=== PATIENT | male | born 1950 | race Caucasian/White ===

== ENCOUNTER 2023-09-19 07:41 | Outpatient (OUT) | payer MEDICARE, SELFPAY | END 2023-09-19 07:42 | disposition home or self-care (01) | LOC: PST 07:42 | PROVIDERS: PCP Family Medicine; Visit Provider Surgery | DX: Z01.818 Encounter for other preprocedural examination (principal); Z12.11 Encounter for screening for malignant neoplasm of colon ==

== ENCOUNTER 2023-09-27 08:31 | Day surgery (SDC) | payer MEDICARE, SELFPAY ==
--- NOTE | 2023-09-27 | OP_ITS ---
OPERATION DATE: ??09/27/2023 PREOPERATIVE DIAGNOSIS:? Colorectal screening. POSTOPERATIVE DIAGNOSIS:? Severe sigmoid diverticulosis, 7 mm pedunculated sigmoid polyp and internal/external hemorrhoids. PROCEDURE:? Colonoscopy to cecum with hot snare polypectomy x1. SURGEON:? Darell Keys M.D. ANESTHESIA:? Monitored anesthesia care. ESTIMATED BLOOD LOSS:? Less than 1 mL. INDICATIONS AND CONSENT:? Patient is a 73-year-old male presents for colorectal screening.? Indications, risks, benefits, alternatives of proceeding with colonoscopy were explained extensively to the patient, including the risks of bleeding, colon perforation or anesthetic complications.? All of his questions were answered.? Informed consent was obtained. PROCEDURE:? Patient brought to the operating room, placed in the left lateral decubitus position.? Monitored anesthesia care was provided.? Rectal exam was performed which showed no masses or blood.? The scope was inserted into the anal canal.? Under direct visualization was advanced.? It was advanced to the cecum where cecal markings were clearly identified.? There was noted to be a good prep.? Upon withdrawal of the scope, mucosal surfaces were carefully examined.? There were no mass lesions or inflammatory changes.? There was severe sigmoid diverticulosis with large, wide mouth diverticula, without inflammatory changes or scarring.? In the distal sigmoid, there was noted to be a pedunculated, 7 mm, erythematous polyp that was removed with hot snare with good hemostasis.? The scope was retroflexed in the anal canal.? There was noted to be internal/external hemorrhoids without stigmata of recent bleeding, as well as prominent rectal veins.? Scope was then withdrawn.? Patient tolerated procedure well, was sent to recovery room in good condition. f/u colonoscopy likely in 3 years CC:? Aly Garrett
[2023-09-27 08:35] VITALS: PULSE 65; RESP 16; TEMP 36.2; O2SAT 99; BMI 27.4
[2023-09-27] MEDS: LACTATED RINGER'S SOLUTION 1,000 ML 50 ML IV (08:55)
[2023-09-27 11:15] VITALS: BP 100/58; PULSE 79; RESP 16; O2SAT 99
[2023-09-27 11:34] VITALS: BP 97/62; PULSE 67; RESP 16; O2SAT 96
--- NOTE | 2023-09-27 11:36 | PC.NURSE ---
small non-bleeding abrasion noted left medial cheek area
== END 2023-09-27 11:48 | disposition home or self-care (01) ==
PROVIDERS: PCP Family Medicine; Visit Provider Surgery
PROC: (CPT 45385; principal; 2023-09-27 09:30)
DX: Z12.11 Encounter for screening for malignant neoplasm of colon (principal); D12.5 Benign neoplasm of sigmoid colon; K64.4 Residual hemorrhoidal skin tags; K57.30 Diverticulosis of large intestine without perforation or abscess without bleeding; N40.1 Benign prostatic hyperplasia with lower urinary tract symptoms; N52.9 Male erectile dysfunction, unspecified; K21.9 Gastro-esophageal reflux disease without esophagitis; I10 Essential (primary) hypertension; E03.9 Hypothyroidism, unspecified; K64.8 Other hemorrhoids; E66.3 Overweight; Z68.29 Body mass index [BMI] 29.0-29.9, adult; Z95.5 Presence of coronary angioplasty implant and graft; Z79.82 Long term (current) use of aspirin; I25.10 Atherosclerotic heart disease of native coronary artery without angina pectoris
CPT/HCPCS: 45385; 88305; J2704

== ENCOUNTER 2024-11-11 10:42 | Emergency (ER) | payer MEDICARE, SELFPAY ==
[2024-11-11 10:47] VITALS: BP 158/88; PULSE 74; TEMP 36.8; O2SAT 98; BMI 26.6
[2024-11-11 10:48] VITALS: BP 158/88; O2SAT 99
--- OUTSIDE RECORDS SUMMARY | 2024-11-11 10:56 | XMS_ITS | CCD ---
Author Organization [facility] Care Team Providers Care Costing Manager Name Role Phone KARAN HERNANDES Unavailable Unavailable HOUSE, TYLER Unavailable Unavailable Unavailable Unavailable House, Tyler Kinsey Unavailable HOUSE, DR PHILLIPS Primary Care Unavailable HERNANDES, DR KARAN Molina Attending Unavailable HERNANDES, DR KARAN Molina Consulting Unavailable HERNANDES, DR KARAN Molina Admitting Unavailable HOUSE, DR PHILLIPS Attending Unavailable HOUSE, DR PHILLIPS Consulting Unavailable HOUSE, DR PHILLIPS Primary Care Unavailable HOUSE, DR PHILLIPS Admitting Unavailable Hernandes, Dr. Karan Hoffman Referring Janeth vailable House, Dr. Tyler Hernandez Primary Care Unava ilable Hernandes, Dr. Karan Hoffman Attending Janeth vailable Hernandes, Dr. Karan Hoffman Attending Janeth vailable Hernandes, Dr. Karan Hoffman Referring Janeth vailable House, Dr. Tyler Hernandez Primary Care Unava ilable Hernandes, Dr. Karan Hoffman Attending Janeth vailable Hernandes, Dr. Karan Hoffman Referring Janeth vailable [place], Dr. Tyler Hernandez Primary Care Unava ilable Juani Bishop Primary Care Physician Juani Bishop MD Primary Care Provider [phone] MD Karan Hernandes Attending Provider MD Juani Bishop Primary Care Provider MD Aníbal Nelson Emergency Provider Aníbal Nelson Admitting Unavailable Aníbal Nelson Attending Unavailable Juani Bishop Primary Care Unavailable Karan Hernandes Attending Unavailable Juani Bishop Primary Care Unavailable Karan Hernandes Admitting Unavailable KARAN HERNANDES Attending Unavailable JUANI BISHOP Primary Care Unavailable KARAN HERNANDES Attending Unavailable KARAN HERNANDES Referring Unavailable JUANI BISHOP Primary Care Unavailable Juani Bishop Attending Unavailable Juani Bishop Attending Unavailable Juani Bishop Attending Unavailable Juani Bishop Admitting Unavailable Juani Bishop Attending Unavailable Juani Bishop Attending Unavailable Juani Bishop Attending Unavailable Juani Bishop Attending Unavailable Juani Bishop Attending Unavailable Juani Bishop Attending Unavailable Juani Bishop Admitting Unavailable Juani Bishop Attending Unavailable Juani Bishop Attending Unavailable Allergies Allergy Classification Reported Allergen(s) Allergy Type Date of Onset Reaction(s) Facility (11 sources) Angiotensin Converting Enzyme (Chandrakant) Inhibitors; Translations: [CHANDRAKANT Inhibitors] Allergy to drug (finding) 3 [facility], Other [facility] 3 Repository (2 sources) Angiotensin-con verting enzyme inhibitor agent Drug Allergy 3 [facility] (3 sources) clopidogrel; Translations: [CLOPIDOGREL] Drug Allergy 4 [facility] Work Phone: (1 source) Angiotensin Converting Enzyme (Chandrakant) Inhibitors Drug allergy (disorder) 4 [facility] Repository (2 sources) No Known Medication Allergies; Translations: [No Known Medication Allergies] Propensity to adverse reactions (disorder) [facility] Repository Medications Current Medications Medication Drug Class(es) Dates Sig (Normalized) Sig (Original) allopurinol 300 mg oral tablet (12 sources) Xanthine Oxidase Inhibitor Start: 06-04-2024 take 1 tablet by mouth once daily allopurinol 300 mg Tab See Instructions, TAKE 1 TABLET BY MOUTH EVERY DAY, # 90 tab(s), Refills(s) 0, Pharmacy: [facility] #[id number], 171, cm, 04/25/24 9:36:00 EDT, Height/Length Dosing, 77.9, kg, 04/25/24 9:36:00 EDT, Weight Dosing Start Date: 06/04/24 Status: Ordered Start: 08-25-2023 take 300 mg by mouth once willian y Allopurinol Active 300 MG PO Daily January 15, 2024 1:00am amLODIPine 5 mg oral tablet (16 sources) Dihydropyridine Calcium Channel Baldemar Start: 05-26-2022 End: 05-14-2025 take 1 tablet by mouth once daily amLODIPine (Norvasc) 5 mg tablet Indications: Benign essential hypertension Take 1 tablet (5 mg) by mouth once daily. 90 tablet 3 05/14/2024 05/14/2025 Active aspirin 81 mg delayed release oral tablet (17 sources) Platelet Aggregation Inhibitor, Nonsteroidal Anti-inflammatory Drug Start: 10-25-2024 End: 10-25-2025 take 1 tablet by mouth three times weekly aspirin 81 mg EC tablet Indications: Atherosclerosis of [place] coronary artery of [place] heart without angina pectoris Take 1 tablet (81 mg) by mouth 3 (three) times a week. 36 tablet 3 10/25/2024 10/25/2025 Active Start: 08-25-2023 take 1 tablet by elke th once daily Aspirin Low Dose 81 mg oral enteric coated tablet TAKE 1 TABLET BY MOUTH DAILY Start Date: 08/25/23 Status: Ordered Start: 06-10-2022 End: 10-24-2024 take 1 tablet by mouth once daily aspirin 81 mg EC tablet Indications: Atherosclerosis of [place] coronary artery of [place] heart without angina pectoris TAKE 1 TABLET BY MOUTH DAILY 90 tablet 3 10/18/2023 10/24/2024 Discontinued (Reorder) atenolol 50 mg oral tablet (17 sources) beta-Adrenergic Baldemar Start: 08-12-2024 take 1 tablet by mouth once daily atenolol (Tenormin) 50 mg tablet Indications: Benign essential hypertension TAKE 1 TABLET BY MOUTH EVERY DAY 90 tablet 3 08/12/2024 Active Start: 08-25-2021 take 50 mg by mouth once daily Atenolol Active 50 MG PO Daily January 15, 2024 1:00am atorvastatin 40 mg oral tablet (16 sources) HMG-CoA Reductase Inhibitor Start: 05-26-2022 End: 05-14-2025 take 1 tablet by mouth once daily atorvastatin (Lipitor) 40 mg tablet Indications: Mixed hyperlipidemia Take 1 tablet (40 mg) by mouth once daily. 90 tablet 3 05/14/2024 05/14/2025 Active clopidogrel 75 mg oral tablet (1 source) P2Y12 Platelet Inhibitor Start: 01-15-2024 take 75 mg by mouth once daily Clopidogrel Active 75 MG PO Daily January 15, 2024 1:00am escitalopram 10 mg oral tablet (1 source) Serotonin Reuptake Inhibitor Start: 06-13-2024 take 1 tablet by mouth once daily escitalopram 10 mg Tab See Instructions, TAKE 1 TABLET BY MOUTH DAILY, # 30 tab(s), Refills(s) 0, Pharmacy: [facility] #[id number], 171, cm, 04/25/24 9:36:00 EDT, Height/Length Dosing, 77.9, kg, 04/25/24 9:36:00 EDT, Weight Dosing Start Date: 06/13/24 Status: Ordered lamoTRIgine 100 mg oral tablet (12 sources) Mood Stabilizer, Anti-epileptic Agent Start: 08-25-2023 take 1 tablet by mouth once daily lamotrigine 100 mg Tab See Instructions, TAKE 1 TABLET BY MOUTH DAILY, # 90 tab(s), Refills(s) 0, Pharmacy: [facility] #[id number], 171, cm, 04/25/24 9:36:00 EDT, Height/Length Dosing, 77.9, kg, 04/25/24 9:36:00 EDT, Weight Dosing Start Date: 06/13/24 Status: Ordered take 1 tablet by mouth once willian y lamoTRIgine ER 100 MG Oral Tablet Extended Release 24 Hour Take 1 tablet daily Quantity: 0 Refills: 0 Ordered: 21-Sep-2022 DO Active levothyroxine sodium 0.075 mg oral tablet (12 sources) l-Thyroxine Start: 06-13-2024 take 1 tablet by mouth once daily levothyroxine 75 mcg (0.075 mg) Tab See Instructions, TAKE 1 TABLET BY MOUTH DAILY, # 90 tab(s), Refills(s) 0, Pharmacy: [facility] #[id number], 171, cm, 04/25/24 9:36:00 EDT, Height/Length Dosing, 77.9, kg, 04/25/24 9:36:00 EDT, Weight Dosing Start Date: 06/13/24 Status: Ordered Start: 01-15-2024 take 75 ug by mouth once daily Levothyroxine Active 75 MCG PO Daily January 15, 2024 1:00am Start: 08-25-2023 take 1 tablet by elke once daily levothyroxine 75 mcg (0.075 mg) Tab 75 mcg = 1 tab(s), Oral, Daily, # 90 tab(s), Refills(s) 0 Start Date: 08/25/23 Status: Ordered nitroglycerin 0.4 mg sublingual tablet (3 sources) Nitrate Vasodilator Start: 08-25-2023 nitroglycerin 0.4 mg sublingual Tab 0.4 mg = 1 tab(s), SubLingual, q5min, PRN for chest pain, # 100 tab(s), Refills(s) 0 Start Date: 08/25/23 Status: Ordered pantoprazole 40 mg delayed release oral tablet (11 sources) Proton Pump Inhibitor Start: 09-12-2024 End: 09-12-2025 take 1 tablet by mouth once daily before mealtime pantoprazole (ProtoNix) 40 mg EC tablet Indications: Other chest pain Take 1 tablet (40 mg) by mouth once daily in the morning. Take before meals. 90 tablet 3 09/12/2024 09/12/2025 Active Start: 09-21-2022 take 40 mg by mouth once daily Pantoprazole Active 40 MG PO Daily January 15, 2024 1:00am sildenafil 100 mg oral tablet (12 sources) Phosphodiesterase 5 Inhibitor Start: 08-25-2023 take 1 tablet by mouth once daily as needed sildenafil 100 mg Tab 100 mg = 1 tab(s), Oral, Daily, PRN for erectile dysfunction, Refills(s) 0 Start Date: 08/25/23 Status: Ordered tamsulosin hydrochloride 0.4 mg oral capsule (2 sources) alpha-Adrenergic Baldemar Start: 08-25-2023 take 1 capsule by mouth once daily Flomax 0.4 mg Cap 0.4 mg = 1 cap(s), Oral, Daily, # 90 cap(s), Refills(s) 0, Pharmacy: [facility] #[id number], 166, cm, 08/25/23 8:58:00 EDT, Height/Length Dosing, 80, kg, 08/25/23 8:58:00 EDT, Weight Dosing Start Date: 08/25/23 Status: Ordered ticagrelor 90 mg oral tablet (3 sources) Start: 03-15-2024 End: 03-15-2025 take 1 tablet by mouth twice daily ticagrelor (Brilinta) 90 mg tablet Indications: Status post coronary angioplasty Take 1 tablet (90 mg) by mouth 2 times a day. 180 tablet 3 03/15/2024 03/15/2025 Active valsartan 80 mg oral tablet (12 sources) Angiotensin 2 Receptor Baldemar Start: 08-12-2024 take 1 tablet by mouth once daily valsartan (Diovan) 80 mg tablet Indications: Benign essential hypertension TAKE 1 TABLET BY MOUTH DAILY 90 tablet 3 08/12/2024 Active Start: 09-21-2022 take 80 mg by mouth once daily Valsartan Active 80 MG PO Daily January 15, 2024 1:00am Completed/Discontinued Medications Medication Drug Class(es) Dates Sig (Normalized) Sig (Original) bifidobacterium animalis [id number] unt / lactobacillus acidophilus [id number] unt oral capsule (6 sources) Probiotic CAPS T CONCEPCIÓN 1 CAPSULE Daily Quantity: 0 Refills: 0 Ordered: 21-Sep-2022 DO Active Problems Active Problems Problem Classification Problem Date Documented Da te Episodic/Chronic Anxiety disorders (1 source) Anxiety attack 02-22-2024 Chronic Coronary atherosclerosis and other heart disease (20 sources) Atherosclerotic heart disease of [place] coronary artery without angina pectoris; Translations: [Coronary atherosclerosis] Onset: 8 04-02-2024 Chronic Coronary atherosclerosis and other heart disease (1 source) Coronary atherosclerosis and other heart disease Onset: 8 Disorders of lipid metabolism (17 sources) Mixed hyperlipidemia; Translations: [Mixed hyperlipidemia] Onset: 2 04-02-2024 Chronic Diverticulosis and diverticulitis (1 source) Diverticulosis of sigmoid colon 10-17-2023 Chronic Esophageal disorders (3 sources) Gastroesophageal reflux disease without esophagitis 08-25-2023 Chronic Essential hypertension (20 sources) Benign essential hypertension; Translations: [Benign essential hypertension] Onset: 2 Chronic Essential hypertension (1 source) Essential hypertension Onset: 8 Gout and other crystal arthropathies (20 sources) Gout; Translations: [Gout, unspecified] Onset: 2 Chronic Hyperplasia of prostate (4 sources) Benign prostatic hyperplasia without lower urinary tract symptoms; Translations: [Benign prostatic hypertrophy with outflow obstruction] Onset: 2 08-25-2023 Chronic Other and unspecified benign neoplasm (1 source) Benign neoplasm of sigmoid colon 10-17-2023 Episodic Other diseases of kidney and ureters (1 source) Urinary tract obstruction; Translations: [Other obstructive and reflux uropathy] Onset: 3 Episodic Other gastrointestinal disorders (3 sources) Constipation 08-25-2023 Episodic Other male genital disorders (3 sources) Impotence 08-25-2023 Chronic Other male genital disorders (1 source) Pain in testicle 11-21-2023 Episodic Other nutritional; endocrine; and metabolic disorders (17 sources) Overweight in adulthood with body mass index of 25 or more but less than 30; Translations: [Body Mass Index 27.0-27.9, adult] Onset: 4 08-25-2023 Episodic Other screening for suspected conditions (not mental disorders or infectious disease) (1 source) Screening for malignant neoplasm of colon done; Translations: [Encounter for screening for malignant neoplasm of colon] Onset: 3 Episodic Thyroid disorders (19 sources) Hypothyroidism; Translations: [Unspecified acquired hypothyroidism] Onset: 2 08-25-2023 Chronic Unclassified (2 sources) Athscl heart disease of [place] coronary artery w/o ang pctrs / I25.10(ICD-9) Onset: 8 Unclassified (5 sources) Patient encounter status 08-25-2023 Past or Other Problems Problem Classification Problem Date Documented Da te Episodic/Chronic Coronary atherosclerosis and other heart disease (17 sources) Past history of procedure; Translations: [Percutaneous transluminal coronary angioplasty status] Onset: 10-18-2023 04-02-2024 Episodic Nonspecific chest pain (4 sources) Chest pain; Translations: [Other chest pain] Onset: 01-12-2024 01-12-2024 Episodic Other nutritional; endocrine; and metabolic disorders (8 sources) Overweight; Translations: [Overweight] Onset: 04-02-2024 08-25-2023 Episodic Other nutritional; endocrine; and metabolic disorders (1 source) Overweight; Translations: [Overweight] Onset: 04-02-2024 Episodic Other nutritional; endocrine; and metabolic disorders (2 sources) Body mass index (BMI) 26.0-26.9, adult; Translations: [Body mass index (BMI) 26.0-26.9, adult] Onset: 04-02-2024 Episodic Residual codes; unclassified (3 sources) Never smoked tobacco; Translations: [Other specified health status] Onset: 04-02-2024 04-02-2024 Episodic Residual codes; unclassified (2 sources) Other specified health status; Translations: [Other specified health status] Onset: 04-02-2024 Episodic Unclassified (6 sources) Never smoked tobacco; Translations: [Never a smoker] Unclassified (2 sources) Onset: 04-02-2024 04-02-2024 Results Test Name Value Interpretation Reference Range Facil ity Ambulatory Visit Summaryon 1 12-31-2023 Ambulatory Visit Summary Ambulatory Visit Summary GARETH MENJIVAR :1950 Visit Date:10/30/2024 Ambulatory Visit Instructions Your Diagnosis HTN (hypertension) BMI 26.0-26.9,adult Over weight Nonsmoker Anxiety attack GERD without esophagitis Acquired hypothyroidism ED (erectile dysfunction) Gout Your Care Team Attending Physician - Juani Bishop MD Primary Care Physician - Juani Bishop MD This Is Your Medications List sildenafil (sildenafil 100 mg Tab) Contact prescribing physician if questions or concerns allopurinol (allopurinol 300 mg Tab) amlodipine (amLODIPine 5 mg Tab) aspirin (Aspirin Low Dose 81 mg oral enteric coated tablet) atenolol (atenolol 50 mg Tab) atorvastatin (atorvastatin 40 mg Tab) escitalopram (escitalopram 10 mg Tab) lamotrigine (lamotrigine 100 mg Tab) levothyroxine (levothyroxine 75 mcg (0.075 mg) Tab) nitroglycerin (nitroglycerin 0.4 mg sublingual Tab) pantoprazole (Pantoprazole [address] Tab) ticagrelor (ticagrelor 90 mg oral tablet) valsartan (valsartan 80 mg Tab) Procedures Performed Cardiac catheterization (01/15/2024), Colonoscopy (09/27/2023), Coronary artery stent (2015), Amputation of finger of left hand, Arthroscopy of wrist, Colonoscopy, Repair of umbilical hernia, Tonsillectomy. Discharge Vitals Temperature (Temporal Artery) 36.2 ???C Heart Rate (Peripheral) 60 Respiratory Rate 16 Blood Pressure 118/76 Height 171 cm Height 67 in Weight 77.9 kg Weight 171.74 lb BMI 26.64 What to do next Scheduled Follow-Up Appointments Monday 1:00 PM EST With: Where: [address] [address]- Monday 10:45 AM EDT With: Fransisco DAMON, Juani Sorto Where: [address] [address]- Medications What How Much When Instructions Unchanged sildenafil (sildenafil 100 mg Tab) 1 Tablets By Mouth Every day as needed for for erectile dysfunction Pickup at [facility] #[id number] Unchanged allopurinol (allopurinol 300 mg Tab) See instructions TAKE 1 TABLET BY MOUTH EVERY DAY Contact prescribing physician if questions or concerns Unchanged amlodipine (amLODIPine 5 mg Tab) 1 Tablets By Mouth Every day Contact prescribing physician if questions or concerns Unchanged aspirin (Aspirin Low Dose 81 mg oral enteric coated tablet) TAKE 1 TABLET BY MOUTH DAILY Contact prescribing physician if questions or concerns Unchanged atenolol (atenolol 50 mg Tab) 1 Tablets By Mouth Every day Contact prescribing physician if questions or concerns Unchanged atorvastatin (atorvastatin 40 mg Tab) 1 Tablets By Mouth Every day Contact prescribing physician if questions or concerns Unchanged escitalopram (escitalopram 10 mg Tab) See instructions TAKE 1 TABLET BY MOUTH DAILY Contact prescribing physician if questions or concerns Unchanged lamotrigine (lamotrigine 100 mg Tab) See instructions TAKE 1 TABLET BY MOUTH DAILY Contact prescribing physician if questions or concerns Unchanged levothyroxine (levothyroxine 75 mcg (0.075 mg) Tab) See instructions TAKE 1 TABLET BY MOUTH DAILY Contact prescribing physician if questions or concerns Unchanged nitroglycerin (nitroglycerin 0.4 mg sublingual Tab) 1 Tablets Sublingual Every 5 minutes as needed for for chest pain Contact prescribing physician if questions or concerns Unchanged pantoprazole (Pantoprazole [address] Tab) 1 Tablets By Mouth Every day TAKE 1 TABLET BY MOUTH 30 MINUTES BEFORE A MEAL Contact prescribing physician if questions or concerns Unchanged ticagrelor (ticagrelor 90 mg oral tablet) 1 Tablets By Mouth 2 times a day Contact prescribing physician if questions or concerns Unchanged valsartan (valsartan 80 mg Tab) 1 Tablets By Mouth Every day Contact prescribing physician if questions or concerns Pharmacy Information [facility] #[id number]: [address], [place] [phone] Allergies No Known Allergies No Known Medication Allergies Problems Ongoing - Any problem that you are currently receiving treatment for. Acquired hypothyroidism Anemia Anxiety attack Benign neoplasm of sigmoid colon Body mass index (BMI) of 29.0-29.9 in adult BPH with urinary obstruction CAD in [place] artery Constipation ED (erectile dysfunction) GERD without esophagitis Gout HTN (hypertension) Overweight Screening for skin cancer Screening PSA (prostate specific antigen) Sigmoid diverticulosis Testicular pain Patient Survey You may receive a survey via text or e-mail asking about your office visit. Please share your experience with us by completing your survey. We appreciate your feedback and thank you for choosing us for your care. Normal [facility] Family Medicine Office/Clini c Noteon 10-30-2024 Family Medicine Office/Clinic Note Family Medicine Office/Clinic Note HPI Staff Gaerth is a 74 year old male presenting for 6 month follow up htn, anxeity Please ask the patient why they are on Lamictal. Patient says Dr Bhatia put him on this for anxiety Patient is here for follow up on hypertension. How often are you checking your blood pressure? Doesnt check BP at home What are your average readings? N/A, Not checking at home Yearly BMP: 06/19/24_ Follow up for Mental Status: Medication adherence- Yes, takes medication as prescribed Medication refill needed: _ Suicidal thoughts-Not at this time Most recent RAMOS: 6 Most recent PHQ: 0 questions/concerns: none History of Present Illness Patient presents for his 6-month follow-up. Patient has no concerns today outside of staff HPI. Patient needs a refill on his ED medication. Patient believes all of his medical issues are stable without any concerns. Review of Systems PHQ Score Initial Depression Screen Score: 0 SCORE Physical Exam Vitals & Measurements T: 36.2 ???C(Temporal Artery) HR: 60(Peripheral) RR: 16 BP: 118/76 SpO2: 99% HT: 67 in HT: 171 cm WT: 77.9 kg WT: 171.74 lb BMI: 26.64 General: alert, no acute distress ENMT: oral mucosa moist, Cardiovascular: regular rate and rhythm, normal peripheral perfusion Respiratory: Lungs CTA, respirations non labored Extremities: no deformity, no trauma Neurological: oriented x 4, LOC appropriate for age, CN II-XII intact, motor strength equal & normal bilaterally, speech normal Abdomen: Soft, Nontender, Non-distended, + BS Assessment/Plan 1. HTN (hypertension) (I10: Essential (primary) hypertension) At goal today. Will review patient's labs and send them to cardiology. Ordered: Body Mass Index (BMI) documented 3008F Current tobacco non-user 1036F Depression Screening Negative 3352F Most recent diastolic blood pressure <80 mm Hg 3078F Patient screen for fall risk: no falls in last year or 1 fall with no injury in last year 1101F Systolic BP <130 mm Hg (Most Recent) 3074F 2. BMI 26.0-26.9,adult (Z68.26: Body mass index [BMI] 26.0-26.9, adult) BMI education added Ordered: Body Mass Index (BMI) documented 3008F Current tobacco non-user 1036F Depression Screening Negative 3352F Most recent diastolic blood pressure <80 mm Hg 3078F Patient screen for fall risk: no falls in last year or 1 fall with no injury in last year 1101F Systolic BP <130 mm Hg (Most Recent) 3074F 3. Over weight (E66.3: Overweight) Diet and exercise advised Ordered: Body Mass Index (BMI) documented 3008F Current tobacco non-user 1036F Depression Screening Negative 3352F Most recent diastolic blood pressure <80 mm Hg 3078F Patient screen for fall risk: no falls in last year or 1 fall with no injury in last year 1101F Systolic BP <130 mm Hg (Most Recent) 3074F 4. Nonsmoker (Z78.9: Other specified health status) Please continue not to smoke Ordered: Body Mass Index (BMI) documented 3008F Current tobacco non-user 1036F Depression Screening Negative 3352F Most recent diastolic blood pressure <80 mm Hg 3078F Patient screen for fall risk: no falls in last year or 1 fall with no injury in last year 1101F Systolic BP <130 mm Hg (Most Recent) 3074F 5. Anxiety attack (F41.0: Panic disorder [episodic paroxysmal anxiety]) Patient states he uses the Lamictal to help with the anxiety. Patient states it works well for him. Patient states his anxiety is well-controlled. 6. GERD without esophagitis (K21.9: Gastro-esophageal reflux disease without esophagitis) Continue PPI 7. Acquired hypothyroidism (E03.9: Hypothyroidism, unspecified) No symptoms of hypo or hyperthyroidism. Will do labs in a few months to recheck TSH. 8. ED (erectile dysfunction) (N52.9: Male erectile dysfunction, unspecified) Patient would like a refill on his ED medication. Patient states it works well for him. Precautions on the use of nitroglycerin if you have had sildenafil in the last 24 to 48 hours. 9. Gout (M10.9: Gout, unspecified) Will check a uric acid level. Recommended the use of naproxen at the first signs of an attack. Orders: sildenafil, 100 mg = 1 tab(s), Oral, Daily, PRN for erectile dysfunction, # 15 tab(s), Refills(s) 0, Pharmacy: [facility] #[id number], 171, cm, 10/30/24 13:04:00 EST, Height/Length Dosing, 77.9, kg, 10/30/24 13:04:00 EST, Weight Dosing Follow-up No qualifying data available Patient Education BMI for Adults Problem List/Past Medical History Ongoing Acquired hypothyroidism Anemia Anxiety attack Benign neoplasm of sigmoid colon Body mass index (BMI) of 29.0-29.9 in adult BPH with urinary obstruction CAD in [place] artery Constipation ED (erectile dysfunction) GERD without esophagitis Gout HTN (hypertension) Overweight Screening for skin cancer Screening PSA (prostate specific antigen) Sigmoid diverticulosis Testicular pain Historical No qualifying data Procedure/Surgical His (more content not included)... Normal [facility] Comment on above: Result Comment: Elec tronically Signed By: Juani Bishop MD\.br\Date and Time Signed: 10/30/24 13:27 EST Pre-Visit Planningon 024 Pre-Visit Planning Pre-Visit Planning - From: Prudence Horton To: Juani Bishop MD; Sent: 10/29/2024 09:28:41 EST Subject: Pre-Visit Planning Due Date/Time: 10/29/2024 09:28:00 EST Caller Name: GARETH MENJIVAR; Caller Number: , Cory Bishop. During a pre-visit planning chart review, I noted the following medication documented in the medical record: lamotrigine 100 mg PO daily. Based on your medical judgement, can you please indicate what conditions indicate the necessity of the medication/treatment ? I can update the Chronic Problem List with your response if you would like. -Additional comments: In responding to this request, please exercise your independent professional judgement. The fact that a question is asked does not imply that any particular answer is desired or expected. If you have any questions, please feel free to contact me at extension [phone]. Thank you! Prudence Horton LPN Clinical Runstitching Machine Operator [place] [id number] Extension: [phone] [email or web address] - From: Fransisco DAMON, Juani Sorto To: Prudence Horton; Sent: 10/29/2024 12:24:06 EST Subject: RE: Pre-Visit Planning Caller Name: GARETH MENJIVAR; Caller Number: Gerald , Tracy Will ask tomorrow. Normal [facility] CBC w/ Auto Diffon 4 Basophils/100 WBC (Bld) 0.3 % Normal 0.0-2.0 [facility] Comment on above: Performed By: #### 2 [id number] #### [facility] [address] [place] [address] Basophils/Leukocytes Auto (Bld) [Pure # fraction] 0.0 E9/L Normal 0.0-0.2 [facility] Comment on above: Performed By: #### 2 [id number] #### [facility] [address] [place] [address] Eosinophils (Bld) [#/Vol] 0.0 E9/L Normal 0.0-0.5 [facility] Comment on above: Performed By: #### 2 [id number] #### [facility] [address] [place] [address] Eosinophils/100 WBC (Bld) 1.0 % Normal 0.0-8.0 [facility] Comment on above: Performed By: #### 2 [id number] #### [facility] [address] [place] [address] Erythrocyte distribution width (RBC) [Ratio] 13.9 % Normal 10.9-14.2 [facility] Comment on above: Performed By: #### 2 [id number] #### [facility] [address] [place] [address] Hematocrit (Bld) [Volume fraction] 35.5 % Low 37.7-49.0 [facility] Comment on above: Performed By: #### 2 [id number] #### [facility] [address] [place] [address] Hemoglobin (Bld) [Mass/Vol] 11.9 g/dL Low 13.5-17.5 [facility] Comment on above: Performed By: #### 2 [id number] #### [facility] [address] [place] [address] Lymphocytes (Bld) [#/Vol] 1.5 E9/L Normal 1.0-4.0 [facility] Comment on above: Performed By: #### 2 210861 #### [facility] [address] [place] [address] Lymphocytes/100 WBC (Bld) 37.8 % Normal 14.0-50.0 [facility] Comment on above: Performed By: #### 2 [id number] #### [facility] [address] [place] [address] MCH (RBC) [Entitic mass] 31.6 pg Normal 27.0-34.0 [facility] Comment on above: Performed By: #### 2 [id number] #### [facility] [address] [place] [address] MCHC (RBC) [Mass/Vol] 33.6 g/dL Normal 31.4-36.0 [facility] Comment on above: Performed By: #### 2 [id number] #### [facility] [address] [place] [address] MCV (RBC) [Entitic vol] 93.8 fL Normal 80.0-100.0 [facility] Comment on above: Performed By: #### 2 097346 #### [facility] [address] [place] [address] Monocytes (Bld) [#/Vol] 0.2 E9/L Normal 0.2-1.0 [facility] Comment on above: Performed By: #### 2 [id number] #### [facility] [address] [place] [address] Neutrophils (Bld) [#/Vol] 2.3 E9/L Normal 2.0-7.5 [facility] Comment on above: Performed By: #### 2 [id number] #### [facility] [address] [place] [address] Neutrophils/100 WBC (Bld) 55.1 % Normal 36.0-75.0 [facility] Comment on above: Performed By: #### 2 337891 #### [facility] [address] [place] [address] Platelet 149.0 E9/L Low 150.0-500.0 [facility] Comment on above: Performed By: #### 2 551591 #### [facility] [address] [place] [address] Platelet mean volume (Bld) [Entitic vol] 9.3 fL Normal 6.4-10.8 [facility] Comment on above: Performed By: #### 2 [id number] #### [facility] [address] [place] [address] RBC (Bld) [#/Vol] 3.8 E12/L Low 4.3-5.9 [facility] Comment on above: Performed By: #### 2 [id number] #### [facility] [address] [place] [address] WBC corrected for nucl RBC Auto (Bld) [#/Vol] 4.1 E9/L Normal 4.0-11.0 [facility] Comment on above: Performed By: #### 2 235169 #### [facility] [address] [place] [address] CHEMISTRYOrdered By: SYSTEM SYSTEM on 06-19-2024 Albumin [Mass/Vol] 4.5 g/dL Normal 3.3 - 5.0 gm/dL R emisol Chem Albumin/Globulin [Mass ratio] 2.0 {ratio} Normal 1.1 - 2.2 [facility] ALP [Catalytic activity/Vol] 73 [iU]/d Normal 21 - 98 Int._Unit/L [facility] ALT No additional P-5'-P [Catalytic activity/Vol] 19 [iU]/d Normal 6 - 46 Int._Unit/L [facility] Anion gap [Moles/Vol] 13 mmol/L Normal 6 - 16 mEq/L [facility] AST [Catalytic activity/Vol] 22 [iU]/d Normal 5 - 43 Int._Unit/L [facility] Bilirubin [Mass/Vol] 0.9 mg/dL Normal 0.0 - 1.1 mg/dL [facility] Calcium [Mass/Vol] 8.9 mg/dL Normal 8.9 - 11.1 mg/dL [facility] Chloride [Moles/Vol] 102 mmol/L Normal 101 - 111 mmol/ L [facility] Cholesterol [Mass/Vol] 108 mg/dL Low 120 - 200 mg/dL [facility] Cholesterol in HDL [Mass/Vol] 41 mg/dL Invalid Interpretation Code [facility] Comment on above: Result Comment: '>= 60 LOW RISK' '<= 40 HIGH RISK' Cholesterol in LDL [Mass/Vol] 52 mg/dL Normal <=129mg/dL [facility] Cholesterol in VLDL [Mass/Vol] 16 mg/dL Normal 7 - 40 mg/dL [facility] CO2 [Moles/Vol] 25 mmol/L Normal 21 - 31 mmol/L [facility] Creatinine [Mass/Vol] 0.9 mg/dL Normal 0.5 - 1.3 mg/dL [facility] eGFR 91 mL/min/1.73 m2 Normal >=59mL/min/1.73 m2 [facility] Globulin (S) [Mass/Vol] 2.2 g/dL Normal 1.4 - 4.0 gm/dL [facility] Glucose [Mass/Vol] 100 mg/dL Normal 55 - 199 mg/dL Re misol Chem Potassium [Moles/Vol] 4.5 mmol/L Normal 3.5 - 5.3 mmol/L [facility] Prostate specific Ag [Mass/Vol] 1.5 ng/mL Normal 0.1 - 3.5 ng/mL [facility] Comment on above: Interpretive Data: T he concentration of PSA determined by different manufacturers can vary due to differences in assay methods and reagent specificity. Values obtained from different assay methods cannot be used interchangeably. The methodology used for this result was chemiluminescence using [employer]'s Access Hybritech PSA reagent. Protein [Mass/Vol] 6.7 g/dL Normal 6.0 - 7.8 gm/dL R em[facility] Chem Sodium [Moles/Vol] 135 mmol/L Normal 135 - 145 mmol/L [facility] Triglyceride [Mass/Vol] 80 mg/dL Normal <=149mg/dL [facility] TSH Qn 1.85 m[IU]/L Normal 0.34 - 5.60 mcIU/mL Rem [facility] Urate (U) [Mass/Vol] 4.4 mg/dL Normal 2.2 - 7.4 mg/dL [facility] Urea nitrogen [Mass/Vol] 16 mg/dL Normal 5 - 21 mg/dL [facility] Urea nitrogen/Creatinine [Mass ratio] 18 mg/mg Normal 10 - 20 [facility] CMPon 06-19-2024 Albumin [Mass/Vol] 4.5 g/dL Normal 3.3-5.0 [facility] Comment on above: Performed By: #### 2 [id number] #### [facility] [address] [place] [address] Albumin/Globulin (S) [Mass conc ratio] 2.0 Normal 1.1-2.2 [facility] Comment on above: Performed By: #### 2 139416 #### [facility] [address] [place] [address] ALP [Catalytic activity/Vol] 73 Int._Unit/L Normal 21-98 [facility] Comment on above: Performed By: #### 2 606291 #### [facility] [address] [place] [address] ALT No additional P-5'-P [Catalytic activity/Vol] 19 Int._Unit/L Normal 6-46 [facility] Comment on above: Performed By: #### 2 992584 #### [facility] [address] [place] [address] Anion gap [Moles/Vol] 13 mmol/L Normal 6-16 [facility] Comment on above: Performed By: #### 2 710260 #### [facility] [address] [place] [address] AST [Catalytic activity/Vol] 22 Int._Unit/L Normal 5-43 [facility] Comment on above: Performed By: #### 2 053344 #### [facility] [address] [place] [address] Bilirubin [Mass/Vol] 0.9 mg/dL Normal 0.0-1.1 [facility] Comment on above: Performed By: #### 2 451221 #### [facility] [address] [place] [address] Calcium [Mass/Vol] 8.9 mg/dL Normal 8.9-11.1 [facility] Comment on above: Performed By: #### 2 716826 #### [facility] [address] [place] [address] Chloride [Moles/Vol] 102 mmol/L Normal 101-111 [facility] Comment on above: Performed By: #### 2 350749 #### [facility] [address] [place] [address] CO2 [Moles/Vol] 25 mmol/L Normal 21-31 [facility] Comment on above: Performed By: #### 2 331305 #### [facility] [address] [place] [address] Creatinine [Mass/Vol] 0.9 mg/dL Normal 0.5-1.3 [facility] Comment on above: Performed By: #### 2 [id number] #### [facility] [address] [place] [address] Globulin (S) [Mass/Vol] 2.2 g/dL Normal 1.4-4.0 [facility] Comment on above: Performed By: #### 2 001793 #### [facility] [address] [place] [address] Glucose [Mass/Vol] 100 mg/dL Normal 55-199 [facility] Comment on above: Performed By: #### 2 668675 #### [facility] [address] [place] [address] Potassium [Moles/Vol] 4.5 mmol/L Normal 3.5-5.3 [facility] Comment on above: Performed By: #### 2 739697 #### [facility] [address] [place] [address] Protein [Mass/Vol] 6.7 g/dL Normal 6.0-7.8 [facility] Comment on above: Performed By: #### 2 416791 #### [facility] [address] [place] [address] Sodium [Moles/Vol] 135 mmol/L Normal 135-145 [facility] Comment on above: Performed By: #### 2 886956 #### [facility] [address] [place] [address] Urea nitrogen [Mass/Vol] 16 mg/dL Normal 5-21 [facility] Comment on above: Performed By: #### 2 021186 #### [facility] [address] [place] [address] Urea nitrogen/Creatinine [Mass ratio] 18 No Units Normal 10-20 [facility] Comment on above: Performed By: #### 2 [id number] #### [facility] [address] [place] [address] HEMATOLOGYOrdered By: SYSTEM SYSTEM on 06-19-2024 Basophils/100 WBC (Bld) 0.3 % Normal 0.0 - 2.0 % [facility] Basophils/Leukocytes Auto (Bld) [Pure # fraction] 0.0 E9/L Normal 0.0 - 0.2 E9/L [facility] Eosinophils (Bld) [#/Vol] 0.0 E9/L Normal 0.0 - 0.5 E9/L [facility] Eosinophils/100 WBC (Bld) 1.0 % Normal 0.0 - 8.0 % [facility] Erythrocyte distribution width (RBC) [Ratio] 13.9 % Normal 10.9 - 14.2 % [facility] Hematocrit (Bld) [Volume fraction] 35.5 % Low 37.7 - 49.0 % [facility] Hemoglobin (Bld) [Mass/Vol] 11.9 g/dL Low 13.5 - 17.5 gm/dL [facility] Lymphocytes (Bld) [#/Vol] 1.5 E9/L Normal 1.0 - 4.0 E9/L [facility] Lymphocytes/100 WBC (Bld) 37.8 % Normal 14.0 - 50.0 % [facility] MCH (RBC) [Entitic mass] 31.6 pg Normal 27.0 - 34.0 pg [facility] MCHC (RBC) [Mass/Vol] 33.6 g/dL Normal 31.4 - 36.0 gm/dL [facility] MCV (RBC) [Entitic vol] 93.8 fL Normal 80.0 - 100.0 fL [facility] Monocytes (Bld) [#/Vol] 0.2 E9/L Normal 0.2 - 1.0 E9/L [facility] Monocytes/100 WBC (Bld) 5.8 % Normal 4.0 - 14.0 % [facility] Neutrophils (Bld) [#/Vol] 2.3 E9/L Normal 2.0 - 7.5 E9/L [facility] Neutrophils/100 WBC (Bld) 55.1 % Normal 36.0 - 75.0 % [facility] Platelet 149.0 E9/L Low 150.0 - 500.0 E9/L [facility] Platelet mean volume (Bld) [Entitic vol] 9.3 fL Normal 6.4 - 10.8 fL [facility] RBC (Bld) [#/Vol] 3.8 E12/L Low 4.3 - 5.9 E12/L Re misol Heme WBC corrected for nucl RBC Auto (Bld) [#/Vol] 4.1 E9/L Normal 4.0 - 11.0 E9/L [facility] Lipid Panelon 06-19-2024 Cholesterol [Mass/Vol] 108 mg/dL Low 120-200 [facility] Comment on above: Performed By: #### 2 [id number] #### [facility] [address] [place] [address] Cholesterol in HDL [Mass/Vol] 41 mg/dL Invalid Interpretation Code [facility] Comment on above: Result Comment: '>= 60 LOW RISK' '<= 40 HIGH RISK' Performed By: #### 2 [id number] #### [facility] [address] [place] [address] Cholesterol in LDL [Mass/Vol] 52 mg/dL Normal <=129 [facility] Comment on above: Performed By: #### 2 238996 #### [facility] [address] [place] [address] Cholesterol in VLDL [Mass/Vol] 16 mg/dL Normal 7-40 [facility] Comment on above: Performed By: #### 2 880394 #### [facility] [address] [place] [address] Triglyceride [Mass/Vol] 80 mg/dL Normal <=149 [facility] Comment on above: Performed By: #### 2 996110 #### [facility] [address] [place] [address] PSA Screen, Totalon 06-19-20 24 Prostate specific Ag [Mass/Vol] 1.5 ng/mL Normal 0.1-3.5 [facility] Comment on above: Result Comment: The concentration of PSA determined by different manufacturers can vary due to differences in assay methods and reagent specificity. Values obtained from different assay methods cannot be used interchangeably. The methodology used for this result was chemiluminescence using [employer]'s Access Hybritech PSA reagent. Performed By: #### 1 [id number] #### [facility] [address] [place] [address] TSH With T4fr Reflexon 06-19 TSH Qn 1.85 m[IU]/L Normal 0.34-5.60 [facility] Comment on above: Performed By: #### 1 [id number] #### [facility] [address] [place] [address] Uric Acidon 06-19-2024 Urate (U) [Mass/Vol] 4.4 mg/dL Normal 2.2-7.4 [facility] Comment on above: Performed By: #### 2 610484 #### [facility] [address] [place] [address] eGFRon 06-19-2024 eGFR 91 mL/min/1.73 m2 Normal >=59 [facility] Comment on above: Order Comment: Order added by Discern Expert. Performed By: #### 1 [id number] #### [facility] [address] [place] [address] Ambulatory Visit Summaryon 0 04-25-2024 Ambulatory Visit Summary GARETH MENJIVAR :1950 Visit Date:04/25/2024 Ambulatory Visit Instructions Your Diagnosis HTN (hypertension) BMI 26.0-26.9,adult Overweight Nonsmoker Screening for skin cancer Acquired hypothyroidism Anxiety attack Your Care Team Attending Physician - Juani Bishop MD Primary Care Physician - Juani Bishop MD This Is Your Medications List escitalopram (Lexapro 10 mg Tab) Contact prescribing physician if questions or concerns allopurinol (allopurinol 300 mg Tab) amlodipine (amLODIPine 5 mg Tab) aspirin (Aspirin Low Dose 81 mg oral enteric coated tablet) atenolol (atenolol 50 mg Tab) atorvastatin (atorvastatin 40 mg Tab) lamotrigine (lamotrigine 100 mg Tab) levothyroxine (levothyroxine 75 mcg (0.075 mg) Tab) nitroglycerin (nitroglycerin 0.4 mg sublingual Tab) pantoprazole (Pantoprazole [address] Tab) sildenafil (sildenafil 100 mg Tab) ticagrelor (ticagrelor 90 mg oral tablet) valsartan (valsartan 80 mg Tab) [Image Removed: STOP]Stop taking these medications buPROPion (Wellbutrin XL 150 mg/24 hours Tab-ER) Procedures Performed Cardiac catheterization (01/15/2024), Colonoscopy (09/27/2023), Coronary artery stent (2015), Amputation of finger of left hand, Arthroscopy of wrist, Colonoscopy, Repair of umbilical hernia, Tonsillectomy. Discharge Vitals Temperature (Oral) 36.6 ?C Heart Rate (Peripheral) 68 Respiratory Rate 16 Blood Pressure 120/72 Height 171 cm Height 67 in Weight 77.9 kg Weight 171.38 lb BMI 26.64 What to do next Scheduled Follow-Up Appointments Monday 8:20 AM EDT With: Where: [facility] Invalid Interpretation Code [address] [place] [address]- \.br\ Monday 1:00 PM EST \.br\ With:\.br\ Where: [facility] Office/Clini c Noteon 04-25-2024 Family Medicine Office/Clinic Note HPI Staff Gareth is a 73 year old male presenting for 2 month follow up htn Patient is here for follow up on hypertension. How often are you checking your blood pressure? occasionally What are your average readings? normal _ Yearly BMP:08/25/23_ questions/concerns: check spot on right leg by ankle, just appeared and it's itchy History of Present Illness - See staff HPI. - Seen in the ER for an anxiety attack. - Pt not on meds outside of lamictal. - No other concerns. Review of Systems PHQ Score Initial Depression Screen Score: 0 SCORE Physical Exam Vitals & Measurements T: 36.6 ?C(Oral) HR: 68(Peripheral) RR: 16 BP: 120/72 SpO2: 99% HT: 67 in HT: 171 cm WT: 77.9 kg WT: 171.38 lb BMI: 26.64 General: alert, no acute distress ENMT: oral mucosa moist, Cardiovascular: regular rate and rhythm, normal peripheral perfusion Respiratory: Lungs CTA, respirations non labored Extremities: no deformity, no trauma, Erythematous circular rash at the base of his L leg. Possibly dips. Very itchy. Neurological: oriented x 4, LOC appropriate for age, CN II-XII intact, motor strength equal & normal bilaterally, speech normal Abdomen: Soft, Nontender, Non-distended, + BS Assessment/Plan 1. HTN (hypertension) (I10: Essential (primary) hypertension) - At goal today. - NO issues - Follow up with cardiology Ordered: tamsulosin, 0.4 mg = 1 cap(s), Oral, Daily, # 90 cap(s), Refills(s) 0, Pharmacy: [facility] #[id number], 166, cm, 08/25/23 8:58:00 EDT, Height/Length Dosing, 80, kg, 08/25/23 8:58:00 EDT, Weight Dosing Body Mass Index (BMI) documented 3008F CBC w/ Auto Diff Comprehensive Metabolic Panel Current tobacco non-user 1036F Depression Screening Negative 3352F Lipid Panel Most recent diastolic blood pressure <80 mm Hg 3078F Patient screen for fall risk: no falls in last year or 1 fall with no injury in last year 1101F PSA Screen, Total Systolic BP <130 mm Hg (Most Recent) 3074F TSH With T4fr Reflex 2. BMI 26.0-26.9,adult (Z68.26: Body mass index [BMI] 26.0-26.9, adult) - BMI education uploaded Ordered: Body Mass Index (BMI) documented 3008F CBC w/ Auto Diff Comprehensive Metabolic Panel Current tobacco non-user 1036F Depression Screening Negative 3352F Lipid Panel Most recent diastolic blood pressure <80 mm Hg 3078F Patient screen for fall risk: no falls in last year or 1 fall with no injury in last year 1101F PSA Screen, Total Systolic BP <130 mm Hg (Most Recent) 3074F TSH With T4fr Reflex 3. Overweight (E66.3: Overweight) - Diet and exercise advised Ordered: tamsulosin, 0.4 mg = 1 cap(s), Oral, Daily, # 90 cap(s), Refills(s) 0, Pharmacy: [facility] #[id number], 166, cm, 08/25/23 8:58:00 EDT, Height/Length Dosing, 80, kg, 08/25/23 8:58:00 EDT, Weight Dosing Body Mass Index (BMI) documented 3008F CBC w/ Auto Diff Comprehensive Metabolic Panel Current tobacco non-user 1036F Depression Screening Negative 3352F Lipid Panel Most recent diastolic blood pressure <80 mm Hg 3078F Patient screen for fall risk: no falls in last year or 1 fall with no injury in last year 1101F PSA Screen, Total Systolic BP <130 mm Hg (Most Recent) 3074F TSH With T4fr Reflex 4. Nonsmoker (Z78.9: Other specified health status) - Please continue to not smoke Ordered: Body Mass Index (BMI) documented 3008F CBC w/ Auto Diff Comprehensive Metabolic Panel Current tobacco non-user 1036F Depression Screening Negative 3352F Lipid Panel Most recent diastolic blood pressure <80 mm Hg 3078F Patient screen for fall risk: no falls in last year or 1 fall with no injury in last year 1101F PSA Screen, Total Systolic BP <130 mm Hg (Most Recent) 3074F TSH With T4fr Reflex 5. Screening for skin cancer (Z12.83: Encounter for screening for malignant neoplasm of skin) - Pt should have derm do a skin check on the patient. - Unsure what the spot on his legs are from. Ordered: CBC w/ Auto Diff Comprehensive Metabolic Panel Lipid Panel PSA Screen, Total TSH With T4fr Reflex 6. Acquired hypothyroidism (E03.9: Hypothyroidism, unspecified) - Will check labs - Adjust meds as needed - Follow up PRN Ordered: tamsulosin, 0.4 mg = 1 cap(s), Oral, Daily, # 90 cap(s), Refills(s) 0, Pharmacy: [facility] #[id number], 166, cm, 08/25/23 8:58:00 EDT, Height/Length Dosing, 80, kg, 08/25/23 8:58:00 EDT, Weight Dosing CBC w/ Auto Diff Comprehensive Metabolic Panel Lipid Panel PSA Screen, Total TSH With T4fr Reflex 7. Anxiety attack (F41.0: Panic disorder [episodic paroxysmal anxiety]) - Seen in the ER. - Stopped his wellbutrin. - Will add Lexapro. - Pt to call if its working. Ordered: CBC w/ Auto Diff Comprehensive Metabolic Panel Lipid Panel PSA Screen, Total TSH With T4fr Reflex 8. Screening PSA (prostate specific antigen) (Z12.5: Encounter for screening for malignant neoplasm of prostate) Ordered: CBC w/ Auto Diff Comprehensive Met (more content not included)... Normal [facility] Comment on above: Result Comment: Elec tronically Signed By: Fransisco DAMON, Juani Watts.hansel\Date and Time Signed: 04/25/24 09:56 EDT ED Note-Physicianon 04-11-20 ED Note-Physician [id number] #1.00TIFF Normal [facility] Activated partial thrombopla stin time (aPTT) in platelet poor plasma by coagulation aOrdered By: Aníbal Nelson on 04-10-2024 aPTT Coag (PPP) [Time] 27.2 s 25.1-36.5 [facility] Comment on above: A hematocrit value g reater than 55% may lead to inaccurate results in coagulation testing. Patients having hematocrit values >55% require a special collection tube for coagulation studies. Please contact the laboratory at [phone] for redraw instructions. Alanine aminotransferase [En zymatic activity/volume] in Serum or PlasmaOrdered By: Aníbal Nelson on 04-10-2024 ALT [Catalytic activity/Vol] 25 U/L Normal 7-52 [facility] Comment on above: Performed By: #### C MP, BNP, PT, HS TROP, PTT, DIFF CBC, CK #### [facility] [address] [place] [address] [place] Albumin [Mass/volume] in Ser um or Plasma by Bromocresol green (BCG) dye binding methoOrdered By: Aníbal Nelson on 04-10-2024 Albumin BCG dye [Mass/Vol] 5.0 g/dL 3.5-5.7 [facility] Alkaline phosphatase [Enzyma tic activity/volume] in Serum or PlasmaOrdered By: Aníbal Nelson on 04-10-2024 ALP [Catalytic activity/Vol] 72 U/L Normal 34-104 [facility] Comment on above: Performed By: #### C MP, BNP, PT, HS TROP, PTT, DIFF CBC, CK #### [facility] [address] [place] [id number] [place] Aspartate aminotransferase [ Enzymatic activity/volume] in Serum or PlasmaOrdered By: Aníbal Nelson on 04-10-2024 AST [Catalytic activity/Vol] 24 U/L Normal 13-39 [facility] Comment on above: Performed By: #### C MP, BNP, PT, HS TROP, PTT, DIFF CBC, CK #### [address] BNP ser/plasOrdered By: Aníbal Nelson on 04-10-2024 Natriuretic peptide B (Bld) [Mass/Vol] 45.0 pg/mL Normal 5-100 [facility] Comment on above: Result Comment: PERF ORMED BY: [place] [address] PATHOLOGIST AUTOMOTIVE [employer]LLISION REPAIR INSTRUCTOR MELITON MCKAY M.D. Performed By: #### C MP, BNP, PT, HS TROP, PTT, DIFF CBC, CK #### [address] Bilirubin.total [Mass/volume ] in Serum or PlasmaOrdered By: Aníbal Nelson on 04-10-2024 Bilirubin [Mass/Vol] 1.3 mg/dL High 0.3-1.0 [facility] Comment on above: Samples from patient s who have taken Naproxen have shown spurious elevation in Total Bilirubin levels. A metabolite of Naproxen, O-desmethylnaproxen, has been shown to interfere with the Jendrassik-Grof method for measuring Total Bilirubin. Result Comment: Samp les from patients who have taken Naproxen have shown spurious elevation in Total Bilirubin levels. A metabolite of Naproxen, O-desmethylnaproxen, has been shown to interfere with the Jendrassik-Grof method for measuring Total Bilirubin. Performed By: #### C MP, BNP, PT, HS TROP, PTT, DIFF CBC, CK #### [address] Calcium [Mass/volume] in Ser um or PlasmaOrdered By: Aníbal Nelson on 04-10-2024 Calcium [Mass/Vol] 9.5 mg/dL Normal 8.6-10.[address] [facility] Comment on above: Performed By: #### C MP, BNP, PT, HS TROP, PTT, DIFF CBC, CK #### [address] Carbon dioxide, total [Moles /volume] in Serum or PlasmaOrdered By: Aníbal Nelson on 04-10-2024 CO2 [Moles/Vol] 24.9 mmol/L Normal 21.0-31.0 [facility] Comment on above: Performed By: #### C MP, BNP, PT, HS TROP, PTT, DIFF CBC, CK #### [facility] [address] Chloride [Moles/volume] in S janis or PlasmaOrdered By: Aníbal Nelson on 04-10-2024 Chloride [Moles/Vol] 95 mmol/L Low 98-107 [facility] [facility] Comment on above: Performed By: #### C MP, BNP, PT, HS TROP, PTT, DIFF CBC, CK #### [address] Comprehensive Metabolic Pane beronica 04-10-2024 Albumin [Mass/Vol] 5.0 g/dL Normal 3.5-5.7 [facility] Comment on above: Performed By: #### C MP, BNP, PT, HS TROP, PTT, DIFF CBC, CK #### [facility] [address] Creatinine Clr Calc Pharmacy 67.39 Normal [facility] Comment on above: Result Comment: PERF ORMED BY: [place] [address] PATHOLOGIST AUTOMOTIVE COLLISION REPAIR INSTRUCTOR MELITON MCKAY M.D. Performed By: #### C MP, BNP, PT, HS TROP, PTT, DIFF CBC, CK #### [address] GFR/1.73 sq M.predicted MDRD (S/P/Bld) [Vol rate/Area] mL/min/{1.73_m2} Normal [facility] Comment on above: Performed By: #### C MP, BNP, PT, HS TROP, PTT, DIFF CBC, CK #### [facility] [address] Creatine kinase [Enzymatic a ctivity/volume] in Serum or PlasmaOrdered By: Aníbal Nelson on 04-10-2024 CK [Catalytic activity/Vol] 63 U/L Normal 30-223 [facility] Comment on above: Performed By: #### C MP, BNP, PT, HS TROP, PTT, DIFF CBC, CK #### [address] Creatinine [Mass/volume] in Serum or PlasmaOrdered By: Aníbal Nelson on 04-10-2024 Creatinine [Mass/Vol] 0.94 mg/dL Normal 0.70-1.30 [facility] Comment on above: Performed By: #### C MP, BNP, PT, HS TROP, PTT, DIFF CBC, CK #### [address] Diff and CBCon 04-10-2024 Acanthocytes Slight Normal [facility] Comment on above: Performed By: #### C MP, BNP, PT, HS TROP, PTT, DIFF CBC, CK #### [address] Anisocytosis Ql (Bld) Slight Normal [facility] Comment on above: Performed By: #### C MP, BNP, PT, HS TROP, PTT, DIFF CBC, CK #### [address] Giant Platelet Tally 2 /100{WBC} Normal [facility] Comment on above: Performed By: #### C MP, BNP, PT, HS TROP, PTT, DIFF CBC, CK #### [address] Lymphocytes/100 WBC (Bld) 23 % Normal 18-42 [facility] Comment on above: Performed By: #### C MP, BNP, PT, HS TROP, PTT, DIFF CBC, CK #### [place] [address] [place] Mean Corpuscular HGB Conc 33.3 g/dL Normal 32.5-35.6 [facility] Comment on above: Performed By: #### C MP, BNP, PT, HS TROP, PTT, DIFF CBC, CK #### [place] [address] [place] Microcytosis Slight Normal [facility] Comment on above: Performed By: #### C MP, BNP, PT, HS TROP, PTT, DIFF CBC, CK #### [address] Monocytes/100 WBC (Bld) 21.72 % High 0.00-20.00 [facility] Comment on above: Result Comment: For adults in ED, MDW > 20.0 may be associated with a higher risk of sepsis during the first 12 hrs of hospital admission Performed By: #### C MP, BNP, PT, HS TROP, PTT, DIFF CBC, CK #### [address] Monocytes/100 WBC (Bld) 8 % Normal 2-11 [facility] Comment on above: Performed By: #### C MP, BNP, PT, HS TROP, PTT, DIFF CBC, CK #### [address] Ovalocytes Slight Normal [facility] Comment on above: Performed By: #### C MP, BNP, PT, HS TROP, PTT, DIFF CBC, CK #### [address] Platelet Estimate Normal Normal Normal [facility] Comment on above: Performed By: #### C MP, BNP, PT, HS TROP, PTT, DIFF CBC, CK #### [address] Platelet Morphology Normal Normal Normal [facility] Comment on above: Result Comment: PERF ORMED BY: [place] [address] PATHOLOGIST AUTOMOTIVE [employer]LLISION REPAIR INSTRUCTOR MELITON MCKAY M.D. Performed By: #### C MP, BNP, PT, HS TROP, PTT, DIFF CBC, CK #### [address] Polychromasia Slight Normal [facility] Comment on above: Performed By: #### C MP, BNP, PT, HS TROP, PTT, DIFF CBC, CK #### [address] Schistocytes Slight Normal [facility] Comment on above: Performed By: #### C MP, BNP, PT, HS TROP, PTT, DIFF CBC, CK #### [address] Segmented neutrophils/100 WBC (Bld) 69 % Normal 50-70 [facility] Comment on above: Performed By: #### C MP, BNP, PT, HS TROP, PTT, DIFF CBC, CK #### [address] ECG 12 lead ECGon 04-10-2024 ECG 12 lead ECG [facility] Main [place] [address] [place] [address] Electrocardiograph Report Signed Patient: Gareth Menjivar MR#: [id number] : 1950 Acct:[id number] Age/Sex: 73 / M ADM Date: 04/10/24 Loc: ER Room: Type: [facility] ER Attending Dr: Ordering Provider: Tamanna Mujica APRN Date of Service: 04/10/24 ECG/ECG 12 lead ECG: Chest Pain Copies to: Test Reason : Blood Pressure : 184/076 mmHG Vent. Rate : 063 BPM Atrial Rate : 063 BPM P-R Int : 228 ms QRS Dur : 076 ms QT Int : 426 ms P-R-T Axes : 084 036 058 degrees QTc Int : 435 ms Sinus rhythm with 1st degree AV block Otherwise normal ECG When compared with ECG of 15-JAN-2024 12:53, No significant change was found Confirmed by ANÍBAL NELSON MD ([id number]) on 04/10/2024 5:46:05 PM Referred By: Electronically Signed By:ANÍBAL NELSON MD Transcribed By: MUS Signed By Aníbal Nelson MD 04/10/24 1746 Normal [facility] Erythrocyte distribution wid th [Ratio] by Automated countOrdered By: Aníbal Nelson on 04-10-2024 Erythrocyte distribution width (RBC) [Ratio] 13.4 % Normal 12.0-14.8 [facility] Comment on above: Performed By: #### C MP, BNP, PT, HS TROP, PTT, DIFF CBC, CK #### [address] Erythrocytes [#/volume] in B lood by Automated countOrdered By: Aníbal Nelson on 04-10-2024 RBC (Bld) [#/Vol] 3.95 10*6/uL Normal 3.90-5.60 [facility] Comment on above: Performed By: #### C MP, BNP, PT, HS TROP, PTT, DIFF CBC, CK #### [facility] [address] Glucose [Mass/volume] in Ser um or PlasmaOrdered By: Aníbal Nelson on 04-10-2024 Glucose [Mass/Vol] 94 mg/dL Normal 70-[address] [facility] Comment on above: ADA recommended refe rence rangeRandom Glucose Reference Range is dependent on time and content of last meal. Glucose of more than 200 mg/dL in a nonstressed, ambulatory subject supports the diagnosis of Diabetes Mellitus. Result Comment: [place] om Glucose Reference Range is dependent on time and content of last meal. Glucose of more than 200 mg/dL in a nonstressed, ambulatory subject supports the diagnosis of Diabetes Mellitus. ADA recommended reference range Performed By: #### C MP, BNP, PT, HS TROP, PTT, DIFF CBC, CK #### [facility] [address] Hematocrit [Volume Fraction] of Blood by Automated countOrdered By: Aníbal Nelson on 04-10-2024 Hematocrit (Bld) [Volume fraction] 36.4 % Low 38.8-50.0 [facility] Comment on above: Performed By: #### C MP, BNP, PT, HS TROP, PTT, DIFF CBC, CK #### [facility] [address] [place] [address] [place] Hemoglobin [Mass/volume] in BloodOrdered By: Aníbal Nelson on 04-10-2024 Hemoglobin (Bld) [Mass/Vol] 12.1 g/dL Low 13.0-17.0 [facility] Comment on above: Performed By: #### C MP, BNP, PT, HS TROP, PTT, DIFF CBC, CK #### [facility] [address] [place] [address] [place] INR in Platelet poor plasma by Coagulation assayOrdered By: Aníbal Nelson on 04-10-2024 INR Coag (PPP) [Relative time] 1.0 {INR} Normal [facility] Comment on above: INR Therapeutic Rang e A) Pre- and Peroperative OAT started two weeks before surgery. NOT HIP SURGERY: 1.5 - 2.5 HIP SURGERY: 2 - 3B) Primary and secondary prevention of venous THROMBOSIS: 2 - 3C) Active venous thrombosis, pulmonary embolismand prevention of recurrent venous thrombosis: 2 - 3D) Prevention of arterial thromboembolismincluding patients with mechanical heart valves: 3 - 4.5 Result Comment: INR Therapeutic Range A) Pre- and Peroperative OAT started two weeks before surgery. NOT HIP SURGERY: 1.5 - 2.5 HIP SURGERY: 2 - 3 B) Primary and secondary prevention of venous THROMBOSIS: 2 - 3 C) Active venous thrombosis, pulmonary embolism and prevention of recurrent venous thrombosis: 2 - 3 D) Prevention of arterial thromboembolism including patients with mechanical heart valves: 3 - 4.5 Performed By: #### C MP, BNP, PT, HS TROP, PTT, DIFF CBC, CK #### [facility] [address] Leukocytes [#/volume] correc rosie for nucleated erythrocytes in Blood by Automated counOrdered By: Aníbal Nelson on 04-10-2024 WBC corrected for nucl RBC Auto (Bld) [#/Vol] 5.5 10*3/uL 4.1-10.5 [facility] Leukocytes [#/volume] in Blo od by Automated countOrdered By: Aníbal Nelson on 04-10-2024 WBC (Bld) [#/Vol] 5.5 10*3/uL Normal 4.1-10.[address] [facility] Comment on above: Performed By: #### C MP, BNP, PT, HS TROP, PTT, DIFF CBC, CK #### [facility] [address] MCH [Entitic mass] by Automa rosie countOrdered By: Aníbal Nelson on 04-10-2024 MCH (RBC) [Entitic mass] 30.7 pg Normal 27.5-35.2 [facility] Comment on above: Performed By: #### C MP, BNP, PT, HS TROP, PTT, DIFF CBC, CK #### [facility] [address] MCHC Auto (RBC) [Mass/Vol]Or dered By: Aníbal Nelson on 04-10-2024 MCHC (RBC) [Mass/Vol] 33.3 g/dL 32.5-35.6 [facility] MCV [Entitic volume] by Auto mated countOrdered By: Aníbal Nelson on 04-10-2024 MCV (RBC) [Entitic vol] 92.2 fL Normal 83.5-101 [facility] Comment on above: Performed By: #### C MP, BNP, PT, HS TROP, PTT, DIFF CBC, CK #### [facility] [address] No Panel InformationOrdered By: Aníbal Nelson on 04-10-2024 Estimated GFR (CKD-EPI) > 60.0 mL/Min [facility] Creatinine Clearance (Chem 67.39 [facility] Partial Thromboplastin Timeo n 04-10-2024 aPTT Coag (Bld) [Time] 27.2 s Normal 25.1-36.5 [facility] Comment on above: Result Comment: A he matocrit value greater than 55% may lead to inaccurate results in coagulation testing. Patients having hematocrit values >55% require a special collection tube for coagulation studies. Please contact the laboratory at [phone] for redraw instructions. PERFORMED BY: [place] [address] PATHOLOGIST AUTOMOTIVE COLLISION REPAIR INSTRUCTOR MELITON MCKAY M.D. Performed By: #### C MP, BNP, PT, HS TROP, PTT, DIFF CBC, CK #### [facility] [address] [place] [id number] [facility] Platelet mean volume [Entiti c volume] in Blood by Automated countOrdered By: Aníbal Nelson on 04-10-2024 Platelet mean volume (Bld) [Entitic vol] 8.3 fL Normal 6.6-10.1 [facility] Comment on above: Result Comment: PERF ORMED BY: [place] [id number] PATHOLOGIST AUTOMOTIVE COLLISION REPAIR INSTRUCTOR MELITON MCKAY M.D. Performed By: #### C MP, BNP, PT, HS TROP, PTT, DIFF CBC, CK #### [facility] [address] Platelets [#/volume] in Bloo d by Automated countOrdered By: Aníbal Nelson on 04-10-2024 Platelets (Bld) [#/Vol] 237 10*3/uL Normal 150-450 [facility] Comment on above: Performed By: #### C MP, BNP, PT, HS TROP, PTT, DIFF CBC, CK #### [facility] [address] Potassium [Moles/volume] in Serum or PlasmaOrdered By: Aníbal Nelson on 04-10-2024 Potassium [Moles/Vol] 4.5 mmol/L Normal 3.5-5.1 [facility] Comment on above: Performed By: #### C MP, BNP, PT, HS TROP, PTT, DIFF CBC, CK #### [address] Protein [Mass/volume] in Ser um or PlasmaOrdered By: Aníbal Nelson on 04-10-2024 Protein [Mass/Vol] 7.1 g/dL Normal 6.4-8.[address] [facility] Comment on above: Performed By: #### C MP, BNP, PT, HS TROP, PTT, DIFF CBC, CK #### [address] Prothrombin time (PT)Ordered By: Aníbal Nelson on 04-10-2024 PT Coag (PPP) [Time] 11.6 s Normal 9.0-12.9 [facility] Comment on above: A hematocrit value g reater than 55% may lead to inaccurate results in coagulation testing. Patients having hematocrit values >55% require a special collection tube for coagulation studies. Please contact the laboratory at [phone] for redraw instructions. Result Comment: A he matocrit value greater than 55% may lead to inaccurate results in coagulation testing. Patients having hematocrit values >55% require a special collection tube for coagulation studies. Please contact the laboratory at [phone] for redraw instructions. Performed By: #### C MP, BNP, PT, HS TROP, PTT, DIFF CBC, CK #### [address] Serum globulin measurement b y calculation (mass/volume)Ordered By: Aníbal Nelson on 04-10-2024 Globulin (S) [Mass/Vol] 2.1 g/dL [facility] Comment on above: Performed By: #### C MP, BNP, PT, HS TROP, PTT, DIFF CBC, CK #### [address] Serum or plasma albumin/glob ulin mass ratioOrdered By: Aníbal Nelson on 04-10-2024 Albumin/Globulin [Mass ratio] 2.4 {ratio} [facility] Comment on above: Performed By: #### C MP, BNP, PT, HS TROP, PTT, DIFF CBC, CK #### [address] Serum or plasma anion gap de terminationOrdered By: Aníbal Nelson on 04-10-2024 Anion gap [Moles/Vol] 11.6 mmol/L Normal 6.0-15.0 [facility] Comment on above: Performed By: #### C MP, BNP, PT, HS TROP, PTT, DIFF CBC, CK #### [address] Sodium [Moles/volume] in Ser um or PlasmaOrdered By: Aníbal Nelson on 04-10-2024 Sodium [Moles/Vol] 127 mmol/L Low 136-[address] [facility] Comment on above: Performed By: #### C MP, BNP, PT, HS TROP, PTT, DIFF CBC, CK #### [address] Troponin I High Sensitivityo n 04-10-2024 Troponin I High Sensitivity < 2.3 Normal 0.0-20.0 [facility] Comment on above: Result Comment: PERF ORMED BY: [place] [address] PATHOLOGIST AUTOMOTIVE COLLISION REPAIR INSTRUCTOR MELITON MCKAY M.D. Performed By: #### C MP, BNP, PT, HS TROP, PTT, DIFF CBC, CK #### [facility] [address] Troponin I.cardiac [Mass/vol ume] in Serum or Plasma by Detection limit <= 0.01 ng/Ordered By: Aníbal Nelson on 04-10-2024 Troponin I.cardiac DL <= 0.01 ng/mL [Mass/Vol] < 2.3 pg/mL 0.0-20.0 [facility] Urea nitrogen [Mass/volume] in Serum or PlasmaOrdered By: Aníbal Nelson on 04-10-2024 Urea nitrogen [Mass/Vol] 13 mg/dL Normal 7-25 [facility] Comment on above: Performed By: #### C MP, BNP, PT, HS TROP, PTT, DIFF CBC, CK #### [facility] [address] XR chest 1V portableon 04-10 XR chest 1V portable [facility] Main [place] [address] [place] [address] XRay Report Signed Patient: Gareth Menjivar MR#: [id number] : 1950 Acct:[id number] Age/Sex: 73 / M ADM Date: 04/10/24 Loc: ER Room: Type: [facility] ER Attending Dr: Copies to: Aníbal Nelson MD Ordering Provider: Aníbal Nelson MD Date of Service: 04/10/24 XR/XR chest 1V portable: Chest Pain PORTABLE AP ERECT CHEST 1518 hours CLINICAL HISTORY: Midsternal chest pain, dizziness and heartburn. Hypertension. COMPARISON: None The heart is within normal limits. There is no vascular congestion. The lungs, as visualized, are clear. There is no effusion or pneumothorax. The osseous structures are intact. There is slight levoscoliotic curvature and endplate spurring spine. XR/XR chest 1V portable IMPRESSION: NO ACUTE FINDINGS Impression dictated by: Mireya Leger M.D.04/10/2024 1:35 PM Dictation Location: [place] [address] Transcribed By: [facility] 04/10/24 133 Dictated By: Mireya Leger MD 04/10/24 1333 Signed By: 04/10/24 1335 Normal [facility] Ambulatory Visit Summaryon 0 02-22-2024 Ambulatory Visit Summary GARETH MENJIVAR :1950 Visit Date:02/22/2024 Ambulatory Visit Instructions Your Diagnosis HTN (hypertension) Hypothyroid BMI 27.0-27.9,adult Over weight Nonsmoker Anxiety attack CAD in [place] artery Your Care Team Attending Physician - Juani Bishop MD Primary Care Physician - Juani Bishop MD This Is Your Medications List allopurinol (allopurinol 300 mg Tab) amlodipine (amLODIPine 5 mg Tab) aspirin (Aspirin Low Dose 81 mg oral enteric coated tablet) atenolol (atenolol 50 mg Tab) atorvastatin (atorvastatin 40 mg Tab) clopidogrel (clopidogrel 75 mg Tab) lamotrigine (lamotrigine 100 mg Tab) levothyroxine (levothyroxine 75 mcg (0.075 mg) Tab) lorazepam (LORazepam 0.5 mg Tab) nitroglycerin (nitroglycerin 0.4 mg sublingual Tab) pantoprazole (Pantoprazole [address] Tab) sildenafil (sildenafil 100 mg Tab) tamsulosin (Flomax 0.4 mg Cap) valsartan (valsartan 80 mg Tab) Procedures Performed Cardiac catheterization (01/15/2024), Colonoscopy (09/27/2023), Coronary artery stent (2015), Amputation of finger of left hand, Arthroscopy of wrist, Colonoscopy, Repair of umbilical hernia, Tonsillectomy. Discharge Vitals Temperature (Oral) 36.6 ?C Heart Rate (Peripheral) 72 Respiratory Rate 16 Blood Pressure 128/74 Height 171 cm Height 67 in Weight 80.5 kg Weight 177.1 lb BMI 27.53 What to do next Scheduled Follow-Up Appointments 2023 9:30 AM EDT With: Juani Bishop MD Where: [facility] [place] Normal [address] [place] [address]- \.br\ Medications\.br\ What How Much When Why Instructions\.br\ Unchanged allopurinol (allopurinol 300 mg Tab) 1 Tablets By Mouth Every day\.br\ Unchanged amlodipine (amLODIPine 5 mg Tab) 1 Tablets By Mouth Every day\.br\ Unchanged aspirin (Aspirin Low Dose 81 mg oral enteric coated tablet) TAKE 1 TABLET BY MOUTH DAILY \.br\ Unchanged atenolol (atenolol 50 mg Tab) 1 Tablets By Mouth Every day\.br\ Unchanged atorvastatin (atorvastatin 40 mg Tab) 1 Tablets By Mouth Every day\.br\ Unchanged clopidogrel (clopidogrel 75 mg Tab) 1 Tablets By Mouth Every day\.br\ Unchanged lamotrigine (lamotrigine 100 mg Tab) 1 Tablets By Mouth Every day\.br\ Unchanged levothyroxine (levothyroxine 75 mcg (0.075 mg) Tab) 1 Tablets By Mouth Every day\.br\ Unchanged lorazepam (LORazepam 0.5 mg Tab) 1 Tablets By Mouth 2 times a day\.br\ Unchanged nitroglycerin (nitroglycerin 0.4 mg sublingual Tab) 1 Tablets Sublingual Every 5 minutes as needed for for chest pain\.br\ Unchanged pantoprazole (Pantoprazole [address] Tab) TAKE 1 TABLET BY MOUTH 30 MINUTES BEFORE A MEAL \.br\ Unchanged sildenafil (sildenafil 100 mg Tab) 1 Tablets By Mouth Every day as needed for for erectile dysfunction\.br\ Unchanged tamsulosin (Flomax 0.4 mg Cap) 1 Capsules By Mouth Every day BPH with urinary obstruction Constipation HTN (hypertension) Gout GERD without esophagitis ED (erectile dysfunction) Hypothyroid Body mass index (BMI) of 29.0-29.9 in adult Overweight\.br\ Unchanged valsartan (valsartan 80 mg Tab) 1 Tablets By Mouth Every day\.br\ Allergies\.br\ No Known Allergies\.br\ No Known Medication Allergies\.br\ Problems\.br\ Ongoing - Any problem that you are currently receiving treatment for.\.br\ Anxiety attack\.br\ Benign neoplasm of sigmoid colon\.br\ Body mass index (BMI) of 29.0-29.9 in adult\.br\ BPH with urinary obstruction\.br\ CAD in [place] artery\.br\ Constipation\.br\ ED (erectile dysfunction)\.br\ GERD without esophagitis\.br\ Gout\.br\ HTN (hypertension)\.br\ Hypothyroid\.br\ Overweight\.br\ Screening for skin cancer\.br\ Sigmoid diverticulosis\.br\ Testicular pain\.br\ Patient Survey\.br\ You may receive a survey via text or e-mail asking about your office visit. Please share your experience with us by completing your survey. We appreciate your feedback and thank you for choosing us for your care.\.br\ \.br\ [facility] Medicine Office/Clini c Noteon 02-22-2024 Family Medicine Office/Clinic Note HPI Staff Servin is a 73 year old male presenting for 6 month follow up htn, thyroid Patient is here for follow up on hypertension. How often are you checking your blood pressure? hasn't recently checked it What are your average readings? week after the stents was perfect Yearly BMP: 08/25/23 Patient is here for follow up on Thyroid Disease. Do you have any of the following symptoms? Change in energy level? no Weight change? no Heat/cold intolerance? yes on blood thinners gets cold easier Hair/skin/nail changes? no Change in bowels? no Last TSH: TSH: 1.15 mcIU/mL (08/25/23 09:47:00) questions/concerns: wants to discuss the lorazepam, had in past from Dr Bhatia but with recent stents anxiety is flared. 2 stents placed January 14, Bertha Hogue is his canvas goods supervisor who did the cath, Red did the stents RAMOS: 14 History of Present Illness Here for follow up. - Two stents placed - Plavix was added. - Pt had a hx of 3 stents placed 8 years ago. - NO CP today. - Has some anxiety because of this. Review of Systems PHQ Score Initial Depression Screen Score: 0 SCORE Physical Exam Vitals & Measurements T: 36.6 ?C(Oral) HR: 72(Peripheral) RR: 16 BP: 128/74 SpO2: 97% HT: 67 in HT: 171 cm WT: 80.5 kg WT: 177.1 lb BMI: 27.53 General: alert, no acute distress ENMT: oral mucosa moist, Cardiovascular: regular rate and rhythm, normal peripheral perfusion Respiratory: CTABL, respirations non labored Extremities: no deformity, no trauma Neurological: oriented x 4, LOC appropriate for age, CN II-XII intact, motor strength equal & normal bilaterally, speech normal Abdomen: Soft, Nontender, Non-distended, + BS Assessment/Plan 1. HTN (hypertension) (I10: Essential (primary) hypertension) - Well controlled - No issues - Continue on meds as before. Ordered: Body Mass Index (BMI) documented 3008F Current tobacco non-user 1036F Depression Screening Negative 3352F Influenza immunization status assessed 1030F Most recent diastolic blood pressure <80 mm Hg 3078F Patient screen for fall risk: no falls in last year or 1 fall with no injury in last year 1101F Systolic BP <130 mm Hg (Most Recent) 3074F 2. Hypothyroid (E03.9: Hypothyroidism, unspecified) - Well controlled Ordered: Body Mass Index (BMI) documented 3008F Current tobacco non-user 1036F Depression Screening Negative 3352F Influenza immunization status assessed 1030F Most recent diastolic blood pressure <80 mm Hg 3078F Patient screen for fall risk: no falls in last year or 1 fall with no injury in last year 1101F Systolic BP <130 mm Hg (Most Recent) 3074F 3. BMI 27.0-27.9,adult (Z68.27: Body mass index [BMI] 27.0-27.9, adult) - BMI education given Ordered: Body Mass Index (BMI) documented 3008F Current tobacco non-user 1036F Depression Screening Negative 3352F Influenza immunization status assessed 1030F Most recent diastolic blood pressure <80 mm Hg 3078F Patient screen for fall risk: no falls in last year or 1 fall with no injury in last year 1101F Systolic BP <130 mm Hg (Most Recent) 3074F 4. Over weight (E66.3: Overweight) - Diet and exercise advised. Ordered: Body Mass Index (BMI) documented 3008F Current tobacco non-user 1036F Depression Screening Negative 3352F Influenza immunization status assessed 1030F Most recent diastolic blood pressure <80 mm Hg 3078F Patient screen for fall risk: no falls in last year or 1 fall with no injury in last year 1101F Systolic BP <130 mm Hg (Most Recent) 3074F 5. Nonsmoker (Z78.9: Other specified health status) - Please continue to not smoke. Ordered: Body Mass Index (BMI) documented 3008F Current tobacco non-user 1036F Depression Screening Negative 3352F Influenza immunization status assessed 1030F Most recent diastolic blood pressure <80 mm Hg 3078F Patient screen for fall risk: no falls in last year or 1 fall with no injury in last year 1101F Systolic BP <130 mm Hg (Most Recent) 3074F 6. Anxiety attack (F41.0: Panic disorder [episodic paroxysmal anxiety]) - Will start Wellbutrin 7. 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 Normal [facility] Comment on above: Result Comment: Elec tronically Signed By: Fransisco DAMON, Juani Sorto\.br\Date and Time Signed: 02/22/24 09:57 EDT Patient Educationon 02-22-20 24 Patient Education Nutrition BMI for Adults What is BMI? Body mass index (BMI) is a number that is calculated from a person's weight and height. BMI can help estimate how much of a person's weight is composed of fat. BMI does not measure body fat directly. Rather, it is an alternative to procedures that directly measure body fat, which can be difficult and expensive. BMI can help identify people who may be at higher risk for certain medical problems. What are BMI measurements used for? BMI is used as a screening tool to identify possible weight problems. It helps determine whether a person is obese, overweight, a healthy weight, or underweight. BMI is useful for: ? Identifying a weight problem that may be related to a medical condition or may increase the risk for medical problems. ? Promoting changes, such as changes in diet and exercise, to help reach a healthy weight. BMI screening can be repeated to see if these changes are working. How is BMI calculated? BMI involves measuring your weight in relation to your height. Both height and weight are measured, and the BMI is calculated from those numbers. This can be done either in [place] or metric measurements. Note that charts and online BMI calculators are available to help you find your BMI quickly and easily without having to do these calculations yourself. To calculate your BMI in [place] measurements: 1. Measure your weight in pounds (lb). 2. Multiply the number of pounds by 703. ? For example, for a person who weighs 180 lb, multiply that number by 703, which equals 126,540. 3. Measure your height in inches. Then multiply that number by itself to get a measurement called inches squared. ? For example, for a person who is 70 inches tall, the inches squared measurement is 70 inches x 70 inches, which equals 4,900 inches squared. 4. Divide the total from step 2 (number of lb x 703) by the total from step 3 (inches squared): 126,540 ? 4,900 = 25.8. This is your BMI. To calculate your BMI in metric measurements: 1. Measure your weight in kilograms (kg). 2. Measure your height in meters (m). Then multiply that number by itself to get a measurement called meters squared. ? For example, for a person who is 1.75 m tall, the meters squared measurement is 1.75 m x 1.75 m, which is equal to 3.1 meters squared. 3. Divide the number of kilograms (your weight) by the meters squared number. In this example: 70 ? 3.1 = 22.6. This is your BMI. What do the results mean? BMI charts are used to identify whether you are underweight, normal weight, overweight, or obese. The following guidelines will be used: ? Underweight: BMI less than 18.5. ? Normal weight: BMI between 18.5 and 24.9. ? Overweight: BMI between 25 and 29.9. ? Obese: BMI of 30 or above. Keep these notes in mind: ? Weight includes both fat and muscle, so someone with a muscular build, such as an athlete, may have a BMI that is higher than 24.9. In cases like these, BMI is not an accurate measure of body fat. ? To determine if excess body fat is the cause of a BMI of 25 or higher, further assessments may need to be done by a health care provider. ? BMI is usually interpreted in the same way for men and women. Where to find more information For more information about BMI, including tools to quickly calculate your BMI, go to these websites: ? Centers for Disease Control and Prevention: www.cdc.gov ? [place] [employer]: www.heart.org ? National Heart, Lung, and Blood [place]: www.nhlbi.nih.gov Summary ? Body mass index (BMI) is a number that is calculated from a person's weight and height. ? BMI may help estimate how much of a person's weight is composed of fat. BMI can help identify those who may be at higher risk for certain medical problems. ? BMI can be measured using Pryde[place] measurements or metric measurements. ? BMI charts are used to identify whether you are underweight, normal weight, overweight, or obese. This information is not intended to replace advice given to you by your health care provider. Make sure you discuss any questions you have with your health care provider. Document Revised: 07/22/2020 Document Reviewed: 05/29/2020 [employer] Patient Education ? 2022 [employer] Normal [facility] Activated partial thrombopla stin time (aPTT) in platelet poor plasma by coagulation aOrdered By: Karan Hernandes on 01-15-2024 aPTT Coag (PPP) [Time] 29.2 s 25.1-36.5 [facility] Comment on above: A hematocrit value g reater than 55% may lead to inaccurate results in coagulation testing. Patients having hematocrit values >55% require a special collection tube for coagulation studies. Please contact the laboratory at [phone] for redraw instructions. Automated basophil %Ordered By: Karan Hernandes on 01-15-2024 Basophils/100 WBC (Bld) 0.4 % Normal . [facility] Comment on above: Performed By: #### B UN, PP, CBC, CREAT, LIPID, LYTES #### [address] Automated basophil countOrde red By: Karan Hernandes on 01-15-2024 Basophils (Bld) [#/Vol] 0.0 10*3/uL Normal 0.0-0.2 [facility] Comment on above: Result Comment: PERF ORMED BY: [place] [address] PATHOLOGIST AUTOMOTIVE COLLISION REPAIR INSTRUCTOR MELITON MCKAY M.D. Performed By: #### B UN, PP, CBC, CREAT, LIPID, LYTES #### [address] Automated blood monocyte cou ntOrdered By: Karan Hernandes on 01-15-2024 Monocytes (Bld) [#/Vol] 0.3 10*3/uL Normal 0.0-0.8 [facility] Comment on above: Performed By: #### B UN, PP, CBC, CREAT, LIPID, LYTES #### [address] Automated eosinophil %Ordere d By: Karan Hernandes on 01-15-2024 Eosinophils/100 WBC (Bld) 0.8 % Normal . [facility] Comment on above: Performed By: #### B UN, PP, CBC, CREAT, LIPID, LYTES #### [address] Automated eosinophil countOr dered By: Karan Hernandes on 01-15-2024 Eosinophils (Bld) [#/Vol] 0.0 10*3/uL Normal 0.0-0.45 [facility] Comment on above: Performed By: #### B UN, PP, CBC, CREAT, LIPID, LYTES #### [address] Automated monocyte %Ordered By: Karan Hernandes on 01-15-2024 Monocytes/100 WBC (Bld) 8.3 % Normal . [facility] Comment on above: Performed By: #### B UN, PP, CBC, CREAT, LIPID, LYTES #### [address] Automated neutrophil %Ordere d By: Karan Hernandes on 01-15-2024 Neutrophils/100 WBC (Bld) 55.8 % Normal . [facility] Comment on above: Performed By: #### B UN, PP, CBC, CREAT, LIPID, LYTES #### [facility] [address] [place] [address] [place] Carbon dioxide, total [Moles /volume] in Serum or PlasmaOrdered By: Karan Hernandes on 01-15-2024 CO2 [Moles/Vol] 27.5 mmol/L Normal 21.0-31.0 [facility] Comment on above: Order Comment: FASTI NG Y Performed By: #### B UN, PP, CBC, CREAT, LIPID, LYTES #### [facility] [address] [place] [address] [place] Chloride [Moles/volume] in S janis or PlasmaOrdered By: Karan Hernandes on 01-15-2024 Chloride [Moles/Vol] 100 mmol/L Normal 98-107 [facility] Comment on above: Order Comment: FASTI NG Y Performed By: #### B UN, PP, CBC, CREAT, LIPID, LYTES #### [facility] [address] [place] [address] [place] Cholesterol [Mass/volume] in Serum or PlasmaOrdered By: Karan Hernandes on 01-15-2024 Cholesterol [Mass/Vol] 101 mg/dL Low 140-200 [facility] Comment on above: Chol less than 200 m g/dl low riskChol 201-239 mg/dl borderline riskChol 240 mg/dl and greater high risk Order Comment: FASTI NG Y Result Comment: Chol less than 200 mg/dl low risk Chol 201-239 mg/dl borderline risk Chol 240 mg/dl and greater high risk Performed By: #### C MP, BNP, PT, HS TROP, PTT, DIFF CBC, CK #### [facility] [address] [place] [address] [place] Cholesterol in LDL Calc [Mas s/Vol]Ordered By: Karan Hernandes on 01-15-2024 Cholesterol in LDL [Mass/Vol] 47 mg/dL 0-100 [facility] Comment on above: LDL ATP III CLASSIFI CATIONLDL less than 100 mg/dL OptimalLDL 100-129 mg/dL Near or above optimalLDL 130-159 mg/dL Borderline highLDL 160-189 mg/dL HighLDL greater than 189 mg/dL Very high Cholesterol in VLDL Calc [Ma ss/Vol]Ordered By: Karan Hernandes on 01-15-2024 Cholesterol in VLDL [Mass/Vol] 13 mg/dL [facility] Coagulation Profileon 2023 aPTT Coag (Bld) [Time] 29.2 s Normal 25.1-36.5 [facility] Comment on above: Result Comment: A he matocrit value greater than 55% may lead to inaccurate results in coagulation testing. Patients having hematocrit values >55% require a special collection tube for coagulation studies. Please contact the laboratory at [phone] for redraw instructions. PERFORMED BY: [place] [address] PATHOLOGIST AUTOMOTIVE COLLISION REPAIR INSTRUCTOR MELITON MCKAY M.D. Performed By: #### C MP, BNP, PT, HS TROP, PTT, DIFF CBC, CK #### [address] Complete Blood Count Auto Di ffon 01-15-2024 Mean Corpuscular HGB Conc 33.9 g/dL Normal 32.5-35.6 [facility] Comment on above: Performed By: #### B UN, PP, CBC, CREAT, LIPID, LYTES #### [address] NRBC% 0.1 /100{WBC} Normal 0-0.5 [facility] Comment on above: Performed By: #### B UN, PP, CBC, CREAT, LIPID, LYTES #### [address] Creatinineon 01-15-2024 Creatinine Clr Calc Pharmacy 74.39 Normal [facility] Comment on above: Order Comment: FASTI NG Y Performed By: #### C MP, BNP, PT, HS TROP, PTT, DIFF CBC, CK #### [address] GFR/1.73 sq M.predicted MDRD (S/P/Bld) [Vol rate/Area] mL/min/{1.73_m2} Normal [facility] Comment on above: Order Comment: FASTI NG Y Performed By: #### C MP, BNP, PT, HS TROP, PTT, DIFF CBC, CK #### [place] [id number] [facility] Creatinine [Mass/volume] in Serum or PlasmaOrdered By: Karan Hernandes on 01-15-2024 Creatinine [Mass/Vol] 0.92 mg/dL Normal 0.70-1.30 [facility] Comment on above: Order Comment: FASTI NG Y Performed By: #### C MP, BNP, PT, HS TROP, PTT, DIFF CBC, CK #### [facility] [address] [place] [address] [facility] ECG 12 lead ECGon 01-15-2024 ECG 12 lead ECG [facility] [place] [address] Electrocardiograph Report Signed Patient: Gareth Menjivar MR#: [id number] : 1950 Acct:[id number] Age/Sex: 73 / M ADM Date: 01/15/24 Loc: Room: Type: [facility] Attending Dr: Karan Hernandes MD Ordering Provider: Arik Cabrales MD Date of Service: 01/15/2403/06/1225 ECG/ECG 12 lead ECG: Post Angioplasty Procedure Copies to: Test Reason : Blood Pressure : / mmHG Vent. Rate : 059 BPM Atrial Rate : 059 BPM P-R Int : 266 ms QRS Dur : 082 ms QT Int : 420 ms P-R-T Axes : 077 039 055 degrees QTc Int : 415 ms Sinus bradycardia with 1st degree AV block Otherwise normal ECG No previous ECGs available Confirmed by Rigoberto Cuellar ([id number]) on 01/16/2024 11:08:31 PM Referred By: KATE Electronically Signed By:Rigoberto Cuellar Transcribed By: MUS Signed By Rigoberto Cuellar MD 01/16/24 8946 Normal [facility] ECG 12 lead ECG [facility] [address] [place] [address] [place] [address] Electrocardiograph Report Signed Patient: Gareth Menjivar MR#: [id number] : 1950 Acct:[id number] Age/Sex: 73 / M ADM Date: 01/15/24 Loc: Room: Type: [facility] Attending Dr: Karan Hernandes MD Ordering Provider: Karan Hernandes MD, [facility] Date of Service: 01/15/2403/06/921 ECG/ECG 12 lead ECG: pre cath Copies to: Test Reason : Blood Pressure : / mmHG Vent. Rate : 070 BPM Atrial Rate : 070 BPM P-R Int : 238 ms QRS Dur : 080 ms QT Int : 396 ms P-R-T Axes : 066 013 043 degrees QTc Int : 427 ms Sinus rhythm with 1st degree AV block Otherwise normal ECG When compared with ECG of 14-APR-2016 06:38, No significant change was found Confirmed by Rigoberto Cuellar ([id number]) on 01/16/2024 11:08:28 PM Referred By: Electronically Signed By:Rigoberto Cuellar Transcribed By: MUS Signed By Rigoberto Cuellar MD 01/16/24 2308 Normal [facility] Erythrocyte distribution wid th [Ratio] by Automated countOrdered By: Karan Hernandes on 01-15-2024 Erythrocyte distribution width (RBC) [Ratio] 13.8 % Normal 12.0-14.8 [facility] Comment on above: Performed By: #### B UN, PP, CBC, CREAT, LIPID, LYTES #### [facility] [address] [place] [address] Erythrocytes [#/volume] in B lood by Automated countOrdered By: Karan Hernandes on 01-15-2024 RBC (Bld) [#/Vol] 4.13 10*6/uL Normal 3.90-5.60 [facility] Comment on above: Performed By: #### B UN, PP, CBC, CREAT, LIPID, LYTES #### [facility] [address] [place] [address] Hematocrit [Volume Fraction] of Blood by Automated countOrdered By: Karan Hernandes on 01-15-2024 Hematocrit (Bld) [Volume fraction] 37.3 % Low 38.8-50.0 [facility] Comment on above: Performed By: #### B UN, PP, CBC, CREAT, LIPID, LYTES #### [facility] [address] Hemoglobin [Mass/volume] in BloodOrdered By: Karan Hernandes on 01-15-2024 Hemoglobin (Bld) [Mass/Vol] 12.7 g/dL Low 13.0-17.0 [facility] Comment on above: Performed By: #### B UN, PP, CBC, CREAT, LIPID, LYTES #### [facility] [address] INR in Platelet poor plasma by Coagulation assayOrdered By: Karan Hernandes on 01-15-2024 INR Coag (PPP) [Relative time] 1.0 {INR} Normal [facility] Comment on above: INR Therapeutic Rang e A) Pre- and Peroperative OAT started two weeks before surgery. NOT HIP SURGERY: 1.5 - 2.5 HIP SURGERY: 2 - 3B) Primary and secondary prevention of venous THROMBOSIS: 2 - 3C) Active venous thrombosis, pulmonary embolismand prevention of recurrent venous thrombosis: 2 - 3D) Prevention of arterial thromboembolismincluding patients with mechanical heart valves: 3 - 4.5 Result Comment: INR Therapeutic Range A) Pre- and Peroperative OAT started two weeks before surgery. NOT HIP SURGERY: 1.5 - 2.5 HIP SURGERY: 2 - 3 B) Primary and secondary prevention of venous THROMBOSIS: 2 - 3 C) Active venous thrombosis, pulmonary embolism and prevention of recurrent venous thrombosis: 2 - 3 D) Prevention of arterial thromboembolism including patients with mechanical heart valves: 3 - 4.5 Performed By: #### C MP, BNP, PT, HS TROP, PTT, DIFF CBC, CK #### [address] Leukocytes [#/volume] correc rosie for nucleated erythrocytes in Blood by Automated counOrdered By: Karan Hernandes on 01-15-2024 WBC corrected for nucl RBC Auto (Bld) [#/Vol] 4.1 10*3/uL 4.1-10.5 [facility] Leukocytes [#/volume] in Blo od by Automated countOrdered By: Karan Hernandes on 01-15-2024 WBC (Bld) [#/Vol] 4.1 10*3/uL Normal 4.1-10.[address] [facility] Comment on above: Performed By: #### B UN, PP, CBC, CREAT, LIPID, LYTES #### [facility] [address] Lipid Panelon 01-15-2024 LDL Cholesterol,Calculat ed 47 mg/dL Normal 0-100 [facility] Comment on above: Order Comment: BRYANT Burger Result Comment: LDL ATP III CLASSIFICATION LDL less than 100 mg/dL Optimal LDL 100-129 mg/dL Near or above optimal LDL 130-159 mg/dL Borderline high LDL 160-189 mg/dL High LDL greater than 189 mg/dL Very high Performed By: #### C MP, BNP, PT, HS TROP, PTT, DIFF CBC, CK #### [facility] [address] Triglyceride w/Reflex 65 mg/dL Normal 0-149 [facility] Comment on above: Order Comment: BRYANT Burger Result Comment: TRIG ATP III CLASSIFICATION TRIG less than 150 mg/dL Normal TRIG 150-199 mg/dL Borderline high TRIG 200-500 mg/dL High TRIG greater than 500 mg/dL Very high Standard traceable to the Center for Disease Conrtrol and Prevention (CDC) test method. Performed By: #### C MP, BNP, PT, HS TROP, PTT, DIFF CBC, CK #### [facility] [address] VLDL CHOLESTEROL 13 mg/dL Normal [facility] Comment on above: Order Comment: BRYANT Burger Performed By: #### C MP, BNP, PT, HS TROP, PTT, DIFF CBC, CK #### [facility] [address] Lymphocytes [#/volume] in Bl ood by Automated countOrdered By: Karan Hernandes on 01-15-2024 Lymphocytes (Bld) [#/Vol] 1.4 10*3/uL Normal 1.00-4.8 [facility] Comment on above: Performed By: #### B UN, PP, CBC, CREAT, LIPID, LYTES #### [address] Lymphocytes/100 leukocytes i n Blood by Automated countOrdered By: Karan Hernandes on 01-15-2024 Lymphocytes/100 WBC (Bld) 34.7 % Normal . [facility] Comment on above: Performed By: #### B UN, PP, CBC, CREAT, LIPID, LYTES #### [address] MCH [Entitic mass] by Automa rosie countOrdered By: Karan Hernandes on 01-15-2024 MCH (RBC) [Entitic mass] 30.6 pg Normal 27.5-35.2 [facility] Comment on above: Performed By: #### B UN, PP, CBC, CREAT, LIPID, LYTES #### [address] MCHC Auto (RBC) [Mass/Vol]Or dered By: Karan Hernandes on 01-15-2024 MCHC (RBC) [Mass/Vol] 33.9 g/dL 32.5-35.6 [facility] MCV [Entitic volume] by Auto mated countOrdered By: Karan Hernandes on 01-15-2024 MCV (RBC) [Entitic vol] 90.3 fL Normal 83.5-101 [facility] Comment on above: Performed By: #### B UN, PP, CBC, CREAT, LIPID, LYTES #### [address] Neutrophils [#/volume] in Bl ood by Automated countOrdered By: Karan Hernandes on 01-15-2024 Neutrophils (Bld) [#/Vol] 2.3 10*3/uL Normal 1.8-7.7 [facility] Comment on above: Performed By: #### B UN, PP, CBC, CREAT, LIPID, LYTES #### [address] [place] [address] [place] No Panel InformationOrdered By: Karan Hernandes on 01-15-2024 Estimated GFR (CKD-EPI) > 60.0 mL/Min [facility] Creatinine Clearance (Chem 74.39 [facility] Nucleated erythrocytes [Pres ence] in Blood by Automated countOrdered By: Karan Hernandes on 01-15-2024 Nucleated RBC Auto Ql (Bld) 0.1 /100{WBC} 0-0.5 [facility] Platelet mean volume [Entiti c volume] in Blood by Automated countOrdered By: Karan Hernandes on 01-15-2024 Platelet mean volume (Bld) [Entitic vol] 8.7 fL Normal 6.6-10.1 [facility] Comment on above: Performed By: #### B UN, PP, CBC, CREAT, LIPID, LYTES #### [facility] [address] [place] [address] Platelets [#/volume] in Bloo d by Automated countOrdered By: Karan Hernandes on 01-15-2024 Platelets (Bld) [#/Vol] 256 10*3/uL Normal 150-450 [facility] Comment on above: Performed By: #### B UN, PP, CBC, CREAT, LIPID, LYTES #### [address] Potassium [Moles/volume] in Serum or PlasmaOrdered By: Karan Hernandes on 01-15-2024 Potassium [Moles/Vol] 4.2 mmol/L Normal 3.5-5.1 [facility] Comment on above: Order Comment: FASTI NG Y Performed By: #### B UN, PP, CBC, CREAT, LIPID, LYTES #### [facility] [address] [place] [address] Prothrombin time (PT)Ordered By: Karan Hernandes on 01-15-2024 PT Coag (PPP) [Time] 11.2 s Normal 9.0-12.9 [facility] Comment on above: A hematocrit value g reater than 55% may lead to inaccurate results in coagulation testing. Patients having hematocrit values >55% require a special collection tube for coagulation studies. Please contact the laboratory at [phone] for redraw instructions. Result Comment: A he matocrit value greater than 55% may lead to inaccurate results in coagulation testing. Patients having hematocrit values >55% require a special collection tube for coagulation studies. Please contact the laboratory at [phone] for redraw instructions. Performed By: #### C MP, BNP, PT, HS TROP, PTT, DIFF CBC, CK #### [address] Serum or plasma anion gap de terminationOrdered By: Karan Hernandes on 01-15-2024 Anion gap [Moles/Vol] 9.7 mmol/L Normal 6.0-15.0 [facility] Comment on above: Order Comment: FASTI NG Y Performed By: #### B UN, PP, CBC, CREAT, LIPID, LYTES #### [address] Serum or plasma high density lipoprotein (HDL) cholesterol measurementOrdered By: Karan Hernandes on 01-15-2024 Cholesterol in HDL [Mass/Vol] 41 mg/dL Normal 23-92 [facility] Comment on above: HDL CHOL ATP-III CLA SSIFICATION Cardiovascular RiskHDL > or equal to 60 mg/dL LOWHDL < 40 mg/dL HIGH Order Comment: FASTI NG Y Result Comment: HDL CHOL ATP-III CLASSIFICATION Cardiovascular Risk HDL > or equal to 60 mg/dL LOW HDL < 40 mg/dL HIGH Performed By: #### C MP, BNP, PT, HS TROP, PTT, DIFF CBC, CK #### [address] Serum or plasma total choles terol/high density lipoprotein (HDL) cholesterol mass ratOrdered By: Karan Hernandes on 01-15-2024 Cholesterol.total/Ch olesterol in HDL [Mass ratio] 2.5 {ratio} Normal <5.0 [facility] Comment on above: Order Comment: FASTI NG Y Result Comment: PERF ORMED BY: [place] [address] PATHOLOGIST AUTOMOTIVE COLLISION REPAIR INSTRUCTOR MELITON MCKAY M.D. Performed By: #### C MP, BNP, PT, HS TROP, PTT, DIFF CBC, CK #### [facility] [address] Sodium [Moles/volume] in Ser um or PlasmaOrdered By: Karan Hernandes on 01-15-2024 Sodium [Moles/Vol] 133 mmol/L Low 136-[address] [facility] Comment on above: Order Comment: FASTI NG Y Performed By: #### B UN, PP, CBC, CREAT, LIPID, LYTES #### [facility] [address] Triglyceride [Mass/volume] i n Serum or PlasmaOrdered By: Karan Hernandes on 01-15-2024 Triglyceride [Mass/Vol] 65 mg/dL 0-149 [facility] Comment on above: TRIG ATP III CLASSIF ICATIONTRIG less than 150 mg/dL NormalTRIG 150-199 mg/dL Borderline highTRIG 200-500 mg/dL High TRIG greater than 500 mg/dL Very highStandard traceable to the Center for Disease Conrtrol and Prevention (CDC) test method. Urea nitrogen [Mass/volume] in Serum or PlasmaOrdered By: Karan Hernandes on 01-15-2024 Urea nitrogen [Mass/Vol] 13 mg/dL Normal 7-25 [facility] Comment on above: Order Comment: FASTI NG Y Performed By: #### B UN, PP, CBC, CREAT, LIPID, LYTES #### [facility] [address] [place] [id number] [facility] Family Medicine Office/Clini c Noteon 11-29-2023 Family Medicine Office/Clinic Note Chief Complaint Subsequent Medicare Wellness Vist History of Present Illness I was in the office and available for consultation and to provide direct supervision at the time of this visit. I have provided supervision of the care team and have reviewed this chart and office note and agree with the plan of care. Covid-19, MERS, Ebola Screen *Contact With Person With Highly Contagious Disease Like Ebola/MERS/COVID-19 AND Have One or More of the Symptoms Below : No *Travel to a Country With Wide-Spread Ebola/MERS/COVID-19 in the Past 21 Days AND Have One or More of the Symptoms Below : No Patient Reported Covid-19 Testing : No *Verify Droplet, Contact Precautions for Ebola (Reference for CDC) : N/A *Verify Airborne, Droplet Precautions for MERS/COVID-19 : N/A Manjeet Crook Lainey - 11/27/2023 13:01 EST Medicare/Medicaid Summary Systolic Blood Pressure : 120 mmHg Diastolic Blood Pressure : 64 mmHg Blood Pressure Location : Left arm O2 Sat Resting/Exertion Alpha : Resting Peripheral Pulse Rate : 70 bpm SpO2 : 99 % Numeric Rating Pain Score : 7 Manjeet Crook R - 11/27/2023 13:31 EST Chief Complaint : Subsequent Medicare Wellness Vist Patient Counseled : Nutrition Height/Length Measured : 171 cm(Converted to: 5 ft 7 in, 67.32 in) Weight Measured : 81.3 kg(Converted to: 179 lb 4 Ounces, 179.236 lb) Body Mass Index Measured : 27.8 kg/m2 Height in Inches : 67 in Weight in Pounds : 178.86 lb Waist Measurement : 96 cm(Converted to: 38 in) Blood Pressure Position : Sitting Pain Present : Yes actual or suspected pain Numeric Rating Pain Scale : 4 Primary Pain Comments : improvement from one week prior OV with PCP Primary Pain Location : Abdomen lower Manjeet Crook R - 11/27/2023 13:01 EST Patient Preferred Method of Communication No Preference Hearing and Vision Screening FT FT Whisper Test Comments : no issues or concerns Vision Screen Comments : wears corrective lenses, follows with [facility] as needed Jarrett Crookin R - 11/27/2023 13:01 EST Advance Directive FT Advance Directive : No Patient Wishes to Receive Further Information on Advance Directives : Yes Organ Donation Consent : No Jarrett Crookkoko Retana - 11/27/2023 13:01 EST Procedures / Surgeries FT - Procedure History (As Of: 11/27/2023 13:32:29 EST) Anesthesia Minutes: 0 ; Procedure Name: Colonoscopy ; Procedure Minutes: 0 ; Comments: 08/25/2023 10:34 Julienne Calvin LPN [address] [place] [address] ; Last Reviewed Dt/Tm: 11/27/2023 13:05:33 EST Anesthesia Minutes: 0 ; Procedure Name: Tonsillectomy ; Procedure Minutes: 0 ; Comments: 08/25/2023 10:34 Julienne Calvin LPN [address] [place] [address] ; Last Reviewed Dt/Tm: 11/27/2023 13:05:33 EST Procedure Dt/Tm: 2015 ; Anesthesia Minutes: 0 ; Procedure Name: Coronary artery stent ; Procedure Minutes: 0 ; Last Reviewed Dt/Tm: 11/27/2023 13:05:33 EST Anesthesia Minutes: 0 ; 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 ; Procedure Minutes: 0 ; Last Reviewed Dt/Tm: 11/27/2023 13:05:33 EST Anesthesia Minutes: 0 ; Procedure Name: Arthroscopy of wrist ; Procedure Minutes: 0 ; Last Reviewed Dt/Tm: 11/27/2023 13:05:33 EST Anesthesia Minutes: 0 ; Procedure Name: Repair of umbilical hernia ; Procedure Minutes: 0 ; Last Reviewed Dt/Tm: 11/27/2023 13:05:33 EST Procedure Dt/Tm: 09/27/2023 ; Provider: Darell STEPHEN MD; Anesthesia Minutes: 0 ; Procedure Name: Colonoscopy ; Procedure Minutes: 0 ; Last Reviewed Dt/Tm: 11/27/2023 13:05:33 EST Family History Family History (As Of: 11/27/2023 13:32:29 EST) Father: Relation: Father ; Gender: Male ; Nomenclature: Cardiac arrest ; Value: Positive Mother: Relation: Mother ; Gender: Female ; Nomenclature: Depression ; Value: Positive Nomenclature: Anxiety ; Value: Positive Nomenclature: Hypertension ; Value: Positive Nomenclature: Stroke ; Value: Positive Medicare/Medicaid Social History FT Social History (As Of: 11/27/2023 13:32:29 EST) Alcohol: Current, 1-2 times per week, 1 drinks/episode average. 2.00 drinks/episode maximum. Household alcohol concerns: No. (Last Updated: 11/27/2023 13:05:51 EST by Manjeet Crook) Tobacco: Denies Tobacco Use Never (less than 100 in lifetime) Tobacco Use:. Never Smokeless Tobacco Use:. Household tobacco concerns: No. Comments: 11/27/2023 13:06 - Manjeet Crook: denies use (Last Updated: 11/27/2023 13:30:42 EST by Anali Iqbal LPN) Substance Abuse: Denies Substance Abuse (Last Updated: 08/25/2023 10:35:19 EDT by Julienne Landeros LPN ) Employment/School: Retired, Highest education level: High school. (Last Updated: 08/25/2023 10:35:39 EDT by Julienne Landeros LPN) Home/Environment: Lives with Spouse. (Last Updated: 08/25/2023 10:35:51 EDT by Julienne Landeros LPN) Exercise: Exercise duration: 20. Exercise frequency: 3-4 times/week. (Last Updated: 08/25/2023 10:36:05 EDT by Julienne Landeros LPN) Health Risk Assessment FT (more content not included)... [facility] Comment on above: Result Comment: Elec tronically Signed By: Juani Bishop MD\.br\Date and Time Signed: 11/29/23 09:48 EST\.br\Electronically Co-Signed By: Manjeet Crook\.br\Date and Time Co-Signed: 11/27/23 13:56 EST Ambulatory Visit Summaryon 0 11-27-2023 Ambulatory Visit Summary GARETH MENJIVAR :1950 Visit Date:11/27/2023 Ambulatory Visit Instructions Your Diagnosis Annual visit for general adult medical examination without abnormal findings Encounter for screening for other disorder HTN (hypertension) Hypothyroid GERD without esophagitis Overweight Your Care Team Attending Physician - Juani Bishop MD Primary Care Physician - Juani Bishop MD This Is Your Medications List allopurinol (allopurinol 300 mg Tab) amlodipine (amLODIPine 5 mg Tab) aspirin (Aspirin Low Dose 81 mg oral enteric coated tablet) atenolol (atenolol 50 mg Tab) atorvastatin (atorvastatin 40 mg Tab) lamotrigine (lamotrigine 100 mg Tab) levothyroxine (levothyroxine 75 mcg (0.075 mg) Tab) lorazepam (LORazepam 0.5 mg Tab) methylPREDNISolone (Medrol Dosepack 4 mg Tab) nitroglycerin (nitroglycerin 0.4 mg sublingual Tab) pantoprazole (Pantoprazole [address] Tab) sildenafil (sildenafil 100 mg Tab) sulfamethoxazole-tri methoprim (Bactrim D.S. 800 mg-160 mg Tab) tamsulosin (Flomax 0.4 mg Cap) valsartan (valsartan 80 mg Tab) Procedures Performed Colonoscopy (09/27/2023), Coronary artery stent (2015), Amputation of finger of left hand, Arthroscopy of wrist, Colonoscopy, Repair of umbilical hernia, Tonsillectomy. Discharge Vitals Heart Rate (Peripheral) 70 Blood Pressure 120/64 Height 171 cm Height 67 in Weight 81.3 kg Weight 178.86 lb BMI 27.8 What to do next Scheduled Follow-Up Appointments 2023 9:15 AM EDT With: Fransisco DAMON, Juani Sorto Where: [place] [address]- \.br\ Medications\.br\ What How Much When Why Instructions\.br\ Unchanged allopurinol (allopurinol 300 mg Tab) 1 Tablets By Mouth Every day\.br\ Unchanged amlodipine (amLODIPine 5 mg Tab) 1 Tablets By Mouth Every day\.br\ Unchanged aspirin (Aspirin Low Dose 81 mg oral enteric coated tablet) TAKE 1 TABLET BY MOUTH DAILY \.br\ Unchanged atenolol (atenolol 50 mg Tab) 1 Tablets By Mouth Every day\.br\ Unchanged atorvastatin (atorvastatin 40 mg Tab) 1 Tablets By Mouth Every day\.br\ Unchanged lamotrigine (lamotrigine 100 mg Tab) 1 Tablets By Mouth Every day\.br\ Unchanged levothyroxine (levothyroxine 75 mcg (0.075 mg) Tab) 1 Tablets By Mouth Every day\.br\ Unchanged lorazepam (LORazepam 0.5 mg Tab) 1 Tablets By Mouth 2 times a day\.br\ Unchanged methylPREDNISolone (Medrol Dosepack 4 mg Tab) 1 Packets By Mouth As Directed Constipation Testicular pain Duration: 6 Days as directed on package labeling \.br\ Unchanged nitroglycerin (nitroglycerin 0.4 mg sublingual Tab) 1 Tablets Sublingual Every 5 minutes as needed for for chest pain\.br\ Unchanged pantoprazole (Pantoprazole [address] Tab) TAKE 1 TABLET BY MOUTH 30 MINUTES BEFORE A MEAL \.br\ Unchanged sildenafil (sildenafil 100 mg Tab) 1 Tablets By Mouth Every day as needed for for erectile dysfunction\.br\ Unchanged sulfamethoxazole-tr imethoprim (Bactrim D.S. 800 mg-160 mg Tab) 1 Tablets By Mouth 2 times a day Duration: 10 Days\.br\ Unchanged tamsulosin (Flomax 0.4 mg Cap) 1 Capsules By Mouth Every day BPH with urinary obstruction Constipation HTN (hypertension) Gout GERD without esophagitis ED (erectile dysfunction) Hypothyroid Body mass index (BMI) of 29.0-29.9 in adult Overweight\.br\ Unchanged valsartan (valsartan 80 mg Tab) 1 Tablets By Mouth Every day\.br\ Allergies\.br\ No Known Allergies\.br\ No Known Medication Allergies\.br\ Problems\.br\ Ongoing - Any problem that you are currently receiving treatment for.\.br\ Anxiety attack\.br\ Benign neoplasm of sigmoid colon\.br\ Body mass index (BMI) of 29.0-29.9 in adult\.br\ BPH with urinary obstruction\.br\ Constipation\.br\ ED (erectile dysfunction)\.br\ GERD without esophagitis\.br\ Gout\.br\ HTN (hypertension)\.br\ Hypothyroid\.br\ Overweight\.br\ Screening for skin cancer\.br\ Sigmoid diverticulosis\.br\ Testicular pain\.br\ Patient Survey\.br\ You may receive a survey via text or e-mail asking about your office visit. Please share your experience with us by completing your survey. We appreciate your feedback and thank you for choosing us for your care.\.br\ Education Materials\.br\ Fall Prevention in the Home, Adult\.br\ Falls can cause injuries and affect people of all ages. There are many simple things that you can do to make your home safe and to help prevent falls. Ask for help when making these changes, if needed.\.br\ What actions can I take to prevent falls?\.br\ General instructions\.br\ ? \.br\ Use good lighting in all rooms. Replace any light bulbs that burn out, turn on lights if it is dark, and use night-lights.\.br\ ? \.br\ Place frequently used items in [id number] places. Lower the shelves around your home if necessary.\.br\ ? \.br\ Set up furniture so that there are clear paths around it. Avoid moving your furniture around.\.br\ ? \.br\ Remove throw rugs and other tripping hazards from the floor.\.br\ ? \.br\ Avoid walking on wet floors.\.br\ ? \.br\ Fix any uneven floor surfaces.\.br\ ? \.br\ Add color or contrast paint or tape to grab bars and handrails in your home. Place contrasting color strips on the first and last steps of staircases.\.br\ ? \.br\ When you use a stepladder, make sure that it is completely opened and that the sides and supports are firmly locked. Have someone hold the ladder while you are using it. Do not climb a closed stepladder.\.br\ ? \.br\ Know where your pets are when moving through your home.\.br\ What can I do in the bathroom?\.br\ \.br\ \.br\ ? \.br\ Keep the floor dry. Immediately clean up any water that is on the floor.\.br\ ? \.br\ Remove soap buildup in the tub or shower regularly.\.br\ ? \.br\ Use nonskid mats or decals on the floor of the tub or shower.\.br\ ? \.br\ Attach bath mats securely with double-sided, nonslip rug tape.\.br\ ? \.br\ If you need to sit down while you are in the shower, use a plastic, nonslip stool.\.br\ ? \.br\ Install grab bars by the toilet and in the tub and shower. Do not use towel bars as grab bars.\.br\ What can I do in the bedroom?\.br\ ? \.br\ Make sure that a bedside light is easy to reach.\.br\ ? \.br\ Do not use oversized bedding that reaches the floor.\.br\ ? \.br\ Have a firm chair that has side arms to use for getting dressed.\.br\ What can I do in the kitchen?\.br\ ? \.br\ Clean up any spills right away.\.br\ ? \.br\ If you need to reach for something above you, use a sturdy step stool that has a grab bar.\.br\ ? \.br\ Keep electrical cables out of the way.\.br\ ? \.br\ Do not use floor tajik or wax that makes floors slippery. If you must use wax, make sure that it is non-skid floor wax.\.br\ What can I do with my stairs?\.br\ ? \.br\ Do not leave any items on the stairs.\.br\ ? \.br\ Make sure that you have a light switch at the top and the bottom of the stairs. Have them installed if you do not have them.\.br\ ? \.br\ Make sure that there are handrails on both sides of the stairs. Fix handrails that are broken or loose. Make sure that handrails are as long as the staircases.\.br\ ? \.br\ Install non-slip stair treads on all stairs in your home.\.br\ ? \.br\ Avoid having throw rugs at the top or bottom of stairs, or secure the rugs with carpet tape to prevent them from moving.\.br\ ? \.br\ Choose a carpet design that does not hide the edge of steps on the stairs.\.br\ ? \.br\ Check any carpeting to make sure that it is firmly attached to the stairs. Fix any carpet that is loose or worn.\.br\ What can I do on the outside of my home?\.br\ ? \.br\ Use bright outdoor lighting.\.br\ ? \.br\ Regularly repair the edges of walkways and driveways and fix any cracks.\.br\ ? \.br\ Remove high doorway thresholds.\.br\ ? \.br\ Trim any shrubbery on the main path into your home.\.br\ ? \.br\ Regularly check that handrails are securely fastened and in good repair. Both sides of all steps should have handrails.\.br\ ? \.br\ Install guardrails along the edges of any raised decks or porches.\.br\ ? \.br\ Clear walkways of debris and clutter, including tools and rocks.\.br\ ? \.br\ Have leaves, snow, and ice cleared regularly.\.br\ ? \.br\ Use sand or salt on walkways during winter months.\.br\ ? \.br\ In the garage, clean up any spills right away, including grease or oil spills.\.br\ What other actions can I take?\.br\ ? \.br\ Wear closed-toe shoes that fit well and support your feet. Wear shoes that have rubber soles or low heels.\.br\ ? \.br\ Use mobility aids as needed, such as canes, walkers, scooters, and crutches.\.br\ ? \.br\ Review your medicines with your health care provider. Some medicines can cause dizziness or changes in blood pressure, which increase your risk of falling.\.br\ Talk with your health care provider about other ways that you can decrease your risk of falls. This may include working with a physical therapist or epic trainer to improve your strength, luis eduardo [facility] Ambulatory Visit Summary GARETH MENJIVAR :1950 Visit Date:11/27/2023 Ambulatory Visit Instructions Your Care Team Attending Physician - Juani Bishop MD Primary Care Physician - Juani Bishop MD. This Is Your Medications List allopurinol (allopurinol 300 mg Tab) amlodipine (amLODIPine 5 mg Tab) aspirin (Aspirin Low Dose 81 mg oral enteric coated tablet) atenolol (atenolol 50 mg Tab) atorvastatin (atorvastatin 40 mg Tab) lamotrigine (lamotrigine 100 mg Tab) levothyroxine (levothyroxine 75 mcg (0.075 mg) Tab) lorazepam (LORazepam 0.5 mg Tab) nitroglycerin (nitroglycerin 0.4 mg sublingual Tab) pantoprazole (Pantoprazole [address] Tab) sildenafil (sildenafil 100 mg Tab) sulfamethoxazole-tri methoprim (Bactrim D.S. 800 mg-160 mg Tab) tamsulosin (Flomax 0.4 mg Cap) valsartan (valsartan 80 mg Tab) Procedures Performed Colonoscopy (09/27/2023), Coronary artery stent (2016), Amputation of finger of left hand, Arthroscopy of wrist, Colonoscopy, Repair of umbilical hernia, Tonsillectomy. Discharge Vitals Temperature (Temporal Artery) 36.8 ?C Heart Rate (Peripheral) 70 Blood Pressure 120/64 Height 171 cm Height 67 in Weight 81.3 kg Weight 178.86 lb BMI 27.8 What to do next Scheduled Follow-Up Appointments 2023 9:15 AM EDT With: Frasnisco DAMON, Juani Sorto Where: [facility] Normal [address] [place] [address]- \.br\ Medications\.br\ What How Much When Why Instructions\.br\ Unchanged allopurinol (allopurinol 300 mg Tab) 1 Tablets By Mouth Every day\.br\ Unchanged amlodipine (amLODIPine 5 mg Tab) 1 Tablets By Mouth Every day\.br\ Unchanged aspirin (Aspirin Low Dose 81 mg oral enteric coated tablet) TAKE 1 TABLET BY MOUTH DAILY \.br\ Unchanged atenolol (atenolol 50 mg Tab) 1 Tablets By Mouth Every day\.br\ Unchanged atorvastatin (atorvastatin 40 mg Tab) 1 Tablets By Mouth Every day\.br\ Unchanged lamotrigine (lamotrigine 100 mg Tab) 1 Tablets By Mouth Every day\.br\ Unchanged levothyroxine (levothyroxine 75 mcg (0.075 mg) Tab) 1 Tablets By Mouth Every day\.br\ Unchanged lorazepam (LORazepam 0.5 mg Tab) 1 Tablets By Mouth 2 times a day\.br\ Unchanged nitroglycerin (nitroglycerin 0.4 mg sublingual Tab) 1 Tablets Sublingual Every 5 minutes as needed for for chest pain\.br\ Unchanged pantoprazole (Pantoprazole [address] Tab) TAKE 1 TABLET BY MOUTH 30 MINUTES BEFORE A MEAL \.br\ Unchanged sildenafil (sildenafil 100 mg Tab) 1 Tablets By Mouth Every day as needed for for erectile dysfunction\.br\ Unchanged sulfamethoxazole-tr imethoprim (Bactrim D.S. 800 mg-160 mg Tab) 1 Tablets By Mouth 2 times a day Duration: 10 Days\.br\ Unchanged tamsulosin (Flomax 0.4 mg Cap) 1 Capsules By Mouth Every day BPH with urinary obstruction Constipation HTN (hypertension) Gout GERD without esophagitis ED (erectile dysfunction) Hypothyroid Body mass index (BMI) of 29.0-29.9 in adult Overweight\.br\ Unchanged valsartan (valsartan 80 mg Tab) 1 Tablets By Mouth Every day\.br\ Allergies\.br\ No Known Allergies\.br\ No Known Medication Allergies\.br\ Problems\.br\ Ongoing - Any problem that you are currently receiving treatment for.\.br\ Anxiety attack\.br\ Benign neoplasm of sigmoid colon\.br\ Body mass index (BMI) of 29.0-29.9 in adult\.br\ BPH with urinary obstruction\.br\ Constipation\.br\ ED (erectile dysfunction)\.br\ GERD without esophagitis\.br\ Gout\.br\ HTN (hypertension)\.br\ Hypothyroid\.br\ Overweight\.br\ Screening for skin cancer\.br\ Sigmoid diverticulosis\.br\ Testicular pain\.br\ Patient Survey\.br\ You may receive a survey via text or e-mail asking about your office visit. Please share your experience with us by completing your survey. We appreciate your feedback and thank you for choosing us for your care.\.br\ \.br\ [facility] Office/Clini c Noteon 11-27-2023 Family Medicine Office/Clinic Note HPI Staff Gareth is a 73 year old male presenting for follow up testicular pain IRMA rxed bactrim DS TO refer to urology INB by today The testicular pain has improved some nothing to brag about. flu: refused. questions/concerns: none History of Present Illness - Doing better - Still in pain - Has not had regular BMs lately. Review of Systems PHQ Score Initial Depression Screen Score: 0 SCORE Physical Exam Vitals & Measurements T: 36.8 ?C(Temporal Artery) HR: 70(Peripheral) BP: 120/64 SpO2: 99% HT: 67 in HT: 171 cm WT: 81.3 kg WT: 178.86 lb BMI: 27.8 General: alert, no acute distress ENMT: oral mucosa moist, Cardiovascular: normal peripheral perfusion Respiratory: , respirations non labored Extremities: no deformity, no trauma Neurological: oriented x 4, LOC appropriate for age, CN II-XII intact, motor strength equal & normal bilaterally, speech normal Abdomen: Soft, Nontender, Non-distended, + BS Assessment/Plan 1. Constipation (K59.00: Constipation, unspecified) - Likely the cause of the belly pain. - Advised miralax. Ordered: methylPREDNISolone, = 1 packet(s), Oral, As Directed, as directed on package labeling, X 6 day(s), # 21 tab(s), Refills(s) 0, Pharmacy: [facility] #[id number], 171, cm, 11/27/23 13:36:00 EST, Height/Length Dosing, 81.3, kg, 11/27/23 13:36:00 EST, Weight Dosing 2. Testicular pain (N50.819: Testicular pain, unspecified) Likely 2/2 strain. - Will use medrol - Urology referral already placed Ordered: methylPREDNISolone, = 1 packet(s), Oral, As Directed, as directed on package labeling, X 6 day(s), # 21 tab(s), Refills(s) 0, Pharmacy: [facility] #[id number], 171, cm, 11/27/23 13:36:00 EST, Height/Length Dosing, 81.3, kg, 11/27/23 13:36:00 EST, Weight Dosing Orders: 1125F Pain severity quantified; pain present Advance Care Planning discussed and documented 1123F Annual alcohol misuse screening, 15 min G0442 Annual Depression Screening 15 min G0444 Body Mass Index (BMI) documented 3008F Colorectal CA screening results documented and reviewed 3017F Current tobacco non-user 1036F Depression Screening Negative 3352F Functional status assessed 1170F Influenza immunization administered or previously received 4274F Medicare Subsequent Visit G0439 Medication list documented in medical record 1159F Most recent diastolic blood pressure <80 mm Hg 3078F Patient screen for fall risk: no falls in last year or 1 fall with no injury in last year 1101F Pneumonia Vax administered or previously received 4040F Review of all meds by a prescribing practitioner or clinical pharmacist documented in EHR 1160F Systolic BP <130 mm Hg (Most Recent) 3074F Follow-up No qualifying data available Problem List/Past Medical History Ongoing Anxiety attack Benign neoplasm of sigmoid colon Body mass index (BMI) of 29.0-29.9 in adult BPH with urinary obstruction Constipation ED (erectile dysfunction) GERD without esophagitis Gout HTN (hypertension) Hypothyroid Overweight Screening for skin cancer Sigmoid diverticulosis Testicular pain Historical No qualifying data Procedure/Surgical History Colonoscopy (09/27/2023), Coronary artery stent (2016), Amputation of finger of left hand, Arthroscopy of wrist, Colonoscopy, Repair of umbilical hernia, Tonsillectomy. Medications allopurinol 300 mg Tab, 300 mg= 1 tab(s), Oral, Daily amLODIPine 5 mg Tab, 5 mg= 1 tab(s), Oral, Daily Aspirin Low Dose 81 mg oral enteric coated tablet atenolol 50 mg Tab, 50 mg= 1 tab(s), Oral, Daily atorvastatin 40 mg Tab, 40 mg= 1 tab(s), Oral, Daily Bactrim D.S. 800 mg-160 mg Tab, 1 tab(s), Oral, BID Flomax 0.4 mg Cap, 0.4 mg= 1 cap(s), Oral, Daily, Not taking lamotrigine 100 mg Tab, 100 mg= 1 tab(s), Oral, Daily levothyroxine 75 mcg (0.075 mg) Tab, 75 mcg= 1 tab(s), Oral, Daily LORazepam 0.5 mg Tab, 0.5 mg= 1 tab(s), Oral, BID Medrol Dosepack 4 mg Tab, 1 packet(s), Oral, As Directed nitroglycerin 0.4 mg sublingual Tab, 0.4 mg= 1 tab(s), SubLingual, q5min, PRN Pantoprazole [address] Tab sildenafil 100 mg Tab, 100 mg= 1 tab(s), Oral, Daily, PRN valsartan 80 mg Tab, 80 mg= 1 tab(s), Oral, Daily Allergies No Known Allergies No Known Medication Allergies Social History Alcohol Current, 1-2 times per week, 1 drinks/episode average. 2.00 drinks/episode maximum. Household alcohol concerns: No., 11/27/2023 Employment/School Retired, Highest education level: High school., 08/25/2023 Exercise Exercise duration: 20. Exercise frequency: 3-4 times/week., 08/25/2023 Home/Environment Lives with Spouse., 08/25/2023 Substance Abuse - Denies Substance Abuse, 08/25/2023 Tobacco - Denies Tobacco Use, 11/27/2023 Never (less than 100 in lifetime) Tobacco Use:. Never Smokeless Tobacco Use:. Household tobacco concerns: No., 11/27/2023 Family History Anxiety: Mother. Cardiac arrest: Father. Depression: Mother. Hypertension: Mother. Stroke: Mother. (more content not included)... [facility] Comment on above: Result Comment: Elec tronically Signed By: Fransisco DAMON, Juani Sorto\.br\Date and Time Signed: 11/27/23 13:55 EST [employer] 11-27-2023 Forms [id number] [facility] Patient Educationon 11-27-19 24 Patient Education Cardiovascular Hypertension, Adult High blood pressure (hypertension) is when the force of blood pumping through the arteries is too strong. The arteries are the blood vessels that carry blood from the heart throughout the body. Hypertension forces the heart to work harder to pump blood and may cause arteries to become narrow or stiff. Untreated or uncontrolled hypertension can lead to a heart attack, heart failure, a stroke, kidney disease, and other problems. A blood pressure reading consists of a higher number over a lower number. Ideally, your blood pressure should be below 120/80. The first ( top ) number is called the systolic pressure. It is a measure of the pressure in your arteries as your heart beats. The second ( bottom ) number is called the diastolic pressure. It is a measure of the pressure in your arteries as the heart relaxes. What are the causes? The exact cause of this condition is not known. There are some conditions that result in high blood pressure. What increases the risk? Certain factors may make you more likely to develop high blood pressure. Some of these risk factors are under your control, including: ? Smoking. ? Not getting enough exercise or physical activity. ? Being overweight. ? Having too much fat, sugar, calories, or salt (sodium) in your diet. ? Drinking too much alcohol. Other risk factors include: ? Having a personal history of heart disease, diabetes, high cholesterol, or kidney disease. ? Stress. ? Having a family history of high blood pressure and high cholesterol. ? Having obstructive sleep apnea. ? Age. The risk increases with age. What are the signs or symptoms? High blood pressure may not cause symptoms. Very high blood pressure (hypertensive crisis) may cause: ? Headache. ? Fast or irregular heartbeats (palpitations). ? Shortness of breath. ? Nosebleed. ? Nausea and vomiting. ? Vision changes. ? Severe chest pain, dizziness, and seizures. How is this diagnosed? This condition is diagnosed by measuring your blood pressure while you are seated, with your arm resting on a flat surface, your legs uncrossed, and your feet flat on the floor. The cuff of the blood pressure monitor will be placed directly against the skin of your upper arm at the level of your heart. Blood pressure should be measured at least twice using the same arm. Certain conditions can cause a difference in blood pressure between your right and left arms. If you have a high blood pressure reading during one visit or you have normal blood pressure with other risk factors, you may be asked to: ? Return on a different day to have your blood pressure checked again. ? Monitor your blood pressure at home for 1 week or longer. If you are diagnosed with hypertension, you may have other blood or imaging tests to help your health care provider understand your overall risk for other conditions. How is this treated? This condition is treated by making healthy lifestyle changes, such as eating healthy foods, exercising more, and reducing your alcohol intake. You may be referred for counseling on a healthy diet and physical activity. Your health care provider may prescribe medicine if lifestyle changes are not enough to get your blood pressure under control and if: ? Your systolic blood pressure is above 130. ? Your diastolic blood pressure is above 80. Your personal target blood pressure may vary depending on your medical conditions, your age, and other factors. Follow these instructions at home: Eating and drinking ? Eat a diet that is high in fiber and potassium, and low in sodium, added sugar, and fat. An example of this eating plan is called the DASH diet. DASH stands for Dietary Approaches to Stop Hypertension. To eat this way: ? Eat plenty of fresh fruits and vegetables. Try to fill one half of your plate at each meal with fruits and vegetables. ? Eat whole grains, such as whole-wheat pasta, brown rice, or whole-grain bread. Fill about one fourth of your plate with whole grains. ? Eat or drink low-fat dairy products, such as skim milk or low-fat yogurt. ? Avoid fatty cuts of meat, processed or cured meats, and poultry with skin. Fill about one fourth of your plate with lean proteins, such as fish, chicken without skin, beans, eggs, or tofu. ? Avoid pre-made and processed foods. These tend to be higher in sodium, added sugar, and fat. ? Reduce your daily sodium intake. Many people with hypertension should eat less than 1,500 mg of sodium a day. ? Do not drink alcohol if: ? Your health care provider tells you not to drink. ? You are , may be , or are planning to become . ? If you drink alcohol: ? Limit how much you have to: ? 0?1 drink a day for women. ? 0?2 drinks a day for men. ? Know how much alcohol is in your drink. In the [place] one drink equals one 12 oz bottle of beer (355 mL), one 5 oz glass of wine (148 mL), or one 1? oz glass (more content not included)... Normal [facility] Family Medicine Office/Clini c Noteon 11-23-2023 Family Medicine Office/Clinic Note HPI Staff Gareth is a 73 year old male presenting for acute visit Acute: lower abd pain and testicular pain Abdominal Pain: Duration: 11 days Location: lower abdomen, testicles Quality/Character: not addressed Severity: mild flu: due History of Present Illness Gareth Menjivar is a 73-year-old male who presents today for an evaluation of testicular pain. The patient reports that he has been experiencing pain in the suprapubic region for 2 days. He thought he had a bladder infection after 2 days of pain. He took an at-home test at the drug store to the for infection. The pain started 20 hours after having a sexual intercourse with his , along with some abdominal pain. He states that he is not in pain right now. He has constant pain depending of what he is doing and sleeping position. The patient is aggravated with side-lying position and relieves with supine position. He states that he quit wearing underwear to relieve the pressure. Physical Exam Vitals & Measurements HR: 74(Peripheral) BP: 140/76 SpO2: 98% HT: 65 in HT: 166 cm WT: 82.1 kg WT: 180.62 lb BMI: 29.79 General: alert, no acute distress Extremities: no deformity, no trauma Neurological: oriented x 4, LOC appropriate for age, CN II-XII intact, motor strength equal & normal bilaterally, speech normal Abdomen: soft, nontender, nondistended. Genitourinary: Testicles are within normal limits. Minimal discomfort with palpation of the right testicle. Minimal pain with palpation to the suprapubic area. No hernias felt. Assessment/Plan 1. Testicular pain (N50.819: Testicular pain, unspecified) Unsure if this is related to epididymitis or just trauma. We will try Bactrim DS twice a day for 10 days. If patient has no improvement by 11/27/2023, we will refer to urology. If pain gets worse, patient is to go to the ER. Patient understands and this has been discussed in detail. We will try to reach out to the urologist for further help with this. 2. BMI 29.0-29.9,adult (Z68.29: Body mass index [BMI] 29.0-29.9, adult) BMI education given. 3. Non-smoker (Z78.9: Other specified health status) Please continue not to smoke. Portions of this record may have been created with voice recognition artificial intelligence software, specifically [employer], [employer] and or [employer]. Substitutions may have occurred due to the inherent limitations of voice recognition and artificial intelligence software. ATTESTATION: Documentation services were performed after patient or guardian consented to allow [employer] to record this visit. FAUSTINO client account specialist and provider reviewed before signing. FAUSTINO: Cori Nieto Follow-up No qualifying data available Patient Education BMI for Adults Problem List/Past Medical History Ongoing Anxiety attack Benign neoplasm of sigmoid colon Body mass index (BMI) of 29.0-29.9 in adult BPH with urinary obstruction Constipation ED (erectile dysfunction) GERD without esophagitis Gout HTN (hypertension) Hypothyroid Overweight Screening for skin cancer Sigmoid diverticulosis Testicular pain Historical No qualifying data Procedure/Surgical History Colonoscopy (09/27/2023), Coronary artery stent (2016), Amputation of finger of left hand, Arthroscopy of wrist, Colonoscopy, Repair of umbilical hernia, Tonsillectomy. Medications allopurinol 300 mg Tab, 300 mg= 1 tab(s), Oral, Daily amLODIPine 5 mg Tab, 5 mg= 1 tab(s), Oral, Daily Aspirin Low Dose 81 mg oral enteric coated tablet atenolol 50 mg Tab, 50 mg= 1 tab(s), Oral, Daily atorvastatin 40 mg Tab, 40 mg= 1 tab(s), Oral, Daily Bactrim D.S. 800 mg-160 mg Tab, 1 tab(s), Oral, BID Flomax 0.4 mg Cap, 0.4 mg= 1 cap(s), Oral, Daily, Not taking lamotrigine 100 mg Tab, 100 mg= 1 tab(s), Oral, Daily levothyroxine 75 mcg (0.075 mg) Tab, 75 mcg= 1 tab(s), Oral, Daily LORazepam 0.5 mg Tab, 0.5 mg= 1 tab(s), Oral, BID nitroglycerin 0.4 mg sublingual Tab, 0.4 mg= 1 tab(s), SubLingual, q5min, PRN Pantoprazole [address] Tab sildenafil 100 mg Tab, 100 mg= 1 tab(s), Oral, Daily, PRN valsartan 80 mg Tab, 80 mg= 1 tab(s), Oral, Daily Allergies No Known Allergies No Known Medication Allergies Social History Alcohol Current, 1-2 times per week, 1 drinks/episode average. 2.00 drinks/episode maximum., 08/25/2023 Employment/School Retired, Highest education level: High school., 08/25/2023 Exercise Exercise duration: 20. Exercise frequency: 3-4 times/week., 08/25/2023 Home/Environment Lives with Spouse., 08/25/2023 Substance Abuse - Denies Substance Abuse, 08/25/2023 Tobacco Never (less than 100 in lifetime) Tobacco Use:. Never Smokeless Tobacco Use:., 11/21/2023 Family History Anxiety: Mother. Cardiac arrest: Father. Depression: Mother. Hypertension: Mother. Stroke: Mother. Immunizations Vaccine Date Status Comments influenza virus vaccine, inactivated - Not Given Patient Refuses SARS-CoV-2 (more content not included)... Normal [facility] Comment on above: Result Comment: Elec tronically Signed By: Juani Bishop MD\.br\Date and Time Signed: 11/23/23 11:23 EST\.br\Electronically Co-Signed By: Pavan Sanz\.br\Date and Time Co-Signed: 11/21/23 18:53 EST Ambulatory Visit Summaryon 0 11-21-2023 Ambulatory Visit Summary GARETH MENJIVAR :1950 Visit Date:11/21/2023 Ambulatory Visit Instructions Your Diagnosis Testicular pain BMI 29.0-29.9,adult Non-smoker Your Care Team Attending Physician - Juani Bishop MD Primary Care Physician - Juani Bishop MD This Is Your Medications List sulfamethoxazole-tri methoprim (Bactrim D.S. 800 mg-160 mg Tab) Contact prescribing physician if questions or concerns allopurinol (allopurinol 300 mg Tab) amlodipine (amLODIPine 5 mg Tab) aspirin (Aspirin Low Dose 81 mg oral enteric coated tablet) atenolol (atenolol 50 mg Tab) atorvastatin (atorvastatin 40 mg Tab) lamotrigine (lamotrigine 100 mg Tab) levothyroxine (levothyroxine 75 mcg (0.075 mg) Tab) lorazepam (LORazepam 0.5 mg Tab) nitroglycerin (nitroglycerin 0.4 mg sublingual Tab) pantoprazole (Pantoprazole [address] Tab) sildenafil (sildenafil 100 mg Tab) tamsulosin (Flomax 0.4 mg Cap) valsartan (valsartan 80 mg Tab) Procedures Performed Colonoscopy (09/27/2023), Coronary artery stent (2015), Amputation of finger of left hand, Arthroscopy of wrist, Colonoscopy, Repair of umbilical hernia, Tonsillectomy. Discharge Vitals Heart Rate (Peripheral) 74 Blood Pressure 140/76 Height 166 cm Height 65 in Weight 82.1 kg Weight 180.62 lb BMI 29.79 What to do next Scheduled Follow-Up Appointments Monday 1:00 PM EST With: Where: [facility] Invalid Interpretation Code [address] [place] [address]- \.br\ 2023 9:15 AM EDT \.br\ With: Juani Bsihop MD\.br\ Where: [facility] Patient Educationon 11-21-19 24 Patient Education Nutrition BMI for Adults What is BMI? Body mass index (BMI) is a number that is calculated from a person's weight and height. BMI can help estimate how much of a person's weight is composed of fat. BMI does not measure body fat directly. Rather, it is an alternative to procedures that directly measure body fat, which can be difficult and expensive. BMI can help identify people who may be at higher risk for certain medical problems. What are BMI measurements used for? BMI is used as a screening tool to identify possible weight problems. It helps determine whether a person is obese, overweight, a healthy weight, or underweight. BMI is useful for: ? Identifying a weight problem that may be related to a medical condition or may increase the risk for medical problems. ? Promoting changes, such as changes in diet and exercise, to help reach a healthy weight. BMI screening can be repeated to see if these changes are working. How is BMI calculated? BMI involves measuring your weight in relation to your height. Both height and weight are measured, and the BMI is calculated from those numbers. This can be done either in [place] or metric measurements. Note that charts and online BMI calculators are available to help you find your BMI quickly and easily without having to do these calculations yourself. To calculate your BMI in [place] measurements: 1. Measure your weight in pounds (lb). 2. Multiply the number of pounds by 703. ? For example, for a person who weighs 180 lb, multiply that number by 703, which equals 126,540. 3. Measure your height in inches. Then multiply that number by itself to get a measurement called inches squared. ? For example, for a person who is 70 inches tall, the inches squared measurement is 70 inches x 70 inches, which equals 4,900 inches squared. 4. Divide the total from step 2 (number of lb x 703) by the total from step 3 (inches squared): 126,540 ? 4,900 = 25.8. This is your BMI. To calculate your BMI in metric measurements: 1. Measure your weight in kilograms (kg). 2. Measure your height in meters (m). Then multiply that number by itself to get a measurement called meters squared. ? For example, for a person who is 1.75 m tall, the meters squared measurement is 1.75 m x 1.75 m, which is equal to 3.1 meters squared. 3. Divide the number of kilograms (your weight) by the meters squared number. In this example: 70 ? 3.1 = 22.6. This is your BMI. What do the results mean? BMI charts are used to identify whether you are underweight, normal weight, overweight, or obese. The following guidelines will be used: ? Underweight: BMI less than 18.5. ? Normal weight: BMI between 18.5 and 24.9. ? Overweight: BMI between 25 and 29.9. ? Obese: BMI of 30 or above. Keep these notes in mind: ? Weight includes both fat and muscle, so someone with a muscular build, such as an athlete, may have a BMI that is higher than 24.9. In cases like these, BMI is not an accurate measure of body fat. ? To determine if excess body fat is the cause of a BMI of 25 or higher, further assessments may need to be done by a health care provider. ? BMI is usually interpreted in the same way for men and women. Where to find more information For more information about BMI, including tools to quickly calculate your BMI, go to these websites: ? Centers for Disease Control and Prevention: www.cdc.gov ? [place] Heart Association: www.heart.org ? National Heart, Lung, and Blood [place]: www.nhlbi.nih.gov Summary ? Body mass index (BMI) is a number that is calculated from a person's weight and height. ? BMI may help estimate how much of a person's weight is composed of fat. BMI can help identify those who may be at higher risk for certain medical problems. ? BMI can be measured using Prydeinig measurements or metric measurements. ? BMI charts are used to identify whether you are underweight, normal weight, overweight, or obese. This information is not intended to replace advice given to you by your health care provider. Make sure you discuss any questions you have with your health care provider. Document Revised: 07/22/2020 Document Reviewed: 05/29/2020 [employer] Patient Education ? 2022 [employer] Normal [facility] CHEMISTRYOrdered By: SYSTEM SYSTEM on 08-25-2023 Albumin [Mass/Vol] 4.5 g/dL Normal 3.3 - 5.0 gm/dL F [facility] Remisol Albumin/Globulin [Mass ratio] 1.8 {ratio} Normal 1.1 - 2.2 [facility] ALP [Catalytic activity/Vol] 74 [iU]/d Normal 21 - 98 Int._Unit/L [facility] ALT No additional P-5'-P [Catalytic activity/Vol] 26 [iU]/d Normal 6 - 46 Int._Unit/L [facility] Anion gap [Moles/Vol] 13 mmol/L Normal 6 - 16 mEq/L [facility] AST [Catalytic activity/Vol] 27 [iU]/d Normal 5 - 43 Int._Unit/L [facility] Bilirubin [Mass/Vol] 0.8 mg/dL Normal 0.0 - 1.1 mg/dL [facility] Calcium [Mass/Vol] 9.6 mg/dL Normal 8.9 - 11.1 mg/dL [facility] Chloride [Moles/Vol] 104 mmol/L Normal 101 - 111 mmol/ L [facility] Cholesterol [Mass/Vol] 101 mg/dL Low 120 - 200 mg/dL [facility] Cholesterol in HDL [Mass/Vol] 37 mg/dL Invalid Interpretation Code [facility] Comment on above: Interpretive Data: H DL > or equal to 60 mg/dL: Low cardiovascular risk HDL < 40 mg/dL : High cardiovascular risk Cholesterol in LDL [Mass/Vol] 27 mg/dL Normal <=129mg/dL [facility] Cholesterol in VLDL [Mass/Vol] 17 mg/dL Normal 7 - 40 mg/dL [facility] CO2 [Moles/Vol] 24 mmol/L Normal 21 - 31 mmol/L [facility] Creatinine [Mass/Vol] 0.9 mg/dL Normal 0.5 - 1.3 mg/dL [facility] GFR/1.73 sq M.predicted among non-blacks MDRD (S/P/Bld) [Vol rate/Area] 92 mL/min/1.73 m2 Normal >=59mL/min/1.73 m2 [facility] Chem S Comment on above: Interpretive Data: C hronic kidney disease could be indicated at eGFR's of less than 60 mL/min/1.73m2. Kidney failure is indicated at less than 15 mL/min/1.73m2. Globulin (S) [Mass/Vol] 2.5 g/dL Normal 1.4 - 4.0 gm/dL [facility] Glucose [Mass/Vol] 100 mg/dL Normal 55 - 199 mg/dL [facility] Remisol Comment on above: Interpretive Data: I f this glucose result represents a fasting glucose, interpretation should refer to the following reference range: 55-99 mg/dL Potassium [Moles/Vol] 4.4 mmol/L Normal 3.5 - 5.3 mmol/L [facility] Prostate specific Ag [Mass/Vol] 1.4 ng/mL Normal 0.1 - 3.5 ng/mL [facility] Comment on above: Interpretive Data: T he concentration of PSA determined by different manufacturers can vary due to differences in assay methods and reagent specificity. Values obtained from different assay methods cannot be used interchangeably. The methodology used for this result was chemiluminescence using [employer]'s Access Hybritech PSA reagent. Protein [Mass/Vol] 7.0 g/dL Normal 6.0 - 7.8 gm/dL F [facility] Sodium [Moles/Vol] 137 mmol/L Normal 135 - 145 mmol/L [facility] Triglyceride [Mass/Vol] 85 mg/dL Normal <=149mg/dL [facility] TSH Qn 1.15 m[IU]/L Normal 0.34 - 5.60 mcIU/mL [facility] Remisol Urate [Mass/Vol] 4.1 mg/dL Normal 2.2 - 7.4 mg/dL [facility] Remisol Urea nitrogen [Mass/Vol] 18 mg/dL Normal 5 - 21 mg/dL [facility] Urea nitrogen/Creatinine [Mass ratio] 20 mg/mg Normal 10 - 20 [facility] HEMATOLOGYOrdered By: SYSTEM SYSTEM on 08-25-2023 Basophils/100 WBC (Bld) 0.6 % Normal 0.0 - 2.0 % [facility]eAutoSS Basophils/Leukocytes Auto (Bld) [Pure # fraction] 0.0 E9/L Normal 0.0 - 0.2 E9/L [facility]eAutoSS Eosinophils/100 WBC (Bld) 0.9 % Normal 0.0 - 8.0 % [facility]eAutoSS Eosinophils/Leukocyt es Auto (Bld) [Pure # fraction] 0.0 E9/L Normal 0.0 - 0.5 E9/L [facility]eAuto[facility] Lymphocytes/100 WBC (Bld) 30.4 % Normal 14.0 - 50.0 % [facility] HemeAutoSS Lymphocytes/Leukocyt es Auto (Bld) [Pure # fraction] 1.5 E9/L Normal 1.0 - 4.0 E9/L [facility]eAutoSS Monocytes/100 WBC (Bld) 8.1 % Normal 4.0 - 14.0 % [facility] HemeAutoSS Monocytes/Leukocytes Auto (Bld) [Pure # fraction] 0.4 E9/L Normal 0.2 - 1.0 E9/L [facility]eAutoSS Neutrophils/100 WBC (Bld) 60.0 % Normal 36.0 - 75.0 % [facility] HemeAutoSS Neutrophils/Leukocyt es Auto (Bld) [Pure # fraction] 3.1 E9/L Normal 2.0 - 7.5 E9/L [facility] HemeAutoSS HEMATOLOGYOrdered By: Halle Zapien on 08-25-2023 Erythrocyte distribution width (RBC) [Ratio] 13.4 % Normal 10.9 - 14.2 % [facility]eAutoSS Hematocrit (Bld) [Volume fraction] 37.6 % Low 37.7 - 49.0 % [facility] Hemoglobin (Bld) [Mass/Vol] 12.6 g/dL Low 13.5 - 17.5 gm/dL [facility] MCH (RBC) [Entitic mass] 30.9 pg Normal 27.0 - 34.0 pg [facility] MCHC (RBC) [Mass/Vol] 33.5 g/dL Normal 31.4 - 36.0 gm/dL [facility]SS MCV (RBC) [Entitic vol] 92.2 fL Normal 80.0 - 100.0 fL [facility]eAutoSS Platelet mean volume (Bld) [Entitic vol] 9.1 fL Normal 6.4 - 10.8 fL [facility] HemeAutoSS Platelets (Bld) [#/Vol] 180.0 E9/L Normal 150.0 - 500.0 E9/L [facility]eAutoSS Comment on above: Result Comment: Unab le to obtain accurate platelet count due to platelet clumping. Platelet count estimate appears normal on slide. RBC (Bld) [#/Vol] 4.1 E12/L Low 4.3 - 5.9 E12/L [facility] HemeAutoSS WBC corrected for nucl RBC Auto (Bld) [#/Vol] 5.1 E9/L Normal 4.0 - 11.0 E9/L [facility] Jason Office Visit (Cardiology)on 06-27-2023 Follow-up visit Diagnoses/Problems Assessed Atherosclerosis of coronary artery (414.00) (I25.10) Status post coronary angioplasty (V45.82) (Z98.61) Benign essential hypertension (401.1) (I10) Mixed hyperlipidemia (272.2) (E78.2) Overweight with body mass index (BMI) of 27 to 27.9 in adult (278.02,V85.23) (E66.3,Z68.27) Never a smoker Hypothyroidism (244.9) (E03.9) Gout (274.9) (M10.9) Orders Atherosclerosis of coronary artery Renew: Aspirin 81 MG Oral Tablet Delayed Release; TAKE 1 TABLET BY MOUTH DAILY Atherosclerosis of coronary artery, Benign essential hypertension Renew: Valsartan 80 MG Oral Tablet; TAKE 1 TABLET DAILY Benign essential hypertension Renew: Atenolol 50 MG Oral Tablet; TAKE 1 TABLET BY MOUTH EVERY DAY Overweight with body mass index (BMI) of 27 to 27.9 in adult Healthy Weight Tips; Status:Complete - Retrospective Authorization; Done: [id number] Some eating tips that can help you lose weight.; Status:Complete - Retrospective Authorization; Done: [id number] SocHx: Never a smoker Tobacco Use Screening; Status:Complete; Done: [id number] Patient Instructions Please bring all medicines, vitamins, and herbal supplements with you when you come to the office. Prescriptions will not be filled unless you are compliant with your follow up appointments or have a follow up appointment scheduled as per instruction of your physician. Refills should be requested at the time of your visit. Follow up in 9 months Same meds Chief Complaint GARETH MENJIVAR is being seen for a 9 month follow-up of. Patient is in the office for follow-up for the problems noted below with no events noted since he was last seen in the office 9 months ago. He maintains active lifestyle and denies any symptoms of angina palpitations or dyspnea and no side effect of medications. His blood work from last fall was reviewed and he is scheduled to have another blood work coming up in September. His weight is slightly above target but the rest of the examination was unremarkable. ASSESSMENT AND PLAN: 1. Coronary artery disease status post angioplasty to the RCA and the marginal in 2015 with no indication of recurrent disease. At the present time, no cardiac investigations will be necessary. Encouraged the patient to stay physically active and keep taking his medications as prescribed. 2. Hyperlipidemia, on medical therapy. Blood work is scheduled in September 2023. 3. Overweight. Encouraged the patient for more activities to bring his weight under control., Target weight is 160 pounds 4. Hypertension, presently under control. No changes are needed. 5. Gout on allopurinol in remission and controlled. 6. Hypothyroidism on replacement therapy under control. Karan Hernandes MD, [facility] Surgical History Problems History of Colonoscopy History of Tonsillectomy History of Wrist surgery Current Meds Medication NameInstruction Allopurinol 300 MG Oral TabletTAKE 1 TABLET DAILY. amLODIPine Besylate 5 MG Oral TabletTake 1 tablet daily Aspirin 81 MG Oral Tablet Delayed ReleaseTAKE 1 TABLET BY MOUTH DAILY Atenolol 50 MG Oral TabletTAKE 1 TABLET BY MOUTH EVERY DAY Atorvastatin Calcium 40 MG Oral TabletTake 1 tablet daily lamoTRIgine ER 100 MG Oral Tablet Extended Release 24 HourTake 1 tablet daily Levothyroxine Sodium 75 MCG Oral TabletTake 1 tablet daily Pantoprazole Sodium 40 MG Oral Tablet Delayed ReleaseTAKE 1 TABLET 30 minutes before a meal Probiotic CAPSTAKE 1 CAPSULE Daily Sildenafil Citrate 100 MG Oral TabletTAKE 1 TABLET DAILY 1 HOUR BEFORE NEEDED Valsartan 80 MG Oral TabletTAKE 1 TABLET DAILY. Allergies Medication CHANDRAKANT Inhibitors Irritability; jittery; Recorded By: Piper Javier; 02/02/2022 9:42:26 AM Social History Problems Daily caffeine consumption 16 oz of coffee daily Never a smoker No illicit drug use Rarely consumes alcohol (V49.89) (Z78.9) Review of Systems Constitutional: not feeling tired. Cardiovascular: no intermittent leg claudication and as noted in HPI. Respiratory: no cough and no shortness of breath. Gastrointestinal: no change in bowel habits and no blood in stools. Integumentary: no skin rashes. Neurological: no seizures and no frequent falls. All other systems have been reviewed and are negative for complaint. Vitals Vital Signs Recorded: [id number] 09:35AM Heart Rate62, L Radial Trexstcw114, LUE, Sitting [id number], LUE, Sitting Height5 ft 7 in [id number] lb BMI Iqccatevzo42.41 kg/m2 BSA Calculated1.91 Tobacco Useb) No PHQ-2 #1. Over the last 2 weeks have you felt down, depressed or hopeless? (If yes, answer PHQ-9 below)No PHQ-2 #2. Over the last 2 weeks have you felt little interest or pleasure in doing things? (If yes, answer PHQ-9 below)No Falls Screening (Age 18+)a) No falls within the last year Physical Exam Constitutional: alert and in no acute distress. Neck: neck is supple, symmetric, trachea midline, no masses and no thyromegaly . Pulmonary: no increa (more content not included)... Normal [employer] Tobacco Screening.on 023 Adult depression screening assessment No [facility] [employer] 250 DO Work Phone: Fall risk assessment a) No falls within the last year [facility] indeniy 250 DO Work Phone: Tobacco use status [facility] b) No [facility] [employer] nabil[employer] 250 DO Work Phone: PROF CHEM 8 (BAS METB)on Anion gap [Moles/Vol] 10.1 mmol/L Normal [facility] Comment on above: Performed By: #### B MP #### [facility] [address] [place] [address] Dr. Shira Castro Calcium [Mass/Vol] 8.8 mg/dL Normal 8.5-10.1 [facility] Comment on above: Performed By: #### B MP #### [facility] [address] [address] [address] Shira Castro Chloride [Moles/Vol] 100 mmol/L Normal 98-107 [facility] Comment on above: Performed By: #### B MP #### [facility] [address] [address] [address] Shira Castro CO2 [Moles/Vol] 29.5 mmol/L Normal 21.0-32.0 [facility] Comment on above: Performed By: #### B MP #### [facility] [address] [address] [address] Shira Castro Creatinine [Mass/Vol] 1.06 mg/dL Normal 0.70-1.30 [facility] Comment on above: Performed By: #### B MP #### [facility] [address] [address] [address] Shira Castro EGFR-AF LIBERIAN >60 Normal >=60 [facility] Comment on above: Performed By: #### B MP #### [facility] [address] [address] [address] Shira Castro EGFR-NON AF LIBERIAN >60 Normal >=60 [facility] Comment on above: Performed By: #### B MP #### [facility] [address] [id number] Dr. Shira Castro Glucose [Mass/Vol] 159 mg/dL Critically high 74-106 T [facility] Comment on above: Performed By: #### B MP #### [facility] [address] [place] [address] Dr. Shira Castro Potassium [Moles/Vol] 4.6 mmol/L Normal 3.5-5.1 [facility] Comment on above: Performed By: #### B MP #### [facility] [address] [address] [address] Shira Castro Sodium [Moles/Vol] 135 mmol/L Critically low 136-145 Th [facility] Comment on above: Performed By: #### B MP #### [facility] [address] [address] [address] Shira Castro Urea nitrogen [Mass/Vol] 13.0 mg/dL Normal 7.0-18.0 [facility] Comment on above: Performed By: #### B MP #### [facility] [address] [address] [address] Shira Castro Urea nitrogen/Creatinine [Mass ratio] 12.3 mg/mg Normal [facility] Comment on above: Performed By: #### B MP #### [facility] [address] [place] [address] Dr. Shira Castro Falls Screening (Age 18+)on 10-04-2022 Fall risk assessment a) No falls within the last year [facility] [address] DO Work Phone: Office Visit (Cardiology)on 10-04-2022 Follow-up visit Diagnoses/Problems Assessed Benign essential hypertension (401.1) (I10) Overweight with body mass index (BMI) of 27 to 27.9 in adult (278.02,V85.23) (E66.3,Z68.27) Orders Overweight with body mass index (BMI) of 27 to 27.9 in adult Healthy Weight Tips; Status:Complete; Done: 04Oct2022 Some eating tips that can help you lose weight.; Status:Complete; Done: 04Oct2022 Patient Instructions Follow up in Jun as scheduled. Cont same meds Chief Complaint GARETH MENJIVAR is being seen for hypertension. Patient is in the office for hypertension management. Since we added valsartan 80 mg daily his pressure has become under control with no side effects. His weight remains above target and was advised to bring his weight further down. No changes were made follow-up is as scheduled. Current Meds Medication NameInstruction Allopurinol 300 MG Oral TabletTAKE 1 TABLET DAILY. amLODIPine Besylate 5 MG Oral TabletTAKE 1 TABLET BY MOUTH DAILY Aspirin 81 MG Oral Tablet Delayed ReleaseTAKE 1 TABLET BY MOUTH DAILY Atenolol 50 MG Oral TabletTAKE 1 TABLET BY MOUTH EVERY DAY Atorvastatin Calcium 40 MG Oral TabletTAKE 1 TABLET BY MOUTH DAILY lamoTRIgine ER 100 MG Oral Tablet Extended Release 24 HourTake 1 tablet daily Levothyroxine Sodium 75 MCG Oral TabletTake 1 tablet daily Pantoprazole Sodium 40 MG Oral Tablet Delayed Releasetake one tablet daily 30 min before meal Probiotic CAPSTAKE 1 CAPSULE Daily Sildenafil Citrate 100 MG Oral TabletTAKE 1 TABLET DAILY 1 HOUR BEFORE NEEDED Valsartan 80 MG Oral TabletTAKE 1 TABLET DAILY. Allergies Medication CHANDRAKANT Inhibitors Irritability; jittery; Recorded By: Piper Javier; 02/02/2022 9:42:26 AM Vitals Vital Signs Recorded: 04Oct2022 09:03AM Heart Rate60, L Radial Llcefxff379, LUE, Sitting Riqfiizgc91, LUE, Sitting Height5 ft 7 in Wboquw540 lb BMI Wltruyzzml12.88 kg/m2 BSA Calculated1.92 Falls Screening (Age 18+)a) No falls within the last year Signatures Electronically signed by : Karan Hernandes MD; Oct 04 2022 9:30AM EST (Author) Normal [employer] Office Visit (Cardiology)on 09-21-2022 Follow-up visit Diagnoses/Problems Assessed Atherosclerosis of coronary artery (414.00) (I25.10) Status post coronary angioplasty (V45.82) (Z98.61) Mixed hyperlipidemia (272.2) (E78.2) Benign essential hypertension (401.1) (I10) Never a smoker Overweight with body mass index (BMI) of 27 to 27.9 in adult (278.02,V85.23) (E66.3,Z68.27) Hypothyroidism (244.9) (E03.9) Orders Atherosclerosis of coronary artery Renew: Aspirin 81 MG Oral Tablet Delayed Release; TAKE 1 TABLET BY MOUTH DAILY Atherosclerosis of coronary artery, Benign essential hypertension Start: Pantoprazole Sodium 40 MG Oral Tablet Delayed Release; take one tablet daily 30 min before meal Basic Metabolic Panel; Status:Active - Retrospective Authorization; Requested for:10Oct2022; Start: Valsartan 80 MG Oral Tablet; TAKE 1 TABLET DAILY Overweight with body mass index (BMI) of 27 to 27.9 in adult Healthy Weight Tips; Status:Complete - Retrospective Authorization; Done: 21Sep2022 Some eating tips that can help you lose weight.; Status:Complete - Retrospective Authorization; Done: 21Sep2022 SocHx: Never a smoker Tobacco Use Screening; Status:Complete; Done: 21Sep2022 Patient Instructions Please bring all medicines, vitamins, and herbal supplements with you when you come to the office. Prescriptions will not be filled unless you are compliant with your follow up appointments or have a follow up appointment scheduled as per instruction of your physician. Refills should be requested at the time of your visit. Valsartan 80 mg daily started for b/p Pantoprazole 40 mg daily Blood Pressure Follow Up In 2-3 weeks Follow up in 9 months Chief Complaint GARETH MENJIVAR is being seen for a 9 month follow-up of. Patient is in the office for follow-up for CAD. He was last seen in the office last year and interim he had 1 event few weeks ago when he had chest pain that appeared to be GERD and not cardiac in origin. He currently has no complaints except for occasional heartburn. We recommended going on pantoprazole. His pressure is slightly elevated and adjusted medication was made today. His weight has slightly increased from last visit which is addressed with the patient. His cardiac and pulm examinations were normal. Recent lab data were reviewed and all the numbers look excellent. ASSESSMENT AND PLAN: 1. Coronary artery disease status post angioplasty to the RCA and the marginal in 2016 with no indication of recurrent disease. At the present time, no cardiac investigations will be necessary. Encouraged the patient to stay physically active and keep taking his medications as prescribed. 2. Hyperlipidemia, on medical therapy. Blood work was reviewed and the results are excellent 3. Overweight. Encouraged the patient for more activities to bring his weight under control., Target weight is 160 pounds 4. Hypertension, presently not under control. Valsartan 80 mg daily is added and blood pressure check in few weeks is scheduled. 5. Symptoms of active GERD. Pantoprazole 40 mg daily is added 6. Hypothyroidism on replacement therapy under control. Karan Hernandes MD, [facility] Surgical History Problems History of Colonoscopy History of Tonsillectomy History of Wrist surgery Current Meds Medication NameInstruction Allopurinol 300 MG Oral TabletTAKE 1 TABLET DAILY. amLODIPine Besylate 5 MG Oral TabletTAKE 1 TABLET BY MOUTH DAILY Aspirin 81 MG Oral Tablet Delayed ReleaseTAKE 1 TABLET BY MOUTH DAILY Atenolol 50 MG Oral TabletTAKE 1 TABLET BY MOUTH EVERY DAY Atorvastatin Calcium 40 MG Oral TabletTAKE 1 TABLET BY MOUTH DAILY lamoTRIgine ER 100 MG Oral Tablet Extended Release 24 HourTake 1 tablet daily Levothyroxine Sodium 75 MCG Oral TabletTake 1 tablet daily Probiotic CAPSTAKE 1 CAPSULE Daily Sildenafil Citrate 100 MG Oral TabletTAKE 1 TABLET DAILY 1 HOUR BEFORE NEEDED Allergies Medication CHANDRAKANT Inhibitors Irritability; jittery; Recorded By: Piper Javier; 02/02/2022 9:42:26 AM Social History Problems Daily caffeine consumption 16 oz of coffee daily Never a smoker No illicit drug use Rarely consumes alcohol (V49.89) (Z78.9) Review of Systems Constitutional: not feeling tired. Cardiovascular: no intermittent leg claudication and as noted in HPI. Respiratory: no cough and no shortness of breath. Gastrointestinal: no change in bowel habits and no blood in stools. Integumentary: no skin rashes. Neurological: no seizures and no frequent falls. All other systems have been reviewed and are negative for complaint. Vitals Vital Signs Recorded: 21Sep2022 09:19AMRecorded: 21Sep2022 09:08AM Bagixhne863, LUE, Lcmmgvp150, LUE, Sitting Ykahashlc62, LUE, Qfiltcf66, LUE, Sitting Heart Rate80, L Radial Height5 ft 7 in Clxqbz171 lb BMI Knvpawgzaz79.72 kg/m2 BSA Calculated1.92 Tobacco Useb) No PHQ-2 #1. Over the last 2 weeks have you felt down, depressed or hopeless? (If yes, answer PHQ-9 below)No PHQ-2 #2. Over the last 2 weeks phelan (more content not included)... Normal [employer] Tobacco Screening.on 022 Adult depression screening assessment No [facility] [employer] 250 DO Work Phone: Fall risk assessment a) No falls within the last year [facility] [employer] 250 DO Work Phone: Tobacco use status [facility]PH[facility] b) No [facility] [employer] 250 DO Work Phone: CBC AUTO DIFFon 09-09-2022 BASO # 0.1 103/ul Normal 0.0-0.1 [facility] Comment on above: Performed By: #### C BC #### [facility] [address] [place] [address] Dr. Shira Castro Basophils/100 WBC (Bld) 0.9 % Normal 0.2-2.0 [facility] Comment on above: Performed By: #### C BC #### [facility] [address] [address] [address] Shira Castro EO # 0.1 103/ul Normal 0.0-0.7 [facility] Comment on above: Performed By: #### C BC #### [facility] [address] [address] [address] Shira Castro Eosinophils/100 WBC (Bld) 1.6 % Normal 0.9-7.0 [facility] Comment on above: Performed By: #### C BC #### [facility] [address] [place] [address] Dr. Shira Castro Erythrocyte distribution width (RBC) [Ratio] 12.1 % Normal 11.0-15.0 [facility] Comment on above: Performed By: #### C BC #### [facility] [address] [address] [address] Shira Castro Hematocrit (Bld) [Volume fraction] 40.1 % Critically low 42.0-54.0 [facility] Comment on above: Performed By: #### C BC #### [facility] [address] [address] [address] Shira Castro Hemoglobin (Bld) [Mass/Vol] 13.5 g/dL Critically low 14.0-18.0 [facility] Comment on above: Performed By: #### C BC #### [facility] [address] [place] [address] Dr. Shira Castro IG # 0.04 10e3/ul Critically high 0.00-0.03 [facility] Comment on above: Performed By: #### C BC #### [facility] [address] [place] [address] Dr. Shira Castro IG % 0.7 % Critically high 0.0-0.5 [facility] Comment on above: Performed By: #### C BC #### [facility] [address] [place] [address] Dr. Shira Castro LYMPH # 1.8 103/ul Normal 1.2-3.8 [facility] Comment on above: Performed By: #### C BC #### [facility] [address] [place] [address] Dr. Shira Castro Lymphocytes/100 WBC (Bld) 32.9 % Normal 20.5-60.0 [facility] Comment on above: Performed By: #### C BC #### [facility] [address] [place] [address] Dr. Shira Castro MANUAL DIFF REQ NO Normal [facility] Comment on above: Performed By: #### C BC #### [facility] [address] [place] [address] Dr. Shira Castro MCH (RBC) [Entitic mass] 30.7 pg Normal 25.9-34.0 [facility] Comment on above: Performed By: #### C BC #### [facility] [address] [address] [address] Shira Castro MCHC (RBC) [Mass/Vol] 33.7 g/dL Normal 29.9-35.2 [facility] Comment on above: Performed By: #### C BC #### [facility] [address] [address] [address] Shira Castro MCV (RBC) [Entitic vol] 91.1 fL Normal 80.0-94.0 [facility] Comment on above: Performed By: #### C BC #### [facility] [address] [place] [address] Dr. Shira Castro MONO # 0.5 103/ul Normal 0.3-0.8 [facility] Comment on above: Performed By: #### C BC #### [facility] [address] [place] [address] Dr. Shira Castro Monocytes/100 WBC (Bld) 9.9 % Normal 1.7-12.0 [facility] Comment on above: Performed By: #### C BC #### [facility] [address] [place] [address] Dr. Shira Castro NEUT # 3.0 103/ul Normal 1.4-6.5 [facility] Comment on above: Performed By: #### C BC #### [facility] [address] [place] [address] Dr. Shira Castro Neutrophils/100 WBC (Bld) 54.0 % Normal 43.0-75.0 [facility] Comment on above: Performed By: #### C BC #### [facility] [address] [place] [address] Dr. Shira Castro Platelet mean volume (Bld) [Entitic vol] 10.6 fL Normal 9.5-13.5 [facility] Comment on above: Performed By: #### C BC #### [facility] [address] [place] [address] Dr. Shira Castro PLT 120 103/ul Critically low 150-450 [facility] Comment on above: Performed By: #### C BC #### [facility] [address] [place] [address] Dr. Shira Castro RBC 4.40 106/ul Critically low 4.70-6.10 [facility] Comment on above: Performed By: #### C BC #### [facility] [address] [place] [address] Dr. Shira Castro WBC 5.5 103/ul Normal 4.0-11.0 [facility] Comment on above: Performed By: #### C BC #### [facility] [address] [place] [address] Dr. Shira Castro LIPID PROFILEon 09-09-2022 CHOL-HDL RATIO NORM SEE BELOW Normal [facility] Comment on above: Result Comment: 3.3 - 4.4 LOW RISK 4.4 - 7.1 AVERAGE RISK 7.1 - 11.0 MODERATE RISK >11.0 HIGH RISK Performed By: #### C MP, T4, TSH, LIPID, URIC #### [facility] [address] [place] [address] Dr. Shira Castro Cholesterol [Mass/Vol] 129 mg/dL Normal <=200 [facility] Comment on above: Performed By: #### C MP, T4, TSH, LIPID, URIC #### [facility] [address] [place] [address] Dr. Shira Castro Cholesterol in HDL [Mass/Vol] 44 mg/dL Normal 40-60 [facility] Comment on above: Performed By: #### C MP, T4, TSH, LIPID, URIC #### [facility] [address] [place] [address] Dr. Shira Castro Cholesterol in LDL [Mass/Vol] 61.6 mg/dL Normal [facility] Comment on above: Performed By: #### C MP, T4, TSH, LIPID, URIC #### [facility] [address] [place] [address] Dr. Shira Castro Cholesterol.total/Ch olesterol in HDL [Mass ratio] 2.9 {ratio} Normal [facility] Comment on above: Performed By: #### C MP, T4, TSH, LIPID, URIC #### [facility] [address] [place] [address] Dr. Shira Castro HDL NORMAL > or = 60 mg/dl - LOW CARDIOVASCULAR RISK <40 mg/dl - HIGH CARDIOVASCULAR RISK Normal [facility] Comment on above: Performed By: #### C MP, T4, TSH, LIPID, URIC #### [facility] [address] [address] [address] Shira Castro LDL CALC NORMAL SEE BELOW Normal [facility] Comment on above: Result Comment: <100 mg/dl OPTIMAL 100 - 129 mg/dl NEAR OR ABOVE OPTIMAL 130 - 159 mg/dl BORDERLINE HIGH 160 - 189 mg/dl HIGH >190 mg/dl VERY HIGH Performed By: #### C MP, T4, TSH, LIPID, URIC #### [facility] [address] [address] [address] Shira Castro Triglyceride [Mass/Vol] 117 mg/dL Normal <=150 [facility] Comment on above: Performed By: #### C MP, T4, TSH, LIPID, URIC #### [facility] [address] [place] [address] Dr. Shira Castro VLDL CALC 23.4 mg/dL Normal [facility] Comment on above: Performed By: #### C MP, T4, TSH, LIPID, URIC #### [facility] [address] [place] [address] Dr. Shira Castro PROF 14(COMP METB)on 022 Albumin [Mass/Vol] 4.4 g/dL Normal 3.4-5.0 [facility] Comment on above: Performed By: #### C MP, T4, TSH, LIPID, URIC #### [facility] [address] [place] [address] Dr. Shira Castro Albumin/Globulin [Mass ratio] 1.6 {ratio} Normal [facility] Comment on above: Performed By: #### C MP, T4, TSH, LIPID, URIC #### [facility] [address] [place] [address] Dr. Shira Castro ALP [Catalytic activity/Vol] 83 U/L Normal 46-116 [facility] Comment on above: Performed By: #### C MP, T4, TSH, LIPID, URIC #### [facility] [address] [place] [address] Dr. Shira Castro ALT [Catalytic activity/Vol] 34 U/L Normal 16-63 [facility] Comment on above: Performed By: #### C MP, T4, TSH, LIPID, URIC #### [facility] [address] [place] [address] Dr. Shira Castro Anion gap [Moles/Vol] 12.6 mmol/L Normal [facility] Comment on above: Performed By: #### C MP, T4, TSH, LIPID, URIC #### [facility] [address] [place] [address] Dr. Shira Castro AST [Catalytic activity/Vol] 18 U/L Normal 15-37 [facility] Comment on above: Performed By: #### C MP, T4, TSH, LIPID, URIC #### [facility] [address] [place] [address] Dr. Shira Castro Bilirubin [Mass/Vol] 0.8 mg/dL Normal 0.2-1.0 [facility] Comment on above: Performed By: #### C MP, T4, TSH, LIPID, URIC #### [facility] [address] [place] [address] Dr. Shira Castro Calcium [Mass/Vol] 8.8 mg/dL Normal 8.5-10.1 [facility] Comment on above: Performed By: #### C MP, T4, TSH, LIPID, URIC #### [facility] [address] [place] [address] Dr. Shira Castro Chloride [Moles/Vol] 101 mmol/L Normal 98-107 [facility] Comment on above: Performed By: #### C MP, T4, TSH, LIPID, URIC #### [facility] [address] [place] [address] Dr. Shira Castro CO2 [Moles/Vol] 28.0 mmol/L Normal 21.0-32.0 [facility] Comment on above: Performed By: #### C MP, T4, TSH, LIPID, URIC #### [facility] [address] [place] [address] Dr. Shira Castro Creatinine [Mass/Vol] 1.02 mg/dL Normal 0.70-1.30 [facility] Comment on above: Performed By: #### C MP, T4, TSH, LIPID, URIC #### [facility] [address] [place] [address] Dr. Shira Castro EGFR-AF LIBERIAN >60 Normal >=60 [facility] Comment on above: Performed By: #### C MP, T4, TSH, LIPID, URIC #### [facility] [address] [address] [address] Shira Castro EGFR-NON AF LIBERIAN >60 Normal >=60 [facility] Comment on above: Performed By: #### C MP, T4, TSH, LIPID, URIC #### [facility] [address] [place] [address] Dr. Shira Castro Globulin (S) [Mass/Vol] 2.8 g/dL Normal [facility] Comment on above: Performed By: #### C MP, T4, TSH, LIPID, URIC #### [facility] [address] [place] [address] Dr. Shira Castro Glucose [Mass/Vol] 103 mg/dL Normal 74-106 [facility] Comment on above: Performed By: #### C MP, T4, TSH, LIPID, URIC #### [facility] [address] [place] [address] Dr. Shira Castro Potassium [Moles/Vol] 4.6 mmol/L Normal 3.5-5.1 [facility] Comment on above: Performed By: #### C MP, T4, TSH, LIPID, URIC #### [facility] [address] [place] [address] Dr. Shira Castro Protein [Mass/Vol] 7.2 g/dL Normal 6.4-8.2 [facility] Comment on above: Performed By: #### C MP, T4, TSH, LIPID, URIC #### [facility] [address] [place] [address] Dr. Shira Castro Sodium [Moles/Vol] 137 mmol/L Normal 136-145 [facility] Comment on above: Performed By: #### C MP, T4, TSH, LIPID, URIC #### [facility] [address] [place] [address] Dr. Shira Castro Urea nitrogen [Mass/Vol] 14.0 mg/dL Normal 7.0-18.0 [facility] Comment on above: Performed By: #### C MP, T4, TSH, LIPID, URIC #### [facility] [address] [place] [address] Dr. Shira Castro Urea nitrogen/Creatinine [Mass ratio] 13.7 mg/mg Normal [facility] Comment on above: Performed By: #### C MP, T4, TSH, LIPID, URIC #### [facility] [address] [place] [address] Dr. Shira Castro T4on 09-09-2022 T4 [Mass/Vol] 7.80 ug/dL Normal 4.50-12.10 [facility] Comment on above: Performed By: #### C MP, T4, TSH, LIPID, URIC #### [facility] [address] [place] [address] Dr. Shira Castro TSHon 09-09-2022 TSH 2.264 uIU/mL Normal 0.358-3.740 [facility] Comment on above: Performed By: #### C MP, T4, TSH, LIPID, URIC #### [facility] [address] [place] [address] Dr. Shira Castro URIC ACID SERUMon 09-09-2022 Urate [Mass/Vol] 4.3 mg/dL Normal 3.5-7.2 [facility] Comment on above: Performed By: #### C MP, T4, TSH, LIPID, URIC #### [facility] [address] [place] [address] Dr. Shira Castro ALT (SGPT)on 11-21-2017 Alanine aminotransferase (ALT) 36 U/L Normal 10-52 [facility] Comment on above: Performed By: #### 1 [id number] ####[facility] [address] [place] [address] AST (SGOT)on 11-21-2017 Aspartate aminotransferase (AST) 29 U/L Normal 13-39 [facility] Comment on above: Performed By: #### 1 [id number] ####[facility] [address] [place] [address] Creatinineon 11-21-2017 Creatinine 0.98 mg/dL Normal 0.50-1.30 [facility] Comment on above: Performed By: #### 1 [id number] ####[facility] [address] [place] [address] eGFR (MDRD) mL/min/{1.73_m2} Normal [facility] Comment on above: Result Comment: Inte rpretation for Chronic Kidney Disease:Stages 1&2 >60 Healthy or potential kidney damage.Mild decrease of GFR.Stage 3 30-59 Moderate decrease of GFR.Stage 4 15-29 Severe decrease of GFR.Stage 5 <15 Kidney failure or on dialysis. Performed By: #### 1 [id number] ####[facility] [id number] [place] [address] Electrolyte Panelon 11-21-19 18 Anion gap 13 mmol/L Normal 10-20 [facility] Comment on above: Performed By: #### 1 [id number] ####[facility] [address] [place] [address] Bicarbonate (HCO3) 27 mmol/L Normal 21-32 [facility] Comment on above: Performed By: #### 1 [id number] ####[facility] [address] [place] [address] Chloride 102 mmol/L Normal 98-107 [facility] Comment on above: Performed By: #### 1 [id number] ####[facility] [address] [place] [address] Potassium molar conc 4.2 mmol/L Normal 3.5-5.1 [facility] Comment on above: Performed By: #### 1 [id number] ####[facility] [id number] [place] [address] Sodium 138 mmol/L Normal 136-145 [facility] Comment on above: Performed By: #### [id number] ####[facility] [id number] [place] [address] Lipid Panelon 11-21-2017 Cholesterol 108 mg/dL Normal <200 [facility] Comment on above: Performed By: #### [id number] ####[facility] [address] [place] [address] Cholesterol in VLDL mass conc 15 mg/dL Normal <30 [facility] Comment on above: Performed By: #### 1 [id number] ####[facility] [address] [place] [address] Cholesterol to HDL Ratio 2.5 {ratio} Normal [facility] Comment on above: Performed By: #### 1 [id number] ####[facility] [address] [place] [address] HDL Cholesterol 43 mg/dL Normal [facility] Comment on above: Result Comment: Norm al Mod Risk High Risk5-9 >48 42-48 <4210- 14 >45 40-45 <4015-19 >38 34-38 <34Adult >39 Performed By: #### 1 [id number] ####[facility] [address] [place] [address] LDL Cholesterol 50 mg/dL Normal <130 [facility] Comment on above: Performed By: #### 1 [id number] ####[facility] [address] [place] [address] Triglyceride 77 mg/dL Normal <150 [facility] Comment on above: Result Comment: 150- 199 Borderline [id number] High>500 Very High Performed By: #### 1 [id number] ####[facility] [address] [place] [address] Urea Nitrogenon 11-21-2017 Urea nitrogen 14 mg/dL Normal 6-23 [facility] Comment on above: Performed By: #### 1 [id number] ####[facility] [address] [place] [address] Vital Signs Date Time Vital Sign Value Performing Clinician Facility 10-24-2024 09:17-0500 Body height 170.2 cm Karan Hernandes MD Work Phone: [facility] 10-24-2024 09:17-0500 Body mass index (BMI) [Ratio] 26.81 kg/m2 Karan Hernandes MD Work Phone: [facility] 10-24-2024 09:17-0500 Body weight 77.66 kg Karan Hernandes MD Work Phone: [facility] 10-24-2024 09:17-0500 Diastolic blood pressure 66 mm[Hg] Karan Hernandes MD Work Phone: [facility] 10-24-2024 09:17-0500 Heart rate 66 /min Karan Hernandes MD Work Phone: [facility] 10-24-2024 09:17-0500 Systolic blood pressure 126 mm[Hg] Karan Hernandes MD Work Phone: [facility] 04-10-2024 14:30-0400 Diastolic blood pressure 67 mm[Hg] MD Juani Bishop Work Phone: [facility] 04-10-2024 14:30-0400 Heart rate 59 /min MD Juani Bishop Work Phone: [facility] 04-10-2024 14:30-0400 Respiratory rate 16 /min MD Juani Bishop Work Phone: [facility] 04-10-2024 14:30-0400 SaO2% (BldA) [Mass fraction] 100 % MD Juani Bishop Work Phone: [facility] 04-10-2024 14:30-0400 Systolic blood pressure 151 mm[Hg] MD Junai Bishop Work Phone: [facility] 04-10-2024 12:58-0400 Body height 170.18 cm MD Juani Bishop Work Phone: [facility] 04-10-2024 12:58-0400 Body temperature 97.8 [degF] MD Juani Bishop Work Phone: [facility] 04-10-2024 12:58-0400 Body weight 77.6 kg MD Juani Bishop Work Phone: [facility] 04-02-2024 09:21-0400 Body height 170.2 cm Karan Hernandes MD Work Phone: [facility] 04-02-2024 09:21-0400 Body mass index (BMI) [Ratio] 26.78 kg/m2 Karan Hernandes MD Work Phone: [facility] 04-02-2024 [id number] Body weight 77.56 kg Karan Hernandes MD Work Phone: [facility] 04-02-2024 09:21-0400 Diastolic blood pressure 74 mm[Hg] Karan Hernandes MD Work Phone: [facility] 04-02-2024 09:21-0400 Heart rate 68 /min Karan Hernandes MD Work Phone: [facility] 04-02-2024 09:21-0400 Systolic blood pressure 122 mm[Hg] Karan Hernandes MD Work Phone: [facility] 01-15-2024 17:32-0500 Diastolic blood pressure 68 mm[Hg] MD Juani Bishop Work Phone: [facility] 01-15-2024 17:32-0500 Heart rate 62 /min MD Juani Bishop Work Phone: [facility] 01-15-2024 17:32-0500 Respiratory rate 18 /min MD Juani Bishop Work Phone: [facility] 01-15-2024 17:32-0500 SaO2% (BldA) [Mass fraction] 95 % MD Juani Bishop Work Phone: [facility] 01-15-2024 17:32-0500 Systolic blood pressure 129 mm[Hg] MD Juani Bsihop Work Phone: [facility] 01-15-2024 09:22-0500 Body height 170.18 cm MD Juani Bishop Work Phone: [facility] 01-15-2024 09:22-0500 Body temperature 98.8 [degF] MD Juani Bishop Work Phone: [facility] 01-15-2024 09:22-0500 Body weight 79.37 kg MD Juani Bishop Work Phone: [facility] 08-29-2023 13:56-0400 Blood Pressure Location Darell NILL [facility] [place] 08-29-2023 13:56-0400 Diastolic blood pressure 84 mm[Hg] Darell NILL [facility] [place] 08-29-2023 13:56-0400 Heart rate 76 /min Darell NILL [facility] [place] 08-29-2023 13:56-0400 Respiratory rate 16 /min Darell NILL [facility] [place] 08-29-2023 13:56-0400 Systolic blood pressure 126 mm[Hg] Darell NILL [facility] [place] 06-27-2023 09:35-0400 Body height 170.18 cm Tyler [employer] Work Phone: [facility] [address] DO Work Phone: 06-27-2023 09:35-0400 Body mass index (BMI) [Ratio] 27.41 kg/m2 Tyler [employer] Work Phone: [facility] [address] DO Work Phone: 06-27-2023 09:35-0400 Body surface area Derived from formula 1.91 m2 Tyler P [employer] Work Phone: [facility] [address] DO Work Phone: 06-27-2023 09:35-0400 Body weight 79.38 kg Tyler P [employer] Work Phone: [facility] [address] DO Work Phone: 06-27-2023 09:35-0400 Diastolic blood pressure 72 mm[Hg] Tyler P [facility] Work Phone: [facility] [address] DO Work Phone: 06-27-2023 09:35-0400 Heart rate 62 /min Tyler P [facility] Work Phone: [facility] [address] DO Work Phone: 06-27-2023 09:35-0400 Systolic blood pressure 136 mm[Hg] Tyler P House Work Phone: [facility] [address] DO Work Phone: 10-04-2022 09:03-0500 Body height 170.18 cm Tyler P [facility] Work Phone: [facility] [address] DO Work Phone: 10-04-2022 09:03-0500 Body mass index (BMI) [Ratio] 27.88 kg/m2 Tyler P [facility] Work Phone: [facility] [address] DO Work Phone: 10-04-2022 09:03-0500 Body surface area Derived from formula 1.92 m2 Tyler P [facility] Work Phone: [facility] [address] DO Work Phone: 10-04-2022 09:03-0500 Body weight 80.74 kg Tyler P [facility] Work Phone: [facility] [address] DO Work Phone: 10-04-2022 09:03-0500 Diastolic blood pressure 70 mm[Hg] Tyler P [facility] Work Phone: [facility] [address] DO Work Phone: 10-04-2022 09:03-0500 Heart rate 60 /min Tyler P [facility] Work Phone: [facility] [address] DO Work Phone: 10-04-2022 09:03-0500 Systolic blood pressure 116 mm[Hg] Tyler P House Work Phone: [facility] [address] DO Work Phone: 09-21-2022 09:19-0500 Diastolic blood pressure 84 mm[Hg] Tyler P House Work Phone: [facility] 250 DO Work Phone: 09-21-2022 09:19-0500 Systolic blood pressure 142 mm[Hg] Tyler P House Work Phone: [facility] [address] DO Work Phone: 09-21-2022 09:08-0500 Body height 170.18 cm Tyler P House Work Phone: [facility] [address] DO Work Phone: 09-21-2022 09:08-0500 Body mass index (BMI) [Ratio] 27.72 kg/m2 Tyler P House Work Phone: [facility] [address] DO Work Phone: 09-21-2022 09:08-0500 Body surface area Derived from formula 1.92 m2 Tyler P House Work Phone: [facility] [address] DO Work Phone: 09-21-2022 09:08-0500 Body weight 80.29 kg Tyler P House Work Phone: [facility] [address] DO Work Phone: 09-21-2022 09:08-0500 Diastolic blood pressure 80 mm[Hg] Tyler P House Work Phone: [facility] [address] DO Work Phone: 09-21-2022 09:08-0500 Heart rate 80 /min Tyler P House Work Phone: [facility] [address] DO Work Phone: 09-21-2022 09:08-0500 Systolic blood pressure 162 mm[Hg] Tyler Bhatia Work Phone: [facility] [address] DO Work Phone: 09-09-2022 14:41-0400 61.6 1 Tyler Bhatia Work Phone: [facility] 250 DO Work Phone: Comment on above: FSLDL Encounters Encounter Date Encounter Type Care Provider Facility Start: 04-29-2025 ambulatory Juani Bishop Facility :[facility] Start: 11-26-2024 ambulatory Juani Bishop Facility : [facility] Start: 10-30-2024 End: 10-30-2024 ambulatory Juani Bishop Facility: [facility] [place] Start: 10-24-2024 End: 10-24-2024 Office outpatient visit 25 minutes Karan Hernandes MD Work Phone: [facility] Comment on above: Atherosclerosis of c oronary artery, unspecified vessel or lesion type, unspecified whether angina present, unspecified whether [place] or transplanted heart; Status post coronary angioplasty; Mixed hyperlipidemia; Essential hypertension; Overweight with body mass index (BMI) of 26 to 26.9 in adult; Atherosclerosis of [place] coronary artery of [place] heart without angina pectoris; Gout, unspecified cause, unspecified chronicity, unspecified site Start: 10-24-2024 End: 10-24-2024 ambulatory KARAN HERNANDES [facility] Ambulatory Start: 06-19-2024 End: 06-19-2024 Lab Drop off Juani Bishop [facility] Start: 06-19-2024 End: 06-19-2024 ambulatory Juani Bishop Facility: [facility] Start: 04-25-2024 End: 04-25-2024 ambulatory Juani Bishop Facility: [facility] Start: 04-10-2024 End: 04-10-2024 Emergency department patient visit MD Juani Bishop Work Phone: [facility] Work Phone: Start: 04-02-2024 End: 04-02-2024 Office outpatient visit 25 minutes Karan Hernandes MD Work Phone: [facility] Comment on above: Atherosclerosis of c oronary artery, unspecified vessel or lesion type, unspecified whether angina present, unspecified whether [place] or transplanted heart (Primary Dx); Benign essential hypertension; Mixed hyperlipidemia; Status post coronary angioplasty; Gout, unspecified cause, unspecified chronicity, unspecified site; Hypothyroidism, unspecified type; Overweight with body mass index (BMI) of 26 to 26.9 in adult; Never smoked tobacco Start: 04-02-2024 End: 04-02-2024 ambulatory KARAN Molina [facility] Ambulatory Start: 02-22-2024 End: 02-22-2024 ambulatory Juani Bishop Facility:[facility] Start: 01-15-2024 Non-patient / Non-visit MD Mehran Bishop Work Phone: [facility] Work Phone: Start: 01-15-2024 End: 01-15-2024 Admission to same day surgery center MD Juani Bishop Work Phone: [facility] [employer] [facility] Work Phone: Start: 01-15-2024 End: 01-15-2024 ambulatory Karan Hernandes Facility:[facility] Start: 11-27-2023 End: 11-27-2023 ambulatory Juani Bishop Facility:[facility] [place] Start: 11-21-2023 End: 11-21-2023 ambulatory Juani Bishop Facility:[facility] [place] Start: 08-29-2023 End: 08-29-2023 Patient encounter procedure Darell STEPHEN [facility] Start: 08-25-2023 End: 08-25-2023 Lab Drop off Juani Bishop [facility] Start: 06-27-2023 Office outpatient vi sit 25 minutes Tyler P House Work Phone: [facility] [address] DO Work Phone: Start: 06-27-[address] Karan Hernandes Facility: Start: 05-31-2023 Rx Renewal Tyler P Hous e Work Phone: [facility] [address] DO Work Phone: Start: 12-06-2022 Rx Renewal Tyler P Hous e Work Phone: [facility] 250 DO Work Phone: Start: 10-10-2022 End: 10-11-[address] TYLER BHATIA Facility:[facility] Start: 10-04-2022 Office outpatient vi sit 10 minutes Tyler P House Work Phone: [facility] [address] DO Work Phone: Start: 10-04-[address] Karan Hernandes Facility: Start: 09-21-2022 Office outpatient vi sit 25 minutes Tyler P House Work Phone: [facility] 250 DO Work Phone: Start: 09-21-[address] Karan Hernandes Facility: Start: 09-09-2022 End: 09-10-[address] TYLER BHATIA Facility:[facility] Start: 08-31-2022 Rx Renewal Karan Hernandes MD Work Phone: [facility] [address] DO Work Phone: Start: 08-30-2022 Rx Renewal Karan Hernandes MD Work Phone: [facility] 250 DO Work Phone: Start: 06-10-2022 Rx Renewal Karan Hernandes MD Work Phone: [facility] [address] DO Work Phone: Start: 08-25-2021 Rx Renewal Karan Hernandes MD Work Phone: [facility] 250 DO Work Phone: Start: 11-21-2017 Ambulatory KARAN HERNANDES Facility :[id number] Procedures Date Procedure Procedure Detail Performing Clinician Start: 04-10-2024 Plain chest X-ray MD Sa xiomara Bishop Work Phone: Start: 01-15-[address] acement 0 MD Juani Bishop Work Phone: Start: 01-15-2024 CL LHC & COR Angio MD Manny Bishop Work Phone: Start: 01-15-2024 CL Stent 1st Vessel RCA DANIEL MD Juani Bishop Work Phone: Start: 01-15-2024 Cardiac catheterization Juani Bishop Start: 09-27-2023 Colonoscopy Karan perera MD Work Phone: Start: 09-27-2023 Colonoscopy Juani rico Start: 09-09-[address] ROSITA BHATIA Comment on above: Performed By: #### P SAD #### [facility] [address] [place] [address] Dr. Shira Castro Start: 07-30-2020 Lipid 1996 panel - S janis or Plasma Karan Hernandes MD Work Phone: Start: 07-30-2020 Thyrotropin [Units/v olume] in Serum or Plasma Karan Hernandes MD Work Phone: Start: 11-13-2015 Coronary artery sten t (physical object) Darell STEPHEN Amputation of finger of left hand Darell STEPHEN Arthroscopy of wrist Darell STEPHEN Colonoscopy Karan Hernandes MD Work Phone: Colonoscopy Juani Bishop Comment on above: 2012- [facility] Herniated structure (morphologic abnormality) Juani Bishop Comment on above: repair [place] 1996 Operative procedure on wrist Karan Hernandes MD Work Phone: Repair of umbilical hernia Tracy STEPHEN Tonsillectomy Karan Hernandes MD Work Phone: Tonsillectomy Juani Bishop Comment on above: [address] [place] [address] Plan of Treatment Date Care Activity Detail Author Start: 09-27-2033 Screening for malignant neoplasm of colon [facility] Start: 07-30-2025 Lipid panel Lipid Panel [facility] Start: 07-24-2025 End: 07-24-2025 Patient encounter procedure 07/24/2025 10:00 AM EDT Office Visit [facility] [address] [facility] [address] [place] [address] Karan Hernandes MD [address] [facility] [address] [place] [address] [facility] Start: 10-24-2024 End: 10-24-2025 Alanine aminotransferase [Enzymatic activity/volume] in Serum or Plasma by With P-5'-P Alanine Aminotransferase Lab Routine Mixed hyperlipidemia Expected: 10/24/2024 (Approximate), Expires: 10/24/2025 [facility] Work Phone: Comment on above: Expected: 10/24/2024 (Approximate), Expi res: 10/24/2025 Start: 10-24-2024 End: 10-24-2025 Aspartate aminotransferase [Enzymatic activity/volume] in Serum or Plasma by With P-5'-P Aspartate Aminotransferase Lab Routine Mixed hyperlipidemia Expected: 10/24/2024 (Approximate), Expires: 10/24/2025 [facility] Work Phone: Comment on above: Expected: 10/24/2024 (Approximate), Expi res: 10/24/2025 Start: 10-24-2024 End: 10-24-2025 Basic metabolic 2000 panel - Serum or Plasma Basic Metabolic Panel Lab Routine Essential hypertension Expected: 10/24/2024 (Approximate), Expires: 10/24/2025 [facility] Work Phone: Comment on above: Expected: 10/24/2024 (Approximate), Expi res: 10/24/2025 Start: 10-24-2024 End: 10-24-2025 CBC panel - Blood by Automated count CBC Lab Routine Atherosclerosis of coronary artery, unspecified vessel or lesion type, unspecified whether angina present, unspecified whether [place] or transplanted heart Status post coronary angioplasty Mixed hyperlipidemia Essential hypertension Expected: 10/24/2024 (Approximate), Expires: 10/24/2025 [facility] Work Phone: Comment on above: Expected: 10/24/2024 (Approximate), Expi res: 10/24/2025 Start: 10-24-2024 End: 10-24-2025 Lipid 1996 panel - Serum or Plasma Lipid Panel Lab Routine Mixed hyperlipidemia Expected: 10/24/2024 (Approximate), Expires: 10/24/2025 [facility] Service Area Work Phone: Comment on above: Expected: 10/24/2024 (Approximate), Expi res: 10/24/2025 Start: 10-24-2024 End: 10-24-2024 Patient encounter procedure 10/24/2024 9:20 AM EST Office Visit [facility] [address] [place] [id number] Karan Hernandes MD [address] [facility] [address] [place] [address] [facility] Start: 07-14-2024 COVID-19 Vaccine ( season) COVID-19 Vaccine ( season) [facility] Start: 07-14-2024 Influenza vaccination [facility] Start: 04-10-2024 [facility] Start: 04-02-2024 End: 04-02-2025 Alanine aminotransferase [Enzymatic activity/volume] in Serum or Plasma by With P-5'-P Alanine Aminotransferase Lab Routine Atherosclerosis of coronary artery, unspecified vessel or lesion type, unspecified whether angina present, unspecified whether [place] or transplanted heart Mixed hyperlipidemia Expected: 04/02/2024 (Approximate), Expires: 04/02/2025 [facility] Work Phone: Comment on above: Expected: 04/02/2024 (Approximate), Expi res: 04/02/2025 Start: 04-02-2024 End: 04-02-2025 Aspartate aminotransferase [Enzymatic activity/volume] in Serum or Plasma by With P-5'-P Aspartate Aminotransferase Lab Routine Atherosclerosis of coronary artery, unspecified vessel or lesion type, unspecified whether angina present, unspecified whether [place] or transplanted heart Mixed hyperlipidemia Expected: 04/02/2024 (Approximate), Expires: 04/02/2025 [facility] Work Phone: Comment on above: Expected: 04/02/2024 (Approximate), Expi res: 04/02/2025 Start: 04-02-2024 End: 04-02-2025 Basic metabolic 2000 panel - Serum or Plasma Basic Metabolic Panel Lab Routine Atherosclerosis of coronary artery, unspecified vessel or lesion type, unspecified whether angina present, unspecified whether [place] or transplanted heart Benign essential hypertension Expected: 04/02/2024 (Approximate), Expires: 04/02/2025 [facility] Work Phone: Comment on above: Expected: 04/02/2024 (Approximate), Expi res: 04/02/2025 Start: 04-02-2024 End: 04-02-2025 CBC panel - Blood by Automated count CBC Lab Routine Atherosclerosis of coronary artery, unspecified vessel or lesion type, unspecified whether angina present, unspecified whether [place] or transplanted heart Status post coronary angioplasty Expected: 04/02/2024 (Approximate), Expires: 04/02/2025 [facility] Service Area Work Phone: Comment on above: Expected: 04/02/2024 (Approximate), Expi res: 04/02/2025 Start: 04-02-2024 End: 04-02-2025 Fasting glucose [Mass/volume] in Serum or Plasma Glucose, fasting Lab Routine Atherosclerosis of coronary artery, unspecified vessel or lesion type, unspecified whether angina present, unspecified whether [place] or transplanted heart Expected: 04/02/2024 (Approximate), Expires: 04/02/2025 [facility] Work Phone: Comment on above: Expected: 04/02/2024 (Approximate), Expi res: 04/02/2025 Start: 04-02-2024 End: 04-02-2025 Lipid 1996 panel - Serum or Plasma Lipid Panel Lab Routine Atherosclerosis of coronary artery, unspecified vessel or lesion type, unspecified whether angina present, unspecified whether [place] or transplanted heart Mixed hyperlipidemia Expected: 04/02/2024 (Approximate), Expires: 04/02/2025 [facility] Work Phone: Comment on above: Expected: 04/02/2024 (Approximate), Expi res: 04/02/2025 Start: 04-02-2024 End: 04-02-2025 Thyrotropin [Units/volume] in Serum or Plasma Thyroid Stimulating Hormone Lab Routine Benign essential hypertension Mixed hyperlipidemia Hypothyroidism, unspecified type Expected: 04/02/2024 (Approximate), Expires: 04/02/2025 [facility] Work Phone: Comment on above: Expected: 04/02/2024 (Approximate), Expi res: 04/02/2025 Start: 04-02-2024 End: 04-02-2025 Urate [Mass/volume] in Serum or Plasma Uric Acid Lab Routine Gout, unspecified cause, unspecified chronicity, unspecified site Expected: 04/02/2024 (Approximate), Expires: 04/02/2025 [facility] Work Phone: Comment on above: Expected: 04/02/2024 (Approximate), Expi res: 04/02/2025 Start: 04-02-2024 FUV, Provider: Karan Hernandes, Status: Pen, Time: 9:20 AM FUV, Provider: Karan Hernandes, Status: Pen, Time: 9:20 AM [facility] DO Work Phone: Start: 01-15-2024 [facility] Start: 01-15-2024 Hospital admission [facility] Start: 07-14-2023 COVID-19 Vaccine ( season) COVID-19 Vaccine ( season) [facility] Start: 06-27-2023 FUV, Provider: Karan Hernandes, Status: Pen, Time: 9:30 AM FUV, Provider: Karan Hernandes, Status: Pen, Time: 9:30 AM [facility] [address] DO Work Phone: Start: 10-04-2022 MALIAH, Provider: TRISH OSMAN JOURNEYMAN WELDER 1,[id number], Status: Pen, Time: 9:00 AM MALIHA, Provider: TRISH [employer]SM[employer] WELDER 1,[id number], Status: Pen, Time: 9:00 AM -[facility] [address] DO Work Phone: Start: 09-21-2022 FUV, Provider: Karan Hernandes, Status: Pen, Time: 9:00 AM FUV, Provider: Karan Hernandes, Status: Pen, Time: 9:00 AM -[facility] [address] DO Work Phone: Start: 03-23-2022 FUV, Provider: Karan Hernandes, Status: Pen, Time: 10:15 AM FUV, Provider: Karan Hernandes, Status: Pen, Time: 10:15 AM -[facility] [address] DO Work Phone: Start: 07-30-2021 Thyroid stimulating hormone measurement TSH Level [facility] Start: 2012 RSV High Risk: (Elderly (60+) or Population) (1 - Risk 60-74 years 1-dose series) RSV High Risk: (Elderly (60+) or Population) (1 - Risk 60-74 years 1-dose series) [facility] Start: 2012 RSV patients and/or patients aged 60+ years (1 - 1-dose 60+ series) RSV patients and/or patients aged 60+ years (1 - 1-dose 60+ series) [facility] Start: 1974 DTaP/Tdap/Td Vaccines (1 - Tdap) DTaP/Tdap/Td Vaccines (1 - Tdap) [facility] Start: 1970 Hepatitis C screening Hepatitis C Screening [facility] Start: 1952 Medicare Annual Wellness Visit Medicare Annual Wellness Visit (AWV) [facility] Start: 1950 Screening for malignant neoplasm of colon [facility] Basophils [#/volume] in Blood by Automated count [facility] Basophils/100 leukoc ytes in Blood by Automated count [facility] Eosinophils/100 leukocytes in Blood by Automated count [facility] Lymphocytes [#/volum e] in Blood by Automated count [facility] Lymphocytes/100 leukocytes in Blood by Automated count [facility] Monocytes [#/volume] in Blood by Automated count [facility] Monocytes/100 leukoc ytes in Blood by Automated count [facility] Neutrophils [#/volum e] in Blood by Automated count [facility] Neutrophils/100 leukocytes in Blood by Automated count [facility] Nucleated erythrocyt es [Presence] in Blood by Automated count [facility] Patient Education [facility] Work Phone: Patient referral [facility] Work Phone: Immunizations Immunization Date Immunization Notes Care Provider Belén garcia 09-27-2022 Pfizer COVID-19 Vac Bivalent 30 MCG/0.3ML Intramuscular Suspension Tyler P House Work Phone: [facility] [place] 09-27-2022 Pfizer Purple Cap SARS-CoV-2 Karan Hernandes MD Work Phone: [facility] Work Phone: 02-26-2022 Comirnaty 30 MCG/0.3 ML Intramuscular Suspension Karan Hernandes MD Work Phone: [facility] 250 DO Work Phone: 02-26-2022 SARS-CoV-2 mRNA ([id number]) vaccine Juani Bishop [facility] [facility] 02-26-2022 SARS-CoV-2, Unspecified Mike Hernandes MD Work Phone: [facility] Work Phone: 08-20-2021 Pfizer-BioNTech COVID-19 Vacc 30 MCG/0.3ML Intramuscular Suspension Karna Hernandes MD Work Phone: [facility] 01-12-2021 Pfizer-BioNTech COVID-19 Vacc 30 MCG/0.3ML Intramuscular Suspension Karan Hernandes MD Work Phone: [facility] Comment on above: Result Comment: 2022: [id number] 12-22-2020 Pfizer-BioNTech COVID-19 Vacc 30 MCG/0.3ML Intramuscular Suspension Karan Hernandes MD Work Phone: [facility] Comment on above: Result Comment: 2022: TPV65 05-27-2019 zoster vaccine recombinant Karan Hernandes MD Work Phone: [facility] 02-28-2019 zoster vaccine recombinant Karan Hernandes MD Work Phone: [facility] 10-23-2018 pneumococcal polysaccharide vaccine, 23 valent Karan Hernandes MD Work Phone: [facility] 10-11-2017 pneumococcal conjuga te vaccine, 13 valent Karan Hernandes MD Work Phone: [facility] 09-13-2017 pneumococcal polysaccharide vaccine, 23 valent Karan Hernandes MD Work Phone: [facility] 250 DO Work Phone: 09-22-2016 pneumococcal polysaccharide vaccine, 23 robles Hernandes MD Work Phone: [facility] 08-13-2016 pneumococcal polysaccharide vaccine, 23 robles Hernandes MD Work Phone: -[facility] 250 DO Work Phone: NEGATED: Highlighted row has not occurred!08-29-2023 influenza virus vaccine, unspecified formulation Darell STEPHEN [facility] [place] Payers Date Payer Category Payer Self-pay 2023 Medicare supplementa l policy (as second payer) [employer] [id number] 2023 Unknown 2017 Medicare [id number] 1959 Medicare [id number] 1959 Unknown [id number] 1952 Unknown [id number] 2.16.840.1.736427.3.579. 2.593 1952 Unknown [id number] 2.16.840.1.473721.3.579. 2.593 1952 Unknown [id number] 2.16.840.1.097835.3.579. 2.356 1952 Unknown [id number] 2.16.840.1.152213.3.579. 2.356 1952 Unknown [id number] 2.16.840.1.759490.3.579. 2.356 1952 Unknown [id number] 2.16.840.1.890310.3.579. 2.1244 1952 Unknown [id number] 2.16.840.1.334554.3.579. 2.1244 1952 Unknown [id number] 2.16.840.1.101145.3.579. 2.727 1952 Unknown [id number] 2.16.840.1.201760.3.579. 2.727 1952 Unknown [id number] 2.16.840.1.450691.3.579. 2.72 1952 Unknown [id number] 2.16.840.1.009220.3.579. 2.727 1952 Unknown [id number] 2.16.840.1.851668.3.579. 2.727 1952 Unknown [id number] 2.16.840.1.275013.3.579. 2.727 1952 Unknown [id number] 2.16.840.1.725302.3.579. 2.727 1952 Unknown [id number] 2.16.840.1.539193.3.579. 2.727 1952 Unknown [id number] 2.16.840.1.701780.3.579. 2.727 1952 Unknown [id number] 2.16.840.1.253626.3.579. 2.727 Medicare [id number] Unknown [employer] [id number] Unknown [id number] 2.16.840.1.522162.3.579. 2.531 Unknown [id number] 2.16.840.1.602186.3.579. 2.531 Social History Date Type Detail Facility Start: 04-02-2024 End: 10-24-2024 Caffeine use Caffeine use -[facility] 250 DO Work Phone: Comment on above: 16 oz of coffee willian y; Start: 08-25-2023 End: 10-18-2023 Tobacco smoking status [facility] use Start: 04-02-2024 Sex Assigned At Male F [facility] Start: 10-18-2023 Tobacco use and exposure Smokeless tobacco non-user [facility] Work Phone: Start: 04-02-2024 End: 10-24-2024 Alcoholic beverage intake Current drinker of alcohol (finding) [facility] Work Phone: Start: 10-18-2023 Alcohol Comment rare [facility] Work Phone: Start: 1950 Sex assigned at Not on file [facility] Work Phone: Start: 03-23-2024 End: 10-24-2024 Exposure to SARS-CoV-2 (event) Not sure [facility] Start: 1950 Sex Assigned At Male F [facility] Medical Equipment Procedure Code Equipment Code Equipment Origin al Text Equipment Identifier Dates CL CLOSURE DEVIC E ANGIOSEAL 6F FDA Start: 01-15-2024 CL STENT CHERELLE FRONTIER 3.0 X 38 FDA Start: 01-15-2024 CL STENT CHERELLE FRONTIER 3.5 X 18 FDA Start: 01-15-2024 Goals Date Patient Goal Desired Activity /State Functional Status Date Assessment Result Facility 08-29-2023 Functional Status N/A General [facility] Clinical Notes 04-02-2024 to 10-30-2024 Karan Hernandes MD - 10/24/2024 9:20 AM ESTPatient InstructionsAttachmentsKarna Hernandes MD - 04/02/2024 9:20 AM EDTPatient Instructions Note Date & Type Note Facility 10-30-2024 Note Patient Education Nutrition BMI for Adults Body mass index (BMI) is a number found using a person's weight and height. BMI can help tell how much of a person's weight is made up of fat. BMI does not measure body fat directly. It is used instead of tests that directly measure body fat, which can be difficult and expensive. What are BMI measurements used for? BMI is useful to: ??? Find out if your weight puts you at higher risk for medical problems. ??? Help recommend changes, such as in diet and exercise. This can help you reach a healthy weight. BMI screening can be done again to see if these changes are working. How is BMI calculated? Your height and weight are measured. The BMI is found from those numbers. This can be done with U.S. or metric measurements. Note that charts and online BMI calculators are available to help you find your BMI quickly and easily without doing these calculations. To calculate your BMI in U.S. measurements: 1. Measure your weight in pounds (lb). 2. Multiply the number of pounds by 703. ??? So, for an adult who weighs 150 lb, multiply that number by 703: 150 x 703, which equals 105,450. 3. Measure your height in inches. Then multiply that number by itself to get a measurement called inches squared. ??? So, for an adult who is 70 inches tall, the inches squared measurement is 70 inches x 70 inches, which equals 4,900 inches squared. 4. Divide the total from step 2 (number of lb x 703) by the total from step 3 (inches squared): 105,450 ? 4,900 = 21.5. This is your BMI. To calculate your BMI in metric measurements: 1. Measure your weight in kilograms (kg). ??? For this example, the weight is 70 kg. 2. Measure your height in meters (m). Then multiply that number by itself to get a measurement called meters squared. ??? So, for an adult who is 1.75 m tall, the meters squared measurement is 1.75 m x 1.75 m, which equals 3.1 meters squared. 3. Divide the number of kilograms (your weight) by the meters squared number. In this example: 70 ? 3.1 = 22.6. This is your BMI. What do the results mean? BMI charts are used to see if you are underweight, normal weight, overweight, or obese. The following guidelines will be used: ??? Underweight: BMI less than 18.5. ??? Normal weight: BMI between 18.5 and 24.9. ??? Overweight: BMI between 25 and 29.9. ??? Obese: BMI of 30 or above. BMI is a tool and cannot diagnose a condition. Talk with your health care provider about what your BMI means for you. Keep these notes in mind: ??? Weight includes fat and muscle. Someone with a muscular build, such as an athlete, may have a BMI that is higher than 24.9. In cases like these, BMI is not a correct measure of body fat. ??? If you have a BMI of 25 or higher, your provider may need to do more testing to find out if excess body fat is the cause. ??? BMI is measured the same way for males and females. Females usually have more body fat than males of the same height and weight. Where to find more information For more information about BMI, including tools to quickly find your BMI, go to: ??? Centers for Disease Control and Prevention: cdc.gov ??? [place] Heart Association: heart.org ??? National Heart, Lung, and Blood [place]: nhlbi.nih.gov This information is not intended to replace advice given to you by your health care provider. Make sure you discuss any questions you have with your health care provider. Document Revised: 07/20/2023 Document Reviewed: 07/13/2023 [employer] Patient Education ? 2023 [employer] [facility] 10-24-2024 History of Present illness Narrative Subjective Gareth Menjivar is a 74 y.o. male Chief Complaint Follow-up HPI Patient is in the office for follow-up for CAD and previous PCI. He has not had any events since he was last seen in the office back in March 2024. He just had a visit to the emergency department soon after his visit with me for atypical chest pain and his workup was negative. He maintains active lifestyle and has been compliant medical therapy, he does not smoke and he has no side effect of medications. Recently had nosebleed and he stopped taking the aspirin. He is on Brilinta. Examination is unremarkable for slight overweight. ASSESSMENT AND PLAN: 1. Coronary artery disease status post angioplasty to the RCA and the marginal in 2015 and again to the RCA in January 15, 2024. He will remain on dual antiplatelet therapy for the time being with Brilinta and aspirin and aggressive risk factors modifications. He is non-smoker nondiabetic. The patient was advised to use the aspirin 3 times weekly while he is on Brilinta since he had epistaxis and once he finishes 1 year of dual antiplatelet therapy he will stop the Brilinta and continue on the aspirin daily 2. Hyperlipidemia, on high intensity statin. Lipid profile is followed 3. Overweight. Encouraged the patient for more activities to bring his weight under control., Target weight is 160 pounds 4. Essential hypertension, presently under control. No changes are needed. 5. Gout on allopurinol in remission and controlled. 6. Hypothyroidism on replacement therapy under control., Review of Systems All other systems reviewed and are negative. Vitals: 10/24/24 0917 BP: 126/66 BP Location: Left arm Patient Position: Sitting Pulse: 66 Weight: 77.7 kg (171 lb 3.2 oz) Height: 1.702 m (5' 7 ) Objective Physical Exam Constitutional: Appearance: Normal appearance. HENT: Nose: Nose normal. Neck: Vascular: No carotid bruit. Cardiovascular: Rate and Rhythm: Normal rate. Pulses: Normal pulses. Heart sounds: Normal heart sounds. Pulmonary: Effort: Pulmonary effort is normal. Abdominal: General: Bowel sounds are normal. Palpations: Abdomen is soft. Musculoskeletal: General: Normal range of motion. Cervical back: Normal range of motion. Right lower leg: No edema. Left lower leg: No edema. Skin: General: Skin is warm and dry. Neurological: General: No focal deficit present. Mental Status: He is alert. Psychiatric: Mood and Affect: Mood normal. Behavior: Behavior normal. Thought Content: Thought content normal. Judgment: Judgment normal. Allergies Chandrakant inhibitors and Plavix [clopidogrel] Current Medications Current Outpatient Medications: allopurinol (Zyloprim) 300 mg tablet, Take 1 tablet (300 mg) by mouth once daily., Disp: , Rfl: amLODIPine (Norvasc) 5 mg tablet, Take 1 tablet (5 mg) by mouth once daily., Disp: 90 tablet, Rfl: 3 atenolol (Tenormin) 50 mg tablet, TAKE 1 TABLET BY MOUTH EVERY DAY, Disp: 90 tablet, Rfl: 3 atorvastatin (Lipitor) 40 mg tablet, Take 1 tablet (40 mg) by mouth once daily., Disp: 90 tablet, Rfl: 3 lamoTRIgine (LaMICtal) 100 mg tablet, Take 1 tablet (100 mg) by mouth once daily., Disp: , Rfl: levothyroxine (Synthroid, Levoxyl) 75 mcg tablet, Take 1 tablet (75 mcg) by mouth once daily., Disp: , Rfl: pantoprazole (ProtoNix) 40 mg EC tablet, Take 1 tablet (40 mg) by mouth once daily in the morning. Take before meals., Disp: 90 tablet, Rfl: 3 sildenafil (Viagra) 100 mg tablet, Take 1 tablet (100 mg) by mouth if needed for erectile dysfunction., Disp: , Rfl: ticagrelor (Brilinta) 90 mg tablet, Take 1 tablet (90 mg) by mouth 2 times a day., Disp: 180 tablet, Rfl: 3 valsartan (Diovan) 80 mg tablet, TAKE 1 TABLET BY MOUTH DAILY, Disp: 90 tablet, Rfl: 3 [START ON 10/25/2024] aspirin 81 mg EC tablet, Take 1 tablet (81 mg) by mouth 3 (three) times a week., Disp: 36 tablet, Rfl: 3 Assessment/Plan 1. Atherosclerosis of coronary artery, unspecified vessel or lesion type, unspecified whether angina present, unspecified whether [place] or transplanted heart Follow Up In Cardiology Follow Up In Cardiology CBC CBC 2. Status post coronary angioplasty CBC CBC 3. Mixed hyperlipidemia Lipid Panel CBC Aspartate Aminotransferase Alanine Aminotransferase Lipid Panel CBC Aspartate Aminotransferase Alanine Aminotransferase 4. Essential hypertension CBC Basic Metabolic Panel CBC Basic Metabolic Panel 5. Overweight with body mass index (BMI) of 26 to 26.9 in adult 6. Atherosclerosis of [place] coronary artery of [place] heart without angina pectoris aspirin 81 mg EC tablet 7. Gout, unspecified cause, unspecified chronicity, unspecified site Scribe Attestation By signing my name below, Akila Farias LPN , Scribe attest that this documentation has been prepared under the direction and in the presence of Karan Hernandes MD. Provider Attestation - Scribe documentation All medical record entries made by the Scribe were at my direction and personally dictated by me. I have reviewed the chart and agree that the record accurately reflects my personal performance of the history, physical exam, discussion and plan. documented in this encounter [facility] Work Phone: 10-24-2024 Instructions Akila Escobar LPN - 10/24/2024 9:20 AM EST Please bring all medicines, vitamins, and herbal supplements with you when you come to the office. Prescriptions will not be filled unless you are compliant with your follow up appointments or have a follow up appointment scheduled as per instruction of your physician. Refills should be requested at the time of your visit. BMI was above normal measurement. Current weight: 77.7 kg (171 lb 3.2 oz) Weight change since last visit (-) denotes wt loss 0.2 lbs Weight loss needed to achieve BMI 25: 11.9 Lbs Weight loss needed to achieve BMI 30: -19.9 Lbs Provided instructions on dietary changes Provided instructions on exercise. May stop brilinta in january and start taking the aspirin 81mg daily The following attachments cannot be sent through Care Everywhere.Heart Healthy Diet ([place])documented in this encounter [facility] Work Phone: 06-19-2024 Note Nurse Consultation N [place]te Reason for Visit Here for lab draw Medications allopurinol 300 mg Tab, See Instructions amLODIPine 5 mg Tab, 5 mg= 1 tab(s), Oral, Daily Aspirin Low Dose 81 mg oral enteric coated tablet atenolol 50 mg Tab, 50 mg= 1 tab(s), Oral, Daily atorvastatin 40 mg Tab, 40 mg= 1 tab(s), Oral, Daily escitalopram 10 mg Tab, See Instructions lamotrigine 100 mg Tab, See Instructions levothyroxine 75 mcg (0.075 mg) Tab, See Instructions nitroglycerin 0.4 mg sublingual Tab, 0.4 mg= 1 tab(s), SubLingual, q5min, PRN Pantoprazole [address] Tab sildenafil 100 mg Tab, 100 mg= 1 tab(s), Oral, Daily, PRN ticagrelor 90 mg oral tablet, 90 mg= 1 tab(s), Oral, BID valsartan 80 mg Tab, 80 mg= 1 tab(s), Oral, Daily Allergies No Known Allergies No Known Medication Allergies Immunizations Vaccine Date Status Comments influenza virus vaccine, inactivated - Not Given Patient Refuses SARS-CoV-2 (COVID-19) [id number] 09/27/2022 Recorded SARSCoV2 mRNA([id number]) vac 02/26/2022 Recorded SARS-CoV-2 (COVID-19) mRNA BNT-162b2 vax 08/20/2021 Recorded SARS-CoV-2 (COVID-19) mRNA BNT-162b2 vax 01/12/2021 Recorded 2023-08-24: [id number] SARS-CoV-2 (COVID-19) mRNA BNT-162b2 vax 12/22/2020 Recorded 2023-08-24: TPV65 zoster vaccine, inactivated 05/27/2019 Recorded zoster vaccine, inactivated 02/28/2019 Recorded pneumococcal 23-valent vaccine 10/23/2018 Recorded pneumococcal 13-valent vaccine 10/11/2017 Recorded pneumococcal 23-valent vaccine 09/22/2016 Recorded [facility] 04-02-2024 History of Present illness Narrative Subjective Gareth Menjivar is a 73 y.o. male Chief Complaint Follow-up HPI Patient is in the office for follow-up for CAD and other problems noted below. On January 15, 2024 the patient underwent diagnostic cardiac catheterization by myself which revealed high-grade stenosis in the mid RCA requiring placement of a stent. He has widely patent stent in the left circumflex, his LAD has 50 to 60% stenosis distally and some diagonal disease which will left for medical therapy. Did not tolerate Plavix with significant side effects that are not common for Plavix requiring switching to Brilinta which has been well-tolerated. He maintains active lifestyle and has had no events since his angioplasty. Review of system otherwise was normal physical examination is only remarkable for overweight. ASSESSMENT AND PLAN: 1. Coronary artery disease status post angioplasty to the RCA and the marginal in 2015 and again to the RCA in January 15, 2024. He will remain on dual antiplatelet therapy for the time being with Brilinta and aspirin and aggressive risk factors modifications. He is non-smoker nondiabetic. 2. Hyperlipidemia, on high intensity statin. Lipid profile is followed 3. Overweight. Encouraged the patient for more activities to bring his weight under control., Target weight is 160 pounds 4. Essential hypertension, presently under control. No changes are needed. 5. Gout on allopurinol in remission and controlled. Uric acid level is ordered 6. Hypothyroidism on replacement therapy under control., TSH is ordered Karan Hernandes MD, [facility] Review of Systems All other systems reviewed and are negative. Vitals: 04/02/24 0921 BP: 122/74 BP Location: Left arm Patient Position: Sitting Pulse: 68 Weight: 77.6 kg (171 lb) Height: 1.702 m (5' 7 ) Objective Physical Exam Constitutional: Appearance: Normal appearance. HENT: Nose: Nose normal. Neck: Vascular: No carotid bruit. Cardiovascular: Rate and Rhythm: Normal rate. Pulses: Normal pulses. Heart sounds: Normal heart sounds. Pulmonary: Effort: Pulmonary effort is normal. Abdominal: General: Bowel sounds are normal. Palpations: Abdomen is soft. Musculoskeletal: General: Normal range of motion. Cervical back: Normal range of motion. Right lower leg: No edema. Left lower leg: No edema. Skin: General: Skin is warm and dry. Neurological: General: No focal deficit present. Mental Status: He is alert. Psychiatric: Mood and Affect: Mood normal. Behavior: Behavior normal. Thought Content: Thought content normal. Judgment: Judgment normal. Allergies Chandrakant inhibitors and Plavix [clopidogrel] Current Medications Current Outpatient Medications: allopurinol (Zyloprim) 300 mg tablet, Take 1 tablet (300 mg) by mouth once daily., Disp: , Rfl: amLODIPine (Norvasc) 5 mg tablet, Take 1 tablet (5 mg) by mouth once daily., Disp: , Rfl: aspirin 81 mg EC tablet, TAKE 1 TABLET BY MOUTH DAILY, Disp: 90 tablet, Rfl: 3 atenolol (Tenormin) 50 mg tablet, Take 1 tablet (50 mg) by mouth once daily., Disp: , Rfl: atorvastatin (Lipitor) 40 mg tablet, Take 1 tablet (40 mg) by mouth once daily., Disp: , Rfl: lamoTRIgine (LaMICtal) 100 mg tablet, Take 1 tablet (100 mg) by mouth once daily., Disp: , Rfl: levothyroxine (Synthroid, Levoxyl) 75 mcg tablet, Take 1 tablet (75 mcg) by mouth once daily., Disp: , Rfl: pantoprazole (ProtoNix) 40 mg EC tablet, Take 1 tablet (40 mg) by mouth once daily in the morning. Take before meals., Disp: , Rfl: sildenafil (Viagra) 100 mg tablet, Take 1 tablet (100 mg) by mouth if needed for erectile dysfunction., Disp: , Rfl: ticagrelor (Brilinta) 90 mg tablet, Take 1 tablet (90 mg) by mouth 2 times a day., Disp: 180 tablet, Rfl: 3 valsartan (Diovan) 80 mg tablet, Take 1 tablet (80 mg) by mouth once daily., Disp: , Rfl: Assessment/Plan 1. Atherosclerosis of coronary artery, unspecified vessel or lesion type, unspecified whether angina present, unspecified whether [place] or transplanted heart Follow Up In Cardiology CBC Basic Metabolic Panel Aspartate Aminotransferase Alanine Aminotransferase Lipid Panel Glucose, fasting CBC Basic Metabolic Panel Aspartate Aminotransferase Alanine Aminotransferase Lipid Panel Glucose, fasting 2. Benign essential hypertension Basic Metabolic Panel Thyroid Stimulating Hormone Basic Metabolic Panel Thyroid Stimulating Hormone 3. Mixed hyperlipidemia Aspartate Aminotransferase Alanine Aminotransferase Lipid Panel Thyroid Stimulating Hormone Aspartate Aminotransferase Alanine Aminotransferase Lipid Panel Thyroid Stimulating Hormone 4. Status post coronary angioplasty CBC CBC 5. Gout, unspecified cause, unspecified chronicity, unspecified site Uric Acid Uric Acid 6. Hypothyroidism, unspecified type Thyroid Stimulating Hormone Thyroid Stimulating Hormone 7. Overweight with body mass index (BMI) of 26 to 26.9 in adult 8. Never smoked tobacco Scribe Attestation By signing my name below, Marielle Farias LPN, Scribe attest that this documentation has been prepared under the direction and in the presence of Karan Hernandes MD. Provider Attestation - Scribe documentation All medical record entries made by the Scribe were at my direction and personally dictated by me. I have reviewed the chart and agree that the record accurately reflects my personal performance of the history, physical exam, discussion and plan. documented in this encounter [facility] Work Phone: 04-02-2024 Instructions Marielle Paz LPN - 04/02/2024 9:20 AM EDT Please bring all medicines, vitamins, and herbal supplements with you when you come to the office. Prescriptions will not be filled unless you are compliant with your follow up appointments or have a follow up appointment scheduled as per instruction of your physician. Refills should be requested at the time of your visit. Follow up 6 months Lab work BMI was above normal measurement. Current weight: 77.6 kg (171 lb) Weight change since last visit (-) denotes wt loss -4 lbs Weight loss needed to achieve BMI 25: 11.7 Lbs Weight loss needed to achieve BMI 30: -20.1 Lbs Provided instructions on dietary changes. documented in this encounter [facility] Work Phone: Evaluation + Plan note Future Appointments Appointment Date:08/29/2023 02:00:00 PM Scheduled Provider:Darell STEPHEN MD Location:[facility] Appointment Type: Established 30 Appointment Date:09/25/2023 09:40:00 AM Scheduled Provider:Juani Bishop MD Location[facility] Appointment Type:FM Open Appointment Date:02/22/2024 09:15:00 AM Scheduled Provider:Juani Bishop MD Location:[facility] Appointment Type: Open [facility] Evaluation + Plan note Future Appointments Appointment Date:09/25/2023 09:40:00 AM Scheduled Provider:Juani Bishop MD Location:[facility] Appointment Type:FM Open Appointment Date:02/22/2024 09:15:00 AM Scheduled Provider:Juani Bishop MD Location:[facility] Appointment Type: Open [facility] [place] Evaluation + Plan note Future Appointments Appointment Date:10/24/2024 02:00:00 PM Scheduled Provider:Ju[facility] MD [facility] App[facility] Type: Open Appointment Date:11/26/2024 01:00:00 PM Scheduled Provider: Location:[facility] Appointment Type:FM Medicare Wellness Subsequent [facility] Evaluation note Diagnosis Atherosclerosis of coronary artery, unspecified vessel or lesion type, unspecified whether angina present, unspecified whether [place] or transplanted heart- Primary Benign essential hypertension Essential hypertension, benign Mixed hyperlipidemia Status post coronary angioplasty Postsurgical percutaneous transluminal coronary angioplasty status Gout, unspecified cause, unspecified chronicity, unspecified site Hypothyroidism, unspecified type Overweight with body mass index (BMI) of 26 to 26.9 in adult Never smoked tobacco documented in this encounter [facility] Work Phone: Evaluation noteNo assessment information available [facility] Work Phone: Evaluation note* Diagnosis Atherosclerosis of coronary artery, unspecified vessel or lesion type, unspecified whether angina present, unspecified whether [place] or transplanted heart Status post coronary angioplasty Postsurgical percutaneous transluminal coronary angioplasty status Mixed hyperlipidemia Essential hypertension Unspecified essential hypertension Overweight with body mass index (BMI) of 26 to 26.9 in adult Gout, unspecified cause, unspecified chronicity, unspecified site documented in this encounter [facility] Work Phone: Hospital course Narrative No data available for this section [facility] No data available for this section [facility] Additional Instructions Continue current meds [facility] are [facility] Work Phone: Progress note No data available for this section [facility] (narrative)* Consultation (Routine) - Authorized Specialty Diagnoses / Procedures Referred By Contac t Referred To Contact Cardiology Diagnoses Atherosclerosis of coronary artery, unspecified vessel or lesion type, unspecified whether angina present, unspecified whether [place] or transplanted heart Procedures Follow Up In Cardiology Karan Hernandes MD [address] [facility] [address] [place] [address] Karan Hernandes MD [address] [facility] [address], [facility] [address] [place] [address] Referral ID Status Reason Start Date Expiration Date V isits Requested Visits Authorized [id number] Authorized 04/02/2024 04/02/2025 1 1 [facility] Work Phone: Summary Purpose Family History No Family History Records FoundUnknown Family Member Name Dates Details Family history of myocardial infarction: Father, Brother(V17.3, Z82.49) Status:Active Unknown Family Member Name Dates Details Family history of myocardial infarction: Father, Brother(V17.3, Z82.49) Status:Active Unknown Family Member Name Dates Details Family history of myocardial infarction: Father, Brother(V17.3, Z82.49) Status:Active Unknown Family Member Name Dates Details Family history of myocardial infarction: Father, Brother(V17.3, Z82.49) Status:Active Unknown Family Member Name Dates Details Family history of myocardial infarction: Father, Brother(V17.3, Z82.49) Status:Active Unknown Family Member Name Dates Details Family history of myocardial infarction: Father, Brother(V17.3, Z82.49) Status:Active Unknown Family Member Name Dates Details Family history of myocardial infarction: Father, Brother(V17.3, Z82.49) Status:Active Unknown Family Member Name Dates Details Family history of myocardial infarction: Father, Brother(V17.3, Z82.49) Status:Active Relationship Condition Age at Onset Recorded Date/T [place] Not Specified No pertinent family history Unknown Advance Directives No Advanced Directives Records Found Advance Directive Response Recorded Date/ Time Advance Directives No April 10 1:25pm Chief Complaint * GARETH MENJIVAR is being seen for a 9 month follow-up of. * Patient is in the office for follow-up for CAD. He was last seen in the office last year and interim he had 1 event few weeks ago when he had chest pain that appeared to be GERD and not cardiac in origin. He currently has no complaints except for occasional heartburn. We recommended going on pantopr azole. His pressure is slightly elevated and adjusted medication was made today. His weight has slightly increased from last visit which is addressed with the patient. His cardiac and pulm examinations were normal. Recent lab data were reviewed and all the numbers look excellent. * ASSESSMENT AND PLAN: * 1. Coronary artery disease status post angioplasty to the RCA and the marginal in 2015 with no * indication of recurrent disease. At the present time, no cardiac * investigations will be necessary. Encouraged the patient to stay * physically active and keep taking his medications as prescribed. * 2. Hyperlipidemia, on medical therapy. Blood work was reviewed and the results are excellent * 3. Overweight. Encouraged the patient for more activities to bring * his weight under control., Target weight is 160 pounds * 4. Hypertension, presently not under control. Valsartan 80 mg daily is added and blood pressure check in few weeks is scheduled. * 5. Symptoms of active GERD. Pantoprazole 40 mg daily is added * 6. Hypothyroidism on replacement therapy under control. * Karan Hernandes MD, FACC * GARETH MENJIVAR is being seen for hypertension. * Patient is in the office for hypertension management. Since we added valsartan 80 mg daily his pressure has become under control with no side effects. His weight remains above target and was advised to bring his weight further down. No changes were made follow-up is as scheduled. * GARETH MENJIVAR is being seen for a 9 month follow-up of. * Patient is in the office for follow-up for the problems noted below with no events noted since he was last seen in the office 9 months ago. He maintains active lifestyle and denies any symptoms of angina palpitations or dyspnea and no side effect of medications. His blood work from last fall was reviewed and he is scheduled to have another blood work coming up in September. His weight is slightly above target but the rest of the examination was unremarkable. * ASSESSMENT AND PLAN: * 1. Coronary artery disease status post angioplasty to the RCA and the marginal in 2015 with no indication of recurrent disease. At the present time, no cardiac investigations will be necessary. Encouraged the patient to stay * physically active and keep taking his medications as prescribed. * 2. Hyperlipidemia, on medical therapy. Blood work is scheduled in September 2023. * 3. Overweight. Encouraged the patient for more activities to bring his weight under control., Target weight is 160 pounds * 4. Hypertension, presently under control. No changes are needed. * 5. Gout on allopurinol in remission and controlled. * 6. Hypothyroidism on replacement therapy under control. * Karan Hernandes MD, [facility] Chief Complaint and Reason for Visit Chief Complaint r07.89. r07.89. chest pain Additional Source Comments (unrecognized sect ion and content) No Status Records FoundNo Status Records FoundNo Status Records FoundNo Status Records FoundNo Status Records FoundNo Status Records FoundNo Status Records FoundNo Status Records FoundNo Status Records FoundNo Status Records FoundNo Status Records FoundNo Status Records FoundNo Status Records FoundNo Status Records Found INFORMATION SOURCE (unrecogn ized section and content) DATE CREATED AUTHOR 05/08/2018 [facility] DATE CREATED AUTHOR AUTHOR'S ORGANIZ ATION 10/15/2022 [facility] DATE CREATED AUTHOR AUTHOR'S ORGANIZ ATION 06/28/2023 [facility] DATE CREATED AUTHOR AUTHOR'S ORGANIZ ATION 06/28/2023 [employer] DATE CREATED AUTHOR AUTHOR'S ORGANIZ ATION 05/15/2024 [facility] DATE CREATED AUTHOR AUTHOR'S ORGANIZ ATION 06/22/2024 [facility] DATE CREATED AUTHOR AUTHOR'S ORGANIZ ATION 10/27/2024 [facility] DATE CREATED AUTHOR AUTHOR'S ORGANIZ ATION 11/01/2024 [facility] DATE CREATED AUTHOR AUTHOR'S ORGANIZ ATION 11/02/2024 [facility] Patient Care team informatio n (unrecognized section and content) Costing Manager Relationship Specialty Start Date End Date Juani Bishop MD [address] [facility] [place] [address] PCP - General Family Medicine 04/02/24 Team Status: Active Member Role Status Dates Juani Bishop MD Primary Care Provider Active Team Status: Inactive Member Role Status Dates Karan Hernandes MD Attending Provider Active St art: January 15, 2024 End: January 15, 2024 Juani Bishop MD Primary Care Provider Active Start: January 15, 2024 End: January 15, 2024 Team Status: Active Member Role Status Dates Karan Hernandes MD Other Provider Active Start: January 15, 2024 Juani Bishop MD Primary Care Provider Active Start: January 15, 2024 Arik Cabrales MD Attending Provider Active Star t: January 15, 2024 Team Status: Inactive Member Role Status Dates Juani Bishop MD Primary Care Provider Active Start: April 10, 2024 End: April 10, 2024 Aníbal Nelson MD Emergency Provider Active Star t: April 10, 2024 End: April 10, 2024 Costing Manager Relationship Specialty Start Date End Date Juani Bishop MD [address] [facility] [place] [address] PCP - General Family Medicine 04/02/24 Reason for Visit (unrecogniz ed section and content) Reason Comments Follow-up 9mo Reason Comments Follow-up 6 month Specialty Diagnoses / Procedures Referred By Contac t Referred To Contact Cardiology Diagnoses Atherosclerosis of coronary artery, unspecified vessel or lesion type, unspecified whether angina present, unspecified whether [place] or transplanted heart Procedures Follow Up In Cardiology Karan Hernandes MD [address] [place], [place] [id number] Phone: tel: fax: Karan Hernandes MD [address] [place], [place] [id number] Phone: tel: fax: Referral ID Status Reason Start Date Expiration Date V isits Requested Visits Authorized [id number] Authorized 04/02/2024 04/02/2025 1 1 FOR RECORDS PERTAINING TO PATIENTS WHO ARE OR HAVE BEEN ENROLLED IN A CHEMICAL DEPENDENCY/SUBSTANCEABUSE PROGRAM, SOME INFORMATION MAY BE OMITTED. This clinical summary was aggregated from multiple sources. Caution should be exercised in using it in the provision of clinical care. This summary normalizes information from multiple sources, and as a consequence, information in this document may materially change the coding, format and clinical context of patient data. In addition, data may be omitted in some cases. CLINICAL DECISIONS SHOULD BE BASED ON THE PRIMARY CLINICAL RECORDS. [facility] provides no warranty or guarantee of the accuracy or completeness of information in this document.
[2024-11-11 11:00] VITALS: BP 139/71; PULSE 65; O2SAT 99
[2024-11-11 11:30] VITALS: BP 133/64; PULSE 59; O2SAT 99
--- NOTE | 2024-11-11 11:39 | XR_ITS ---
The [address] [address] Patient Name: AGUILAR HARRISON MRN: [id number] date: 1950 Sex: M Assigned Patient Location: ER Current Patient Location: ER Accession/Order Number: [id number] Exam Date: 11/11/2024 12:00 Report Date: 11/11/2024 12:27 At the request of: PAULA HERNANDEZ Procedure: XR chest 1V EXAMINATION: XR chest 1V HISTORY: syncope COMPARISON: No relevant comparison available. FINDINGS: LUNGS: No significant pulmonary parenchymal abnormalities. VASCULATURE: No increased pulmonary vasculature. PLEURA: No pneumothorax, effusion, or pleural thickening. CARDIAC: No cardiomegaly or cardiac silhouette abnormality. MEDIASTINUM: No visible mass or adenopathy. BONES: No fracture or visible bone lesion. OTHER: Negative. XR/XR chest 1V IMPRESSION: 1. No acute cardiopulmonary process. Electronically authenticated by: CHAVO ORTIZ Date: 11/11/2024 12:27
--- NOTE | 2024-11-11 11:39 | ECG_ITS ---
The [facility] Test Date: 2024-11-11 Pat Name: AGUILAR HARRISON Department: Room: - Gender: Male Oracle Engineer: : 1950 Requested By: JUANI BISHOP Order Number: [id number] Reading MD: COLE HINES Measurements Intervals [place] Rate: 73 P: 69 SD: 226 QRS: 27 QRSD: 70 T: 62 QT: 408 QTc: 434 Interpretive Statements 1100 Sinus rhythm 1470 with occasional supraventricular premature complexes 2231 First degree AV block 2420 RSR (QR) in lead V1/V2, consistent with right ventricular conduction delay 9150 abnormal ECG Compared to ECG 07/27/2019 17:35:51 No significant changes Electronically Signed On 11-12-2024 6:58:59 EST by COLE HINES
--- NOTE | 2024-11-11 11:42 | ED_ITS ---
Documented by User: Nuha Andersen DO 11/11/24 11:45 HPI HPI - General Adult General Chief complaint: Weakness Stated complaint: DIZZINESS TIGHT CHEST PAINS Time Seen by Provider: 11/11/24 11:01 Mode of arrival: walk-in History of Present Illness HPI narrative: Patient presents to ED complaining of chest tightness and lightheadedness. Patient states on Monday night he was diaphoretic. He said he had some chest tightness but really no other symptoms at that time. On Monday he said he inhaled some epoxy paint because he was doing some work and inhaled it accidentally. He then said he got up to go to the bathroom in the morning and had a syncopal episode while on the way to the bathroom. He has a small bruise above the right eye. He said he has had chest tightness on and off since that time. Patient states he has been lightheaded and dizzy ever since . Mild cough mild burning sensation in his throat and chest. No fevers no known sick contacts. No abdominal pain nausea vomiting. Patient states he was concerned with the syncopal episode and the dizziness that has persisted so he came in for further evaluation. Patient states the dizziness got worse again this morning and he said it lasted long enough that he was now concerned and wanted to come in for evaluation. He does say he has anxiety which causes chest tightness so he thinks that most of his issue with the chest pain however he is not sure if that is the whole reason of the chest pain. Related Data Home Medications ?Medication ?Instructions ?Recorded ?Confirmed allopurinol 300 mg tablet 300 mg PO DAILY 09/18/23 09/27/23 amlodipine 5 mg tablet 5 mg PO DAILY 09/18/23 09/27/23 aspirin 81 mg capsule 81 mg PO DAILY 09/18/23 09/27/23 atenolol 50 mg tablet 50 mg PO DAILY 09/18/23 09/27/23 atorvastatin 40 mg tablet 40 mg PO DAILY 09/18/23 09/27/23 lamotrigine 100 mg tablet 100 mg PO DAILY 09/18/23 09/27/23 (Lamictal) levothyroxine 75 mcg capsule 75 mcg PO DAILY 09/18/23 09/27/23 Allergies Allergy/AdvReac Type Severity Reaction Status Date / Time No Known Drug Allergies Allergy Unverified 09/18/23 14:29 Opioid HPI Opioid Management Most Recent Opioid Data: No Data to Display Review of Systems ROS Status of ROS 10 or more systems reviewed and unremark able except as noted in h istory and below PFSH PFSH Medical History (Updated 11/11/24 @ 13:13 by Janina Rojas MD) Umbilical hernia ?K42.9 - Umbilical hernia without obstruction or gangrene (ICD-10) Amputation of finger of left hand ?S68.119A - Complete traumatic metacarpophalangeal amputation of unspecified finger, initial encounter (ICD-10) Encounter for screening colonoscopy ?Z12.11 - Encounter for screening for malignant neoplasm of colon (ICD-10) Hypothyroidism ?E03.9 - Hypothyroidism, unspecified (ICD-10) HTN (hypertension) ?I10 - Essential (primary) hypertension (ICD-10) Gout ?M10.9 - Gout, unspecified (ICD-10) GERD (gastroesophageal reflux disease) ?K21.9 - Gastro-esophageal reflux disease without esophagitis (ICD-10) Erectile dysfunction ?N52.9 - Male erectile dysfunction, unspecified (ICD-10) Constipation ?K59.00 - Constipation, unspecified (ICD-10) BPH (benign prostatic hyperplasia) ?N40.0 - Benign prostatic hyperplasia without lower urinary tract symptoms (ICD-10) Surgical History (Updated 09/27/23 @ 08:46 by Annmarie Dent RN) H/O umbilical hernia repair ?Z98.890 - Other specified postprocedural states (ICD-10) ?Z87.19 - Personal history of other diseases of the digestive system (ICD-10) Hx of tonsillectomy ?Z90.89 - Acquired absence of other organs (ICD-10) H/O colonoscopy ?Z98.890 - Other specified postprocedural states (ICD-10) H/O arthroscopy of shoulder ?Z98.890 - Other specified postprocedural states (ICD-10) H/O heart artery stent ?Z95.5 - Presence of coronary angioplasty implant and graft (ICD-10) Family History (Updated 09/18/23 @ 13:43 by Kylee Castellanos, QUINN) Other Family history of hypertension Family history of myocardial infarction Social History (Updated 09/18/23 @ 13:44 by Kylee Castellanos, RN) Within the past year, how often did you have a drink containing alcohol: 2-4 times a month Within the past year, how many standard drinks containing alcohol did you have on a typical day: 1 or 2 Within the past year, how often did you have six or more drinks on one occasion: never Total score: 0 Score interpretation: A score less than 4 is consistent with normal alcohol consumption. Smoking status: Never smoker Second hand tobacco smoke exposure: No Non-prescribed substance use: denies use Previous occupational history: Retired- [employer] Known occupational exposures/hazards: No Highest level of school completed/degree received: high school graduate Little interest or pleasure in doing things: not at all Feeling down, depressed, or hopeless: not at all Exam Narrative Exam Narrative: Time Seen: [] Vital Signs: [Per nurse's notes.] General: [Alert] Skin: [Warm, dry, no rash.] Head: [Normocephalic, Mall hematoma above the right eye from the fall on Neck: [Supple, trachea midline.] Eye: [Pupils are equal, round and reactive to light, extraocular movements are intact, normal conjunctiva.] Ears, nose, mouth and throat: oral mucosa moist. Cardiovascular: [Regular rate and rhythm, no murmur.] Respiratory: [Lungs are clear to auscultation, respirations are non-labored, breath sounds are equal.] Chest wall: [No tenderness, no deformity.] Gastrointestinal: [Soft, nontender, non distended, normal bowel sounds.] MSK: 5 out of 5 muscle strength x 4 extremities no calf pain or edema Lymphatics: [No lymphadenopathy.] Psychiatric: [Cooperative, appropriate mood & affect.] Neurological: [Alert and oriented to person, place, time, and situation, no focal neurological deficit observed.] Constitutional Vital Signs, click to edit/add: Last Vital Signs Temp 98.2 F 11/11/24 10:47 Pulse 62 11/11/24 12:06 Resp 13 11/11/24 12:06 BP 133/64 11/11/24 11:30 Pulse Ox 99 11/11/24 12:30 O2 Del Method Room Air 11/11/24 10:47 Course Vital Signs Vital signs: Vital Signs Temperature 98.2 F 11/11/24 10:47 Pulse Rate 74 11/11/24 10:47 Respiratory Rate 18 11/11/24 10:47 Blood Pressure 158/88 H 11/11/24 10:47 Pulse Oximetry 98 11/11/24 10:47 Oxygen Delivery Method Room Air 11/11/24 10:47 Temperature 98.2 F 11/11/24 10:47 Pulse Rate 62 11/11/24 12:06 Respiratory Rate 13 11/11/24 12:06 Blood Pressure 133/64 11/11/24 11:30 Pulse Oximetry 99 11/11/24 12:30 Oxygen Delivery Method Room Air 11/11/24 10:47 Medical Decision Making Lab Data Labs: Lab Results 11/11/24 11/11/24 Range/Units 11:48 11:50 WBC 3.7 L (4.0-11.0) 10^3/uL RBC 3.68 L (4.70-6.10) 10^6/uL Hgb 11.1 L (14.0-18.0) g/dL Hct 33.3 L (42.0-54.0) % MCV 90.5 (80.0-94.0) fL MCH 30.2 (25.9-34.0) pg MCHC 33.3 (29.9-35.2) g/dL RDW 12.6 (11.0-15.0) % Plt Count 183 (150-450) 10^3/uL MPV 10.6 (9.5-13.5) fL Seg Neuts % (Manual) 49.0 (43.0-75.0) Lymphocytes % (Manual) 40.0 (20.5-60.0) % Monocytes % (Manual) 8.0 (1.7-12.0) % Eosinophils % (Manual) 0.0 L (0.9-7.0) % Basophils % (Manual) 1.0 (0.2-2.0) % Metamyelocytes % 2.0 Neutrophils # (Manual) 1.81 (1.4-6.5) 10^3/uL Lymphocytes # (Manual) 1.48 (1.20-3.80) 10^3/uL Monocytes # (Manual) 0.29 L (0.30-0.80) 10^3/uL Eosinophils # (Manual) 0.00 (0.00-0.70) 10^3/uL Basophils # (Manual) 0.03 (0.00-0.10) 10^3/uL Metamyelocytes # 0.07 Sodium 128 L (136-145) mmol/L Potassium 3.8 (3.5-5.1) mmol/L Chloride 96 L (98-107) mmol/L Carbon Dioxide 25.9 (21.0-32.0) mmol/L Anion Gap 9.9 BUN 11.0 (7.0-18.0) mg/dL Creatinine 1.01 (0.70-1.30) mg/dL Est GFR ( Amer) >60 (>=60 mL/min/1.73m^2) Est GFR (Non-Af Amer) >60 (>=60 mL/min/1.73m^2) BUN/Creatinine Ratio 10.9 Glucose 167 H (74-106) mg/dL Calcium 8.3 L (8.5-10.1) mg/dL Total Bilirubin 0.7 (0.2-1.0) mg/dL AST 22 (15-37) U/L ALT 24 (16-63) U/L Alkaline Phosphatase 89 (46-116) U/L Troponin I High Sens 6.0 (4.0-76.1) pg/mL Total Protein 6.5 (6.4-8.2) g/dL Albumin 3.8 (3.4-5.0) g/dL Globulin 2.7 g/dL Albumin/Globulin Ratio 1.4 Influenza Type A Ag Negative Influenza Type B Ag Negative RSV Antigen Not detected (NOT DETECTE) SARS-CoV-2 Ag (CV2AG) Positive A (NEGATIVE) ECG Data Attestation: I personally reviewed and interpreted this ECG as follows: Interpretation: EKG INTERPRETATION Time: [] 105 Rate: [] 73 Rhythm: _ [] Normal sinus rhythm ST segments: _ [] No acute ST elevation or depression T waves: _ [] Ectopy: _ [] P wave/RI interval: _ [] QRS interval: _ [] QT interval: _ [] Comparison: _ [] Comparison EKG date: [] Performed by: [self] Discharge Plan Discharge Chief Complaint: Weakness Clinical Impression: Dehydration, Hyponatremia, COVID-19 Patient Disposition: Home, Self-Care Time of Disposition Decision: 13:12 Condition: Good Prescriptions / Home Meds: No Action allopurinol 300 mg tablet 300 mg PO DAILY amlodipine 5 mg tablet 5 mg PO DAILY aspirin 81 mg capsule 81 mg PO DAILY atenolol 50 mg tablet 50 mg PO DAILY atorvastatin 40 mg tablet 40 mg PO DAILY lamotrigine [Lamictal] 100 mg tablet 100 mg PO DAILY levothyroxine 75 mcg capsule 75 mcg PO DAILY Print Language: Romansh Instructions: Hyponatremia (ED), COVID-19 (Coronavirus Disease 2019) (ED) Referrals: JUANI BISHOP [Primary Care Provider] - 1 week Discharge Date/Time: 11/11/24 13:45 Documented by User: Janina Rojas MD 11/11/24 15:01 HPI HPI - General Adult General Chief complaint: Weakness Stated complaint: DIZZINESS TIGHT CHEST PAINS Time Seen by Provider: 11/11/24 11:01 Related Data Home Medications ?Medication ?Instructions ?Recorded ?Confirmed allopurinol 300 mg tablet 300 mg PO DAILY 09/18/23 09/27/23 amlodipine 5 mg tablet 5 mg PO DAILY 09/18/23 09/27/23 aspirin 81 mg capsule 81 mg PO DAILY 09/18/23 09/27/23 atenolol 50 mg tablet 50 mg PO DAILY 09/18/23 09/27/23 atorvastatin 40 mg tablet 40 mg PO DAILY 09/18/23 09/27/23 lamotrigine 100 mg tablet 100 mg PO DAILY 09/18/23 09/27/23 (Lamictal) levothyroxine 75 mcg capsule 75 mcg PO DAILY 09/18/23 09/27/23 Allergies Allergy/AdvReac Type Severity Reaction Status Date / Time No Known Drug Allergies Allergy Unverified 09/18/23 14:29 Opioid HPI Opioid Management Most Recent Opioid Data: No Data to Display [facility] Medical History (Updated 11/11/24 @ 13:13 by Janina Rojas MD) Umbilical hernia ?K42.9 - Umbilical hernia without obstruction or gangrene (ICD-10) Amputation of finger of left hand ?S68.119A - Complete traumatic metacarpophalangeal amputation of unspecified finger, initial encounter (ICD-10) Encounter for screening colonoscopy ?Z12.11 - Encounter for screening for malignant neoplasm of colon (ICD-10) Hypothyroidism ?E03.9 - Hypothyroidism, unspecified (ICD-10) HTN (hypertension) ?I10 - Essential (primary) hypertension (ICD-10) Gout ?M10.9 - Gout, unspecified (ICD-10) GERD (gastroesophageal reflux disease) ?K21.9 - Gastro-esophageal reflux disease without esophagitis (ICD-10) Erectile dysfunction ?N52.9 - Male erectile dysfunction, unspecified (ICD-10) Constipation ?K59.00 - Constipation, unspecified (ICD-10) BPH (benign prostatic hyperplasia) ?N40.0 - Benign prostatic hyperplasia without lower urinary tract symptoms (ICD-10) Surgical History (Updated 09/27/23 @ 08:46 by Annmarie Dent RN) H/O umbilical hernia repair ?Z98.890 - Other specified postprocedural states (ICD-10) ?Z87.19 - Personal history of other diseases of the digestive system (ICD-10) Hx of tonsillectomy ?Z90.89 - Acquired absence of other organs (ICD-10) H/O colonoscopy ?Z98.890 - Other specified postprocedural states (ICD-10) H/O arthroscopy of shoulder ?Z98.890 - Other specified postprocedural states (ICD-10) H/O heart artery stent ?Z95.5 - Presence of coronary angioplasty implant and graft (ICD-10) Family History (Updated 09/18/23 @ 13:43 by Kylee Castellanos RN) Other Family history of hypertension Family history of myocardial infarction Social History (Updated 09/18/23 @ 13:44 by Kylee Castellanos RN) Within the past year, how often did you have a drink containing alcohol: 2-4 times a month Within the past year, how many standard drinks containing alcohol did you have on a typical day: 1 or 2 Within the past year, how often did you have six or more drinks on one occasion: never Total score: 0 Score interpretation: A score less than 4 is consistent with normal alcohol consumption. Smoking status: Never smoker Second hand tobacco smoke exposure: No Non-prescribed substance use: denies use Previous occupational history: Retired- [employer] Known occupational exposures/hazards: No Highest level of school completed/degree received: high school graduate Little interest or pleasure in doing things: not at all Feeling down, depressed, or hopeless: not at all Exam Constitutional Vital Signs, click to edit/add: Last Vital Signs Temp 98.2 F 11/11/24 10:47 Pulse 62 11/11/24 12:06 Resp 13 11/11/24 12:06 BP 133/64 11/11/24 11:30 Pulse Ox 99 11/11/24 12:30 O2 Del Method Room Air 11/11/24 10:47 Course Vital Signs Vital signs: Vital Signs Temperature 98.2 F 11/11/24 10:47 Pulse Rate 74 11/11/24 10:47 Respiratory Rate 18 11/11/24 10:47 Blood Pressure 158/88 H 11/11/24 10:47 Pulse Oximetry 98 11/11/24 10:47 Oxygen Delivery Method Room Air 11/11/24 10:47 Temperature 98.2 F 11/11/24 10:47 Pulse Rate 62 11/11/24 12:06 Respiratory Rate 13 11/11/24 12:06 Blood Pressure 133/64 11/11/24 11:30 Pulse Oximetry 99 11/11/24 12:30 Oxygen Delivery Method Room Air 11/11/24 10:47 Medical Decision Making [facility] Narrative Medical decision making narrative: The patient care was transferred to sc at [address] Andersen: The patient COVID is positive CBC shows a some hyponatremia and that mostly secondary to hydration especially the patient mentioned that over the last few days he had some time nausea and he think he has been drinking enough water The patient was provided with IV fluid after which she was feeling much better He had a vasovagal attack when he was in the bathroom urinating and that when he think he passed out The patient EKG in the ER showed no acute changes or any heart block he had a sinus rhythm on his EKG with no ST elevation or depression heart rate was 73 Right now the patient just to continue hydration and supportive care for COVID- 19 The patient is to follow up with primary care physician in next 2-3 days or to return to the emergency department should any of the signs or symptoms worsen or new symptoms develop. The patient agrees with the following Diagnosis and Treatment plan and the patient will be discharged home. Lab Data Labs: Lab Results 11/11/24 11/11/24 Range/Units 11:48 11:50 WBC 3.7 L (4.0-11.0) 10^3/uL RBC 3.68 L (4.70-6.10) 10^6/uL Hgb 11.1 L (14.0-18.0) g/dL Hct 33.3 L (42.0-54.0) % MCV 90.5 (80.0-94.0) fL MCH 30.2 (25.9-34.0) pg MCHC 33.3 (29.9-35.2) g/dL RDW 12.6 (11.0-15.0) % Plt Count 183 (150-450) 10^3/uL MPV 10.6 (9.5-13.5) fL Seg Neuts % (Manual) 49.0 (43.0-75.0) Lymphocytes % (Manual) 40.0 (20.5-60.0) % Monocytes % (Manual) 8.0 (1.7-12.0) % Eosinophils % (Manual) 0.0 L (0.9-7.0) % Basophils % (Manual) 1.0 (0.2-2.0) % Metamyelocytes % 2.0 Neutrophils # (Manual) 1.81 (1.4-6.5) 10^3/uL Lymphocytes # (Manual) 1.48 (1.20-3.80) 10^3/uL Monocytes # (Manual) 0.29 L (0.30-0.80) 10^3/uL Eosinophils # (Manual) 0.00 (0.00-0.70) 10^3/uL Basophils # (Manual) 0.03 (0.00-0.10) 10^3/uL Metamyelocytes # 0.07 Sodium 128 L (136-145) mmol/L Potassium 3.8 (3.5-5.1) mmol/L Chloride 96 L (98-107) mmol/L Carbon Dioxide 25.9 (21.0-32.0) mmol/L Anion Gap 9.9 BUN 11.0 (7.0-18.0) mg/dL Creatinine 1.01 (0.70-1.30) mg/dL Est GFR ( Amer) >60 (>=60 mL/min/1.73m^2) Est GFR (Non-Af Amer) >60 (>=60 mL/min/1.73m^2) BUN/Creatinine Ratio 10.9 Glucose 167 H (74-106) mg/dL Calcium 8.3 L (8.5-10.1) mg/dL Total Bilirubin 0.7 (0.2-1.0) mg/dL AST 22 (15-37) U/L ALT 24 (16-63) U/L Alkaline Phosphatase 89 (46-116) U/L Troponin I High Sens 6.0 (4.0-76.1) pg/mL Total Protein 6.5 (6.4-8.2) g/dL Albumin 3.8 (3.4-5.0) g/dL Globulin 2.7 g/dL Albumin/Globulin Ratio 1.4 Influenza Type A Ag Negative Influenza Type B Ag Negative RSV Antigen Not detected (NOT DETECTE) SARS-CoV-2 Ag (CV2AG) Positive A (NEGATIVE) Discharge Plan Discharge Chief Complaint: Weakness Clinical Impression: Dehydration, Hyponatremia, COVID-19 Patient Disposition: Home, Self-Care Time of Disposition Decision: 13:12 Condition: Good Prescriptions / Home Meds: No Action allopurinol 300 mg tablet 300 mg PO DAILY amlodipine 5 mg tablet 5 mg PO DAILY aspirin 81 mg capsule 81 mg PO DAILY atenolol 50 mg tablet 50 mg PO DAILY atorvastatin 40 mg tablet 40 mg PO DAILY lamotrigine [Lamictal] 100 mg tablet 100 mg PO DAILY levothyroxine 75 mcg capsule 75 mcg PO DAILY Print Language: Romansh Instructions: Hyponatremia (ED), COVID-19 (Coronavirus Disease 2019) (ED) Referrals: JUANI BISHOP [Primary Care Provider] - 1 week Discharge Date/Time: 11/11/24 13:45
--- NOTE | 2024-11-11 11:45 | CT_ITS ---
The [address] [address] Patient Name: AGUILAR HARRISON MRN: [id number] date: 1950 Sex: M Assigned Patient Location: ER Current Patient Location: ER Accession/Order Number: [id number] Exam Date: 11/11/2024 12:15 Report Date: 11/11/2024 12:38 At the request of: PAULA HERNANDEZ Procedure: CT head/brain wo con EXAMINATION: CT head/brain wo con HISTORY: syncope head injury COMPARISON: No relevant comparison available. TECHNIQUE: Axial CT images were obtained without IV contrast. Dose reduction techniques were achieved by using automated exposure control and/or adjustment of mA and/or kV according to patient size and/or use of iterative reconstruction technique. FINDINGS: BRAIN: No edema, hemorrhage, mass, acute infarction, or inappropriate atrophy. CSF SPACES: No hydrocephalus, subarachnoid hemorrhage, or mass. Appropriate for age. SKULL: No fracture, mass, or other significant visible lesion. SINUSES: No significant mucosal thickening or fluid on the limited views. ORBITS: No appreciable abnormality on the limited views. OTHER: Negative CT/CT head/brain wo con IMPRESSION: 1. Normal CT appearance of the brain for patient's age. No suspicious findings. 2. No fracture of the calvarium or scalp hematoma. Electronically authenticated by: CHAVO ORTIZ Date: 11/11/2024 12:38
[2024-11-11] MEDS: 0.9 % SODIUM CHLORIDE 500 ML IV (12:03)
[2024-11-11 12:05] LABS: Hematocrit 33.3 % (42.0-54.0); Hemoglobin 11.1 g/dL (14.0-18.0); Mean Corpuscular HGB Conc 33.3 g/dL (29.9-35.2); Mean Corpuscular Hemoglobin 30.2 pg (25.9-34.0); Mean Corpuscular Volume 90.5 fL (80.0-94.0); Mean Platelet Volume 10.6 fL (9.5-13.5); Platelet Count 183 10^3/uL (150-450); Red Blood Count 3.68 10^6/uL (4.70-6.10); Red Cell Distribution Width 12.6 % (11.0-15.0); White Blood Count 3.7 10^3/uL (4.0-11.0)
[2024-11-11 12:06] VITALS: PULSE 62
[2024-11-11 12:24] LABS: Influenza Virus A Antigen Negative; Influenza Virus B Antigen Negative; Internal Control Within Normal Limits; Respiratory Syncytial Virus Not Detected (NOT DETECTE)
[2024-11-11 12:25] LABS: Basophils Abs Manual 0.03 10^3/uL (0.00-0.10); Lymphocytes Absolute Manual 1.48 10^3/uL (1.20-3.80); Metamyelocytes Absolute Manual 0.07; Monocytes Absolute Manual 0.29 10^3/uL (0.30-0.80); Segmented Neut Absolute Manual 1.81 10^3/uL (1.4-6.5)
[2024-11-11 12:27] LABS: SARS-CoV-2 Ag POSITIVE (NEGATIVE)
[2024-11-11 12:30] VITALS: O2SAT 99
[2024-11-11 12:31] LABS: Alanine Aminotransferase 24 U/L (16-63); Albumin Globulin Ratio 1.4; Albumin Level 3.8 g/dL (3.4-5.0); Alkaline Phosphatase 89 U/L (46-116); Anion Gap 9.9; Aspartate Amino Transferase 22 U/L (15-37); BUN Creatinine Ratio 10.9; Bilirubin Total 0.7 mg/dL (0.2-1.0); Calcium 8.3 mg/dL (8.5-10.1); Carbon Dioxide 25.9 mmol/L (21.0-32.0); Chloride 96 mmol/L (98-107); Estimated GFR (African America >60 (>=60 mL/min/1.73m^2); Estimated GFR (Non-African Ame >60 (>=60 mL/min/1.73m^2); Globulin 2.7 g/dL; Glucose 167 mg/dL (74-106); Potassium 3.8 mmol/L (3.5-5.1); Sodium 128 mmol/L (136-145); Total Protein 6.5 g/dL (6.4-8.2)
== END 2024-11-11 13:45 | disposition home or self-care (01) ==
PROVIDERS: Emergency Provider Emergency Medicine; PCP Family Medicine
DX: U07.1 COVID-19 (principal); E86.0 Dehydration; E87.1 Hypo-osmolality and hyponatremia; R07.89 Other chest pain; Z95.5 Presence of coronary angioplasty implant and graft
CPT/HCPCS: 36415; 70450; 71045; 80053; 84484; 85007; 85027; 87420; 87804; 87811; 93005; 99285